=== PATIENT | female | born 2000 | race Caucasian/White ===

== ENCOUNTER 2022-12-02 15:50 | Outpatient (REF) | payer MEDICAID, SELFPAY ==
[2022-12-02 17:49] LABS: MANUAL DIFF FLAG NO
[2022-12-02 18:01] LABS: Basophils Absolute Auto 0.1 X10*3/uL (0.0-0.2); Basophils Percent Auto 0.8 % (0-2); Eosinophils Absolute Auto 0.2 X10*3/uL (0.0-0.4); Eosinophils Percent Auto 1.9 % (0-4); Hematocrit 39.8 % (37.0-47.0); Hemoglobin 12.4 g/dl (12.0-16.0); Imm Gran Abs Auto 0.04 X10*3/uL (0.00-0.03); Imm Gran Pct Auto 0.5 % (0.0-0.4); Lymphocytes Absolute Auto 2.6 X10*3/uL (1.2-4.9); Lymphocytes Percent Auto 31.5 % (20-40); Mean Corpuscular HGB Conc 31.2 g/dl (31.0-35.0); Mean Corpuscular Hemoglobin 27.8 pg (27.0-33.0); Mean Corpuscular Volume 89.2 fL (80.0-98.0); Mean Platelet Volume 10.9 fL (9.4-12.3); Monocytes Absolute Auto 0.5 X10*3/uL (0.1-1.2); Monocytes Percent Auto 6.4 % (2-11); Neutrophils Absolute Auto 4.9 x10*3/uL (2.0-8.3); Neutrophils Percent Auto 58.9 % (45-73); Platelet Count 351 X10*3/uL (160-400); Red Blood Count 4.46 X10*6/uL (4.20-5.50); Red Cell Distribution Width 12.5 % (11.0-16.0); White Blood Count 8.4 X10*3/uL (4.8-10.8)
[2022-12-03 01:48] LABS: Alanine Aminotransferase 22 U/L (0-31); Albumin Level 3.8 g/dL (3.5-5.0); Alkaline Phosphatase 54 U/L (39-117); Anion Gap 9 (12-20); Aspartate Amino Transferase 23 U/L (5-31); Bilirubin Direct 0.1 mg/dL (0.0-0.5); Bilirubin Total 0.3 mg/dL (0.0-1.0); Blood Urea Nitrogen 10 mg/dL (9-16); Calcium 9.2 mg/dL (8.4-10.2); Carbon Dioxide 26 mmol/L (22-29); Chloride 107 mmol/L (96-108); Cholesterol 147 mg/dL; Estimated Glomerular Filt Rate > 60; Glucose Random 88 mg/dL (60-115); HDL Cholesterol 37 mg/dL; LDL Cholesterol Calculated 80 mg/dl; Potassium 4.1 mmol/L (3.3-5.1); Sodium 138 mmol/L (135-145); Total Protein 7.2 g/dL (6.5-8.0); Triglycerides 151 mg/dL
== END 2022-12-02 15:51 | disposition home or self-care (01) ==
LOC: HO.HHCL 15:50
PROVIDERS: Visit Provider Internal Medicine
DX: E66.01 Morbid (severe) obesity due to excess calories (principal); Z68.43 Body mass index [BMI] 50.0-59.9, adult
CPT/HCPCS: 36415; 80048; 80061; 80076; 84443; 85025

== ENCOUNTER 2022-12-12 16:42 | Outpatient (REF) | payer MEDICAID, SELFPAY | END 2022-12-12 16:43 | disposition home or self-care (01) | LOC: HO.HHCLNP 16:42 | PROVIDERS: Visit Provider Advanced Practice Midwife | DX: Z12.4 Encounter for screening for malignant neoplasm of cervix (principal) | CPT/HCPCS: 88142 ==

== ENCOUNTER 2023-03-19 09:58 | Outpatient (REF) | payer MEDICAID, SELFPAY ==
[2023-03-19 11:53] LABS: Glucose Fasting 106 mg/dL (60-99)
[2023-03-19 11:55] LABS: Estimated Average Glucose 103 mg/dL; Hemoglobin A1c % 5.2 % (<6.0)
== END 2023-03-19 09:59 | disposition home or self-care (01) ==
LOC: HO.HHCL 09:58
PROVIDERS: Visit Provider Emergency Medicine
DX: E66.01 Morbid (severe) obesity due to excess calories (principal)
CPT/HCPCS: 36415; 82947; 83036

== ENCOUNTER → 2023-05-20 11:00 | Outpatient (BNV) | payer MEDICAID, SELFPAY | PROVIDERS: Visit Provider Radiology Diagnostic Radiology | DX: N63.15 Unspecified lump in the right breast, overlapping quadrants (principal) | CPT/HCPCS: 76642 ==

== ENCOUNTER 2023-05-20 11:06 | Outpatient (REF) | payer MEDICAID, SELFPAY ==
--- NOTE | ~2023-05-20 | US_ITS ---
EXAMINATION: US DIAGNOSTIC ULTRASOUND BREAST, RIGHT CLINICAL INFORMATION: 22-year-old female complaining of 2 new palpable small hard pea-sized foci at the 12:00 axis of the right breast. COMPARISON: No priors. TECHNIQUE: Ultrasound of the right breast is performed with real-time gillette scale imaging and color Doppler. Attention was given spanning the 11:00 to 1:00 axes to include the palpable foci of concern. FINDINGS: There is no focal suspicious finding. There is no solid mass, cystic abnormality, architectural abnormality, duct ectasia, or edema in the soft tissue planes. Only normal fatty breast tissue was visualized. No ultrasonographic correlate to the palpable foci was identified. US/US breast RT limited mamm only IMPRESSION: No suspicious abnormalities. No ultrasonographic correlate to the palpable foci was identified in the right breast. Decision to biopsy any palpable focus without imaging correlate must be determined on a clinical basis. ASSESSMENT: BI-RADS 1 - Negative RECOMMENDATION: 1. Patient should be managed based on the clinical impression. Decision to proceed with biopsy should be based on clinical grounds and degree of clinical concern.
== END 2023-05-20 11:07 | disposition home or self-care (01) ==
LOC: HO.MAMMO 11:06
PROVIDERS: Visit Provider Registered Nurse
DX: N63.11 Unspecified lump in the right breast, upper outer quadrant (principal)
CPT/HCPCS: 76642

== ENCOUNTER 2023-08-29 09:15 | Outpatient (REF) | payer MEDICAID, SELFPAY ==
[2023-08-29 11:34] LABS: MANUAL DIFF FLAG NO
[2023-08-29 11:42] LABS: Basophils Absolute Auto 0.1 X10*3/uL (0.0-0.2); Basophils Percent Auto 0.8 % (0-2); Eosinophils Absolute Auto 0.1 X10*3/uL (0.0-0.4); Eosinophils Percent Auto 2.2 % (0-4); Hematocrit 39.3 % (37.0-47.0); Hemoglobin 12.9 g/dl (12.0-16.0); Imm Gran Abs Auto 0.02 X10*3/uL (0.00-0.03); Imm Gran Pct Auto 0.3 % (0.0-0.4); Lymphocytes Absolute Auto 2.1 X10*3/uL (1.2-4.9); Lymphocytes Percent Auto 32.7 % (20-40); Mean Corpuscular HGB Conc 32.8 g/dl (31.0-35.0); Mean Corpuscular Hemoglobin 28.9 pg (27.0-33.0); Mean Corpuscular Volume 88.1 fL (80.0-98.0); Mean Platelet Volume 10.8 fL (9.4-12.3); Monocytes Absolute Auto 0.4 X10*3/uL (0.1-1.2); Neutrophils Absolute Auto 3.6 x10*3/uL (2.0-8.3); Platelet Count 347 X10*3/uL (160-400); Red Blood Count 4.46 X10*6/uL (4.20-5.50); Red Cell Distribution Width 12.1 % (11.0-16.0); White Blood Count 6.3 X10*3/uL (4.8-10.8)
[2023-08-29 11:51] LABS: Estimated Average Glucose 111 mg/dL; Hemoglobin A1c % 5.5 % (<6.0)
[2023-08-29 12:08] LABS: Anion Gap 15 (12-20); Blood Urea Nitrogen 18 mg/dL (9-16); Calcium 9.7 mg/dL (8.4-10.2); Carbon Dioxide 23 mmol/L (22-29); Chloride 107 mmol/L (96-108); Estimated Glomerular Filt Rate > 60; Glucose Random 102 mg/dL (60-115); Sodium 141 mmol/L (135-145); Uric Acid 7.2 mg/dL (2.4-5.7)
[2023-09-03 23:10] LABS: Lyme Abs Screen <0.90 index
== END 2023-08-29 09:16 | disposition home or self-care (01) ==
LOC: HO.HHCL 09:15
PROVIDERS: Visit Provider Emergency Medicine
DX: M79.671 Pain in right foot (principal); M79.672 Pain in left foot; N93.9 Abnormal uterine and vaginal bleeding, unspecified
CPT/HCPCS: 36415; 80048; 83036; 84550; 85025; 86617; 86618

== ENCOUNTER 2023-11-19 09:31 | Outpatient (REF) | payer MEDICAID, SELFPAY ==
[2023-11-19 11:22] LABS: MANUAL DIFF FLAG NO
[2023-11-19 11:35] LABS: Basophils Absolute Auto 0.1 X10*3/uL (0.0-0.2); Basophils Percent Auto 0.7 % (0-2); Eosinophils Absolute Auto 0.2 X10*3/uL (0.0-0.4); Eosinophils Percent Auto 1.8 % (0-4); Hematocrit 42.4 % (37.0-47.0); Hemoglobin 13.5 g/dl (12.0-16.0); Imm Gran Abs Auto 0.05 X10*3/uL (0.00-0.03); Imm Gran Pct Auto 0.6 % (0.0-0.4); Lymphocytes Percent Auto 24.3 % (20-40); Mean Corpuscular HGB Conc 31.8 g/dl (31.0-35.0); Mean Corpuscular Hemoglobin 28.5 pg (27.0-33.0); Mean Corpuscular Volume 89.6 fL (80.0-98.0); Mean Platelet Volume 10.6 fL (9.4-12.3); Monocytes Absolute Auto 0.6 X10*3/uL (0.1-1.2); Monocytes Percent Auto 6.7 % (2-11); Neutrophils Absolute Auto 5.5 x10*3/uL (2.0-8.3); Neutrophils Percent Auto 65.9 % (45-73); Platelet Count 374 X10*3/uL (160-400); Red Blood Count 4.73 X10*6/uL (4.20-5.50); Red Cell Distribution Width 12.6 % (11.0-16.0); White Blood Count 8.3 X10*3/uL (4.8-10.8)
[2023-11-19 12:14] LABS: Anion Gap 9 (12-20); Blood Urea Nitrogen 9 mg/dL (9-16); Calcium 10.2 mg/dL (8.4-10.2); Carbon Dioxide 28 mmol/L (22-29); Chloride 105 mmol/L (96-108); Estimated Glomerular Filt Rate > 60; Glucose Random 104 mg/dL (60-115); Sodium 138 mmol/L (135-145)
[2023-11-19 12:15] LABS: HCG Quantitative < 2 mIU/mL; TSH reflex Free T4 2.01 uIU/mL (0.32-4.0); Vitamin D 25-OH Total 38.3 ng/mL (>30)
[2023-11-19 12:20] LABS: Vitamin B12 404 pg/mL (200-900)
== END 2023-11-19 09:32 | disposition home or self-care (01) ==
LOC: HO.HHCL 09:31
PROVIDERS: Visit Provider Emergency Medicine
DX: R42 Dizziness and giddiness (principal); N93.9 Abnormal uterine and vaginal bleeding, unspecified
CPT/HCPCS: 36415; 80048; 82306; 82607; 84443; 84702; 85025

== ENCOUNTER 2023-11-27 14:34 | Outpatient (REF) | payer MEDICAID, SELFPAY ==
--- NOTE | ~2023-11-27 | CT_ITS ---
EXAMINATION: CT HEAD WITHOUT CONTRAST CLINICAL INFORMATION: 22-year-old female complaining of intermittent frontal headaches. COMPARISON: None available. TECHNIQUE: Contiguous axial imaging was performed from the skull base to vertex without intravenous administration of contrast. This CT examination was performed using dose optimization techniques as appropriate, variously including the following: *Automated exposure control *Adjustment of mA and/or kV according to patient size (this includes techniques or standardized protocols for targeted exams where dose is matched to indication/reason for exam; i.e. extremities or head) *Use of iterative reconstruction technique DLP: 913 mGy-cm FINDINGS: There is no evidence of intracranial hemorrhage or extra-axial fluid collection. There is no mass effect, or edema. No CT evidence of acute territorial infarct. Ventricles, sulci, and cisterns are normal in size and configuration for patient age. No hydrocephalus. No midline shift. No significant white matter abnormalities. The sella appears normal. Cerebellar tonsils are appropriately located. Globes and orbital contents image normally. Extracranial soft tissues demonstrate complete atrophy of the right parotid gland. No additional abnormalities. The paranasal sinuses, mastoid air cells, and tympanic cavities are normally aerated. No suspicious bony abnormalities. CT/CT head/brain wo IV con IMPRESSION: 1. No acute intracranial abnormality. 2. Normal intracranial structures. 3. 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 If symptoms continue, MRI would be advised.
== END 2023-11-27 14:35 | disposition home or self-care (01) ==
LOC: HO.CT 14:34
PROVIDERS: Visit Provider Emergency Medicine
DX: R51.9 Headache, unspecified (principal); R42 Dizziness and giddiness
CPT/HCPCS: 70450

== ENCOUNTER → 2023-11-27 14:36 | Outpatient (BNV) | payer MEDICAID, SELFPAY | PROVIDERS: Visit Provider Radiology Diagnostic Radiology | DX: R51.9 Headache, unspecified (principal) | CPT/HCPCS: 70450 ==

== ENCOUNTER 2023-12-18 12:53 | Outpatient (REF) | payer MEDICAID, SELFPAY ==
--- NOTE | ~2023-12-18 | US_ITS ---
EXAMINATION: US PELVIS CLINICAL INFORMATION: Left lower quadrant pelvic pain COMPARISON: None available. TECHNIQUE: Ultrasound of the pelvis is performed using both transabdominal and transvaginal transducers along with Doppler. Transvaginal imaging is performed due to inadequate visualization transabdominally. FINDINGS: Uterus: The uterus is anteverted and measures 8.6 x 4.0 x 4.5 cm. No focal fibroid. The endometrial thickness is 0.5 cm. Adnexa: Both ovaries are visualized. There is normal color flow to the adnexa. There is no ovarian torsion. There is no pelvic ascites or fluid collection. Right ovary measures 2.8 x 2.7 x 2.2 cm. Volume 8.7 mL. Left ovary measures 3.5 x 2.3 x 2.2 cm. Volume 13.5 mL. 2.0 x 1.3 x 2.2 cm follicle, normal finding, is seen. No imaging follow-up is recommended. US/US pelvic and transvaginal IMPRESSION: Normal uterus and ovaries. Electronically signed by: Erin Burciaga MD 12/18/2023 03:34 PM EDT
== END 2023-12-18 12:54 | disposition home or self-care (01) ==
LOC: HO.US 12:53
PROVIDERS: Visit Provider Advanced Practice Midwife
DX: R10.2 Pelvic and perineal pain (principal)
CPT/HCPCS: 76830; 76856

== ENCOUNTER 2024-07-26 06:59 | Emergency (ER) | payer MEDICAID, SELFPAY ==
--- NOTE | ~2024-07-26 | US_ITS ---
EXAMINATION: US ABDOMEN LIMITED HISTORY: RUQ pain, GB and CBD please TECHNIQUE: Real-time grayscale ultrasound imaging of the gallbladder was performed and images were reviewed. COMPARISON: There are no prior studies for comparison. FINDINGS: The gallbladder is unremarkable in appearance. No calculi are identified. There is no wall thickening or pericholecystic fluid. The common bile duct is normal in caliber measuring 3 mm in diameter. US/US abdomen limited IMPRESSION: Unremarkable ultrasound of the gallbladder. Electronically signed by: Elvis Summers MD 07/26/2024 09:05 AM EDT
--- NOTE | ~2024-07-26 | CT_ITS ---
EXAMINATION: CT ABDOMEN PELVIS WITHOUT IV CONTRAST HISTORY: severe R flank pain COMPARISON: There are no prior studies for comparison. TECHNIQUE: CT scan of the abdomen and pelvis was performed without contrast using standard departmental protocol. Coronal and sagittal reformatted images were generated and reviewed. Oral contrast material was not administered per department protocol. This CT exam was performed with one or more of the following dose reduction techniques: automated exposure control, adjustment of the mA and/or kV according to patient size, use of iterative reconstruction technique. DLP: 1612 mGy-cm FINDINGS: LOWER CHEST: There is patchy airspace opacity at the right lung base, consistent with pneumonia. The visualized left lung base is clear. There is no pleural effusion. CARDIOVASCULATURE: The heart is normal in size. There is no pericardial effusion. LIVER: The liver is normal in size and contour. The liver demonstrates heterogeneously decreased attenuation, consistent with steatosis. GALLBLADDER / BILE DUCTS: The gallbladder is unremarkable. There is no intra or extrahepatic biliary ductal dilatation. SPLEEN: The spleen is normal in size and has an unremarkable unenhanced appearance. PANCREAS: The pancreas has an unremarkable unenhanced appearance. ADRENAL GLANDS: Unremarkable. KIDNEYS/RETROPERITONEUM: No renal calculi are identified. There is mild right hydroureteronephrosis to the level of a 1-2 mm UVJ calculus. No left renal or ureteral calculi are identified.. LYMPH NODES: No retroperitoneal lymphadenopathy is identified in the abdomen or pelvis. VASCULATURE: The abdominal aorta is normal in caliber. MESENTERY/PERITONEUM: No free fluid. No masses. There is no free intraperitoneal gas. STOMACH: The stomach is collapsed, limiting evaluation. SMALL BOWEL: The small bowel is normal in caliber. COLON: The colon is unremarkable. APPENDIX: Normal. URINARY BLADDER/PELVIC ORGANS: The urinary bladder is collapsed, limiting evaluation. The uterus and ovaries have an unremarkable unenhanced appearance. BONES / SOFT TISSUES: No suspicious bony or soft tissue abnormalities. CT/CT abdomen pelvis wo IV con IMPRESSION: 1. Mild right hydroureteronephrosis to the level of a 1-2 mm UVJ calculus. 2. Right lower lobe pneumonia. 3. Hepatic steatosis. Electronically signed by: Elvis Summers MD 07/26/2024 09:43 AM EDT RP
[2024-07-26 07:19] VITALS: BP 139/77; PULSE 83; RESP 18; TEMP 36.2; O2SAT 96; BMI 52.7
--- NOTE | 2024-07-26 07:36 | ED_ITS ---
HPI - Abdominal Pain General Chief Complaint: Abdominal Pain Stated Complaint: right side and back pain, vomiting Time Seen by Provider: 07/26/24 07:29 Source: patient and family Mode of arrival: ambulatory Limitations: no limitations History of Present Illness ED Provider: RODERICK HPI narrative: 23 yo female with PMH of obesity but no prior surgery and no medications taken at home. At [facility] for dinner last night. She woke up abrupty with severe RUQ wrapping around to her back at 6am. She reports n/v no diarrhea and no fevers. She has never had anything like this before. Pain is severe MD elicited complaint: abdominal pain Pertinent past history: none Onset (ago): hour(s) (6am today) Pain Consistency: constant Location: RUQ Severity: severe Quality: stabbing Radiation: back Exacerbating factors: movement Relieving factors: nothing Associated symptoms: nausea and vomiting Related Data Previous Rx's ?Medication ?Instructions ?Recorded amoxicillin 875 mg-potassium 1 tab PO BID #14 tabs 07/26/24 clavulanate 125 mg tablet azithromycin 250 mg tablet See Rx Instructions PO .COMPLEX #6 07/26/24 tabs ibuprofen 600 mg tablet 600 mg PO Q6H PRN pain #30 tabs 07/26/24 ondansetron 4 mg disintegrating 4 mg PO Q8H PRN nausea and 07/26/24 tablet vomiting #20 tabs tamsulosin 0.4 mg capsule 0.4 mg PO DAILY 5 days #5 caps 07/26/24 Allergies Allergy/AdvReac Type Severity Reaction Status Date / Time No Known Allergies Allergy Verified 07/26/24 07:22 Review of Systems Review of Systems Constitutional : No Weight loss, No Fever, No Chills ENT/Mouth : No sore throat, No Rhinorrhea Eyes: No Swelling, No Redness Cardiovascular : No Chest Pain, No SOB, NoEdema Respiratory : No Cough, No Sputum, No Wheezing Gastrointestinal : Positive Nausea, Positive Vomiting, no Diarrhea, positive abdominal Pain, No Hematochezia, No Melena Genitourinary : No Dysuria, No Urinary Frequency, No Hematuria, No Urgency Musculoskeletal : No joint pain, No Myalgias, No Joint Swelling Skin : No Skin Lesions, No rash Neuro : No Weakness, No Numbness, No Dizziness, No Headache Psych : No Anxiety/Panic, No Depression All other systems reviewed and are negative. PMFSH Past Medical History Attestation statement: The following information was validated with the patient. Source: old records reviewed Medical History (Updated 07/26/24 @ 10:41 by Estefani Alaniz DO) Obesity Social History Social History (Updated 07/26/24 @ 07:46 by Estefani Alaniz DO) Patient Tobacco Use Status: Never used Tobacco Advance Directives: No Advance Directives Information Provided: No Do you have a plan to hurt others: No Plan Physical Exam ED Vital Signs: Vital Signs - 24 hr 07/26/24 07:19 Temperature 97.1 F Pulse Rate 83 Respiratory Rate 18 Blood Pressure 139/77 Pulse Oximetry 96 Oxygen Delivery Method Room Air BMI result Body Mass Index 52.7 Appearance: Alert. Oriented X3. in pain mild acute distress. Eyes: Pupils equal, round and reactive to light. ENT: Pharynx normal. Neck: Normal inspection. Neck supple. CVS: Normal heart rate and rhythm. Pulses normal. Respiratory: No respiratory distress. Breath sounds normal. Abdomen: Obese moderate RUQ pain + ag's sign. Skin: Skin warm and dry. Normal skin color. Normal skin turgor. Extremities: No lower extremity edema. No calf ttp Neuro: Oriented X 3. No motor deficit. No sensory deficit. CN2-12 intact Course Course Course Narrative: given degree of her pain and normal US I am going to repeat IV pain medications, CT scan ordered Medical Decision Making Medical Decision Making [facility] Narrative: 23 yo female with PMH of obesity here with RUQ pain n/v after eating [employer] last night she denies fevers or diarrhea. She has very localized pain to RUQ with + ag's sign at this time labs, US of GB ordered, fluids and IV toradol/morphine for pain. Possible gastritis, GERD, biliary colic, pancreatitis, renal colic Differential Diagnosis Differential Diagnoses: The differential diagnosis associated with the presentation includes gastritis, GERD, biliary colic, renal colic Admission/Observation Consideration of admission/observation: Escalation of care including admission/observation considered feels much better able to tolerate PO labs and Cr normal Lab Data [facility] Lab Attestation statement: I reviewed the patient's lab results. 07/26/24 07:49 07/26/24 07:49 Labs: Lab Results 07/26/24 07/26/24 Range/Units 07:49 10:41 WBC 6.1 (4.8-10.8) X10*3/uL RBC 4.36 (4.20-5.50) X10*6/uL Hgb 12.1 (12.0-16.0) g/dl Hct 37.4 (37.0-47.0) % MCV 85.8 (80.0-98.0) fL MCH 27.8 (27.0-33.0) pg MCHC 32.4 (31.0-35.0) g/dl RDW 12.4 (11.0-16.0) % Plt Count 317 (160-400) X10*3/uL MPV 9.9 (9.4-12.3) fL Immature Gran % (Auto) 0.7 H (0.0-0.4) % Neut % (Auto) 64.2 (45-73) % Lymph % (Auto) 23.6 (20-40) % [facility] [place] [facility] % (Auto) 8.8 (2-11) % Eos % (Auto) 2.0 (0-4) % Baso % (Auto) 0.7 (0-2) % Lymph # (Auto) 1.5 (1.2-4.9) X10*3/uL [facility] # (Auto) 0.5 (0.1-1.2) X10*3/uL Eos # (Auto) 0.1 (0.0-0.4) X10*3/uL Baso # (Auto) 0.0 (0.0-0.2) X10*3/uL Abs Immat Gran (auto) 0.04 H (0.00-0.03) X10*3/uL Absolute Neuts (auto) 4.0 (2.0-8.3) x10*3/uL Absolute Nucleated RBC 0.000 (0.0-0.012) X10*3/uL Nucleated RBC % (auto) 0.0 (0.0-0.2) /100WBC Sodium 140 (135-145) mmol/L Potassium 3.7 (3.3-5.1) mmol/L Chloride 111 H (96-108) mmol/L Carbon Dioxide 22 (22-29) mmol/L Anion Gap 11 L (12-20) BUN 11 (9-16) mg/dL Creatinine 0.88 (0.5-1.4) mg/dL Estim Creat Clear Calc 156.1 Estimated GFR > 60 Random Glucose 157 H (60-115) mg/dL Calcium 9.1 D (8.4-10.2) mg/dL Magnesium 1.8 (1.6-2.6) mg/dL Total Bilirubin 0.3 (0.0-1.0) mg/dL AST 51 H (5-31) U/L ALT 76 H (0-31) U/L Alkaline Phosphatase 68 (39-117) U/L Total Protein 7.5 (6.5-8.0) g/dL Albumin 3.9 (3.5-5.0) g/dL Lipase 24 (8-78) U/L Beta HCG, Quant < 2 mIU/mL Urine Color Dark Yellow Urine Appearance Turbid Urine pH 5.0 (5.0-9.0) Ur Specific Hill >= 1.030 H (1.005-1.025) Urine Protein 300 (3+) H (Neg-Trace) mg/dL Urine Glucose (UA) Negative (Negative) mg/dL Urine Ketones Trace (Negative) mg/dL Urine Blood Large (3+) H (Negative) Urine Nitrite Negative (Negative) Ur Leukocyte Esterase Negative (Negative) Urine RBC >20 H (0-2) /HPF Urine WBC 0-5 (0-5) /HPF Ur Squamous Epith Cells 11-20 (0-2) /HPF Other Crystals Present Urine Bacteria 1+ (None Seen) Hyaline Casts 0-2 (0-2) /LPF Independent Interpretation I performed an independent interpretation of an: Ultrasound (no GB pathology) and CT Scan (R LL pneumonia has had cough, R distal UVJ stone) Radiology Impression Discussion of test interpretation with radiology: I have reviewed the radiologist's reading. Independent Historian Clinical information obtained from an independent historian. History obtained from or confirmed by: Parent Prescription Management I considered prescription management with: Pain Medication, Antibiotic and Other Medications Administered Discontinued Medications Generic Name Dose Route Start Last Admin Trade Name Freq PRN Reason Stop Dose Admin Hydromorphone HCl 1 mg 07/26/24 09:11 07/26/24 09:31 Hydromorphone Hcl 1 Mg/Ml Syringe IVPUSH 07/26/24 09:12 1 mg ONCE ONE Administration Protocol Lactated Ringer's 1,000 mls @ 999 mls/hr 07/26/24 07:44 07/26/24 09:32 Lr IV 07/26/24 08:44 Infused .Q1H1M ONE Infusion Ketorolac Tromethamine 15 mg 07/26/24 07:43 07/26/24 07:57 Ketorolac Tromethamine 15 Mg/Ml Vial IVPUSH 07/26/24 07:44 15 mg ONCE ONE Administration Morphine Sulfate 4 mg 07/26/24 07:43 07/26/24 07:56 Morphine Sulfate 4 Mg/Ml Cartridge IVPUSH 07/26/24 07:44 4 mg ONCE ONE Administration Protocol Ondansetron HCl 4 mg 07/26/24 07:43 07/26/24 07:54 Ondansetron Hcl 4 Mg/2 Ml Vial IVPUSH 07/26/24 07:44 4 mg ONCE ONE Administration Critical Care Time Critical Care Time Critical Care Time: Yes Total Critical Care Time: 35 Attestation: repeat assessments with pain improved after IV morphine, IV dilaudid I attest to this time spent taking care of the patient Discharge Plan Discharge Clinical Impression: Renal colic Pneumonia Qualifiers: Pneumonia type: due to unspecified organism Laterality: right Lung location: l ower lobe of lung Qualified Code(s): J18.9 - Pneumonia, unspecified organism Patient Disposition: Home, Self-Care Instructions: Renal Colic (ED), Community Acquired Pneumonia (ED) Additional Instructions: stay hydrated and rest drink 40 ounces of water a day return for severe pain, fevers, vomiting, unable to urinate or any other concerns. you will pass this stone at home follow up with primary care doctor Prescriptions: New azithromycin 250 mg tablet See Rx Instructions .ROUTE .COMPLEX Qty: 6 0RF Rx Instructions: For 250 mg dose pack: take 500 mg today (day 1), then 250 mg for 4 days (days 2-5) ibuprofen 600 mg tablet 600 mg PO Q6H PRN (Reason: pain) Qty: 30 0RF ondansetron 4 mg tablet,disintegrating 4 mg PO Q8H PRN (Reason: nausea and vomiting) Qty: 20 0RF amoxicillin-pot clavulanate 875-125 mg tablet 1 tab PO BID Qty: 14 0RF tamsulosin 0.4 mg capsule 0.4 mg PO DAILY 5 Days Qty: 5 0RF Stand Alone Forms: Work/School Release Print Language: Lao
--- OUTSIDE RECORDS SUMMARY | 2024-07-26 07:47 | XMS_ITS | Encounter Summary ---
Author Organization [employer] Address [address] [facility] [address] [place] [address] Care Team Providers Care Commercial Specialist Name Role Phone Claudette Garcia MD Primary Care Provide r Reason for Visit * Reason Onset Date Comments Med Refill 05/06/2023 Encounter Details Date Type Department Care Team (Late st Contact Info) Description 05/06/2023 Refill [facility] MEDICINE [address] [place], [place] [phone] Claudette Garcia MD [address] [place] [address] Pruritus of both hands Social History Tobacco Use Types Packs/Day Years Used Date Smoking Tobacco: Never Passive Smoke Exposure: Never Smokeless Tobacco: Never Depression Answer Date Recorded Patient Health Questionnaire-9 Score 11 12/02/2022 Housing Stability Answer Date Recorded What is your housing situation today? I have indra shelton 02/02/[address] you li ve. Do you have problems with any of the following? None of the above 02/02/2023 Food Insecurity Answer Date Recorded Within the past 12 months, y ou worried that your food would run out before you got money to buy more: Never True 02/02/2023 Within the past 12 months,th e food you bought just didn't last and you didn't have enough money to get more: Never True Transportation Answer Date Recorded In the past 12 months, has l ack of transportation kept you from medical appts, meetings, work or from getting things needed for daily living? No 02/02/2023 Utilities Answer Date Recorded In the past 12 months, has t he electric, gas, oil or water company threatened to shut off services in your home? No 02/02/2023 Depression Answer Date Recorded Patient Health Questionnaire-2 Score 2 12/02/2022 Comments No Sex and Gender Information Value Date Recorded Sex Assigned at Female 02/18/2022 10:40 AM EDT Legal Sex Female 10:40 AM EDT Gender Identity Female 02/18/2022 10:40 AM EDT Sexual Orientation Straight 08/01/2022 6: 41 PM EDT documented as of this encounter Plan of Treatment Not on file documented as of this encounter Visit Diagnoses Diagnosis Pruritus of both hands documented in this encounter Additional Health Concerns Assessment Noted Time PHQ-9 Depression Total Score: 11 023 2:41 PM EDT documented as of this encounter Care Teams Commercial Specialist Relationship Specialty Start Date End Date Claudette Garcia MD [address] [place] [id number] PCP - General Family Medicine 01/25/22 documented as of this encounter
--- OUTSIDE RECORDS SUMMARY | 2024-07-26 07:47 | XMS_ITS | Encounter Summary ---
Author Organization [employer] Address [address] [address] [place] [address] Care Team Providers Care Train Electronic Technician Name Role Phone Claudette Garcia MD Primary Care Provide r Encounter Details Date Type Department Care Team (Late st Contact Info) Description 09/01/2023 Orders Only [facility] [address] [place], [place] [phone] Jesus Snow MD [address] [place], [place] [phone] Social History Tobacco Use Types Packs/Day Years [...] documented as of this encounter Visit Diagnoses Not on filedocumented in this encounter Additional Health Concerns Assessment Noted Time PHQ-9 Depression Total Score: 11 023 2:41 PM EDT documented as of this encounter Care Teams Train Electronic Technician Relationship Specialty Start Date End Date Claudette Garcia MD [address] [place] [address] PCP - General Family Medicine 01/25/22 documented as of this encounter
--- OUTSIDE RECORDS SUMMARY | 2024-07-26 07:47 | XMS_ITS | Encounter Summary ---
Author Organization [employer] Address [address] [facility] [address] [place] [address] Care Team Providers Care Financial Consultant Name Role Phone Claudette Garcia MD Primary Care Provide r Reason for Visit * Reason Onset Date Comments Med Refill 05/06/2023 Encounter Details Date Type Department Care Team (Late st Contact Info) Description 05/06/2023 Refill [facility] [address] [place], [place] [phone] Wilman Boudreaux MD [address] [place] [address] COVID-19 Social History Tobacco Use Types Packs/Day Years [...] as of this encounter Visit Diagnoses Diagnosis COVID-19 documented in this encounter Additional Health Concerns Assessment Noted Time PHQ-9 Depression Total Score: 11 023 2:41 PM EDT documented as of this encounter Care Teams Financial Consultant Relationship Specialty Start Date End Date Claudette Garcia MD [address] [place] [address] PCP - General Family Medicine 01/25/22 documented as of this encounter
--- OUTSIDE RECORDS SUMMARY | 2024-07-26 07:47 | XMS_ITS | Encounter Summary ---
Author Organization [employer] Address [address] [facility] [address] [place] [address] Care Team Providers Care Clinical Laboratory Scientist Name Role Phone Claudette Garcia MD Primary Care Provide r Reason for Visit * Reason Onset Date Comments Results 12/16/2022 PAP results Encounter Details Date Type Department Care Team ([facility] st Contact Info) Description 12/16/2022 Telephone [facility] MEDICINE [address] [place], [place] [phone] Claudette Garcia MD [address] [place] [phone] Results (PAP results/) Social History Tobacco Use Types Packs/Day Years Used Date Smoking Tobacco: Never Passive Smoke Exposure: Never Smokeless Tobacco: Never Depression Answer Date Recorded Patient Health Questionnaire-9 Score 11 12/02/2022 Depression Answer Date Recorded Patient Health Questionnaire-2 Score 2 12/02/2022 Comments No Sex and Gender Information Value Date Recorded Sex Assigned at Female 02/18/2022 10:40 AM EDT Legal Sex Female 10:40 AM EDT Gender Identity Female 02/18/2022 10:40 AM EDT Sexual Orientation Straight 08/01/2022 6: 41 PM EDT documented as of this encounter Miscellaneous Notes * Telephone Encounter - Diana Fuentes CNM - 12/17/2022 9:47 AM EDT Thanks! * Telephone Encounter - Diana Fuentes CNM - 12/17/2022 8:13 AM EDT Pap results not back yet but we'll be in touch when available. Please let Gisselle know. Thanks! * Telephone Encounter - Tala Rutledge - 12/16/2022 3:21 PM EDT Tc from patient requesting PAP results from 12/12/22. documented in this encounter Plan of Treatment Not on file documented as of this encounter Visit Diagnoses Not on filedocumented in this encounter Additional Health Concerns Assessment Noted Time PHQ-9 Depression Total Score: 11 023 2:41 PM EDT documented as of this encounter Care Teams Clinical Laboratory Scientist Relationship Specialty Start Date End Date Claudette Garcia MD [address] [place] [id number] PCP - General Family Medicine 01/25/22 documented as of this encounter
--- OUTSIDE RECORDS SUMMARY | 2024-07-26 07:47 | XMS_ITS | Clinical Summary ---
Author Organization [employer] Address [address] [facility] [address] [place] [address] Care Team Providers Care Fish Culturist Name Role Phone Claudette Garcia MD Primary Care Provide r Allergies No known active allergies Medications famotidine (Pepcid) 20 MG tablet Take 1 tablet by mouth. 2 Active fluticasone (Flonase Allergy Relief) 50 MCG/ACT nasal spray Administer 1 spray into each nostril in the morning. Shake gently. Before first use, prime pump. After use, clean tip and replace cap. 16 g 3 3 Active cetirizine (ZyrTEC) 10 MG tabletIndication s:Pruritus of both hands Take 1 tablet (10 mg) by mouth in the morning. 30 tablet 2 3 Active hydrocortisone 2.5 % creamIndications :Pruritus of both hands Apply topically 2 times daily. 28 g 3 Active cetirizine (ZyrTEC) 10 MG tablet TAKE 1 TABLET BY MOUTH EVERY DAY 90 tablet 4 Active cholecalciferol (Vitamin D-3) 25 MCG (1000 UT) capsuleIndicatio ns:Vitamin D deficiency TAKE 1 CAPSULE BY MOUTH EVERY DAY 90 capsule 4 Active diphenhydrAMINE (BENADryl) 25 MG capsule TAKE 1 TO 2 CAPSULES EVERY 6 HOURS IF NEEDED FOR ITCHING OR RASH 30 capsule 4 Active hydrocortisone 2.5 % cream APPLY TOPICALLY TWICE A DAY 15 g 1 4 Active naproxen (Naprosyn) 500 MG tablet Take 1 tablet (500 mg) by mouth with breakfast and with evening meal. 10 tablet 11 4 Active acetaminophen (Tylenol) 500 MG tablet Take 2 tablets (1,000 mg) by mouth every 6 (six) hours if needed for moderate pain or fever. 40 tablet 4 Active ibuprofen 400 MG tabletIndication s:COVID-19 TAKE 1 TABLET BY MOUTH EVERY 6 HOURS IF NEEDED FOR FEVER OR MODERATE PAIN 30 tablet 4 Active fluticasone (Flonase) 50 MCG/ACT nasal sprayIndications :Allergic rhinitis, unspecified seasonality, unspecified trigger Administer 1 spray into each nostril Once per day. Shake gently. Before first use, prime pump. After use, clean tip and replace cap. 16 g 2 4 03/22/20 25 Active cetirizine (ZyrTEC) 10 MG tabletIndication s:Allergic rhinitis, unspecified seasonality, unspecified trigger TAKE 1 TABLET BY MOUTH EVERYDAY AT BEDTIME 90 tablet 4 Active omeprazole OTC (PriLOSEC OTC) 20 MG EC tablet Take 1 tablet (20 mg) by mouth before breakfast. Do not crush, chew, or split. 30 tablet 5 06/24/19 26 Active Active Problems Problem Noted Date Diagnosed Date Allergic rhinitis 03/22/2024 Assessment & Plan (03/22/2024 2:39 PM EST): Try to limited use of heaters Humidifier may help I will prescribed Flonase and cetrizine RTC I further concerns Elevated blood uric acid level 09/01/2023 Pruritus of both hands 12/02/2022 Low vision 12/02/2022 Gastroesophageal reflux disease 03/26/2022 Class 3 severe obesity due t o excess calories without serious comorbidity with body mass index (BMI) of 50.0 to 59.9 in adult 03/26/2022 Severe obesity (BMI >= 40) 03/26/2022 Encounters Date Type Department Care Team Description 07/02/2024 Population Health Risk Score [facility] ([facility]) Department [address] [place] [address] Provider, Population Health Generic 06/23/2024 9:40 AM EST Office Visit [facility] [address] [place] [address] Jesus Snow MD Chest pain, unspecified type (Primary Dx); Epigastric pain from Last 3 Months Immunizations Name Administration Dates Next Due DTaP 12/15/2003, 0,06/07/1999,1999,03/12/1999 HPV, Quadrivalent 04/02/2013,01/10/2012,08/28/19 12 Hep B, Adolescent or Pediatric 4,06/07/1999,04/24/1999,1998 Hib (HbOC) 01/25/2000, 0,04/24/1999,1998 IPV 12/15/2003, 0,04/24/1999,1998 Influenza injectable quadriv alent preservative free 01/31/2023,01/22/2022 Influenza, IIV3, injectable 04/02/2013 MMR 12/15/2003,01/25/2000 Pfizer Covid-19 Vaccine 12+ vasquez-sucrose (Sams Cap) 07/30/2021 Pneumococcal Conjugate PCV 7 01/25/2000 Tdap 08/28/2011 Varicella 08/28/2011,01/25/2000 Social History Tobacco Use Types Packs/Day Years Used Date Smoking Tobacco: Never Passive Smoke Exposure: Never Smokeless Tobacco: Never Tobacco Cessation:Counseling Given: Not Answered Depression Answer Date Recorded Patient Health Questionnaire-9 [...] Orientation Straight 08/01/2022 6: 41 PM EDT Last Filed Vital Signs Vital Sign Reading Time Taken Comments Blood Pressure 128/83 06/23/2024 9:11 AM EST Pulse 78 06/23/2024 9:11 AM EST Temperature 36.3 ??C (97.3 ??F) 06/23/2024 9:11 AM ES T Respiratory Rate 18 06/23/2024 9:11 AM EST Oxygen Saturation 96% 06/23/2024 9:11 AM EST RA Inhaled Oxygen Concentration - - Weight 152 kg (335 lb) 03/22/2024 10:58 AM EST Height 175.3 cm (5' 9 ) 12/11/2023 9:58 AM EDT Body Mass Index 49.47 12/11/2023 9:58 AM EDT Plan of Treatment Health Maintenance Due Date Last Done Comments Alcohol/Substance Use Screening 2010 DTaP/Tdap/Td Vaccines (7 - Td or Tdap) 08/27/2021 08/28/2011, 12/15/2003, 01/25/2000, Additional history exists Depression Monitoring (PHQ-9) 06/04/2023 12/02/2022, 12/02/2022 Depression Screening 12/03/2023 12/02/2022, 12/03/19 SDOH Screening 12/03/2023 12/02/2022 COVID-19 Vaccine ( season) 2023 01/22/2022, 07/30/2021 Influenza Vaccine (#1) 2023 , 01/22/2022, 04/02/2013 Family Planning (PISQ) 12/10/2024 12/11/2023 Tobacco Screening 06/23/2025 06/23/2024 Pap Smear 12/11/2025 12/11/2022 Lipid Panel 12/03/2027 12/02/2022, 01/25/2022 Zoster Vaccines (1 of 2) 2048 RSV Patients and Patients Aged 60 years or older (1 - 1-dose 75+ series) 2073 HIB Vaccines Completed 01/25/2000, 05/22, 04/24/1999, Additional history exists Pneumococcal Vaccine: Pediatrics (0 to 5 Years) and At-Risk Patients (6 to 49) Years) Aged Out 01/25/2000 No longer eligible based on patient's age to complete this topic IPV Vaccines Completed 12/15/2003, 05/22, 04/24/1999, Additional history exists Hepatitis B Vaccines Completed 12/30/2003, 06/07/1999, 04/24/1999, Additional history exists HPV Vaccines Completed 04/02/2013, 12/21, 08/28/2011 HIV Screening Completed 01/25/2022 Hepatitis C Screening Completed 01/25/2022 Hepatitis A Vaccines Aged Out No long er eligible based on patient's age to complete this topic Meningococcal Vaccine Aged Out No perez leti eligible based on patient's age to complete this topic RSV under 20 months Aged Out No longe r eligible based on patient's age to complete this topic Rotavirus Vaccines Aged Out No longer eligible based on patient's age to complete this topic Procedures Procedure Name Priority Date/Time Associated Diagnosis Comments ECG 12-LEAD Routine 06/23/2024 1:24 PM EST Chest pain, unspecified type PAP SMEAR Routine 12/11/2022 LIPID PANEL, STANDARD Routine 12/02/2022 3:59 PM EDT Class 3 severe obesity due to excess calories without serious comorbidity with body mass index (BMI) of 50.0 to 59.9 in adult (CMS/HCC) ZZZ HISTORICAL HEPATITIS C AB W/REFL TO HCV RNA, QN, PCR Routine 01/25/2022 10:13 AM EDT HIV 1/2 ANTIGEN/ANTIBODY, FOURTH GENERATION W/RFL Routine 01/25/2022 10:13 AM EDT from Last 3 Months or Most Recently Relevant to Health Maintenance Results * Pap Smear (12/11/2022) 12/11/2022 12/13/2022 8:5 0 AM EDT Narrative [facility] - 12/28/2022 2:13 PM EDT ----- ------- Name: GISSELLE PEREZ ?Age/Sex: 22/F ? : 2000 Unit#: [id number] ?? Attend Dr: JUAN SAWANT CNM ?Re12/12/22 ?Status: DEP REF ? Location: HO.HHCLNP ? Disch: ? ----- ------- SPEC : [id number] ?RECD: 12/13/22-849 ? STATUS: ??SOUT ? REQ NUM: [id number] ? BERYL: 12/11/22- ? SUBM : JAUN SAWANT CNM ? ENTERED: ??12/13/22-1001 ?SP TYPE: Pap Smr ?OTHR : ? ORDERED: ??Pap Smear ? Interpretation ?? Satisfactory for evaluation. ?? Negative for intraepithelial lesion or malignancy. ?Clinical Information LMP: Unknown date Previous PAP test: Unknown date/findings ? Material Received ?? ThinPrep-Vaginal/Cervical ----- ------- Signed (signature on file) Laura Lin Garrett 12/28/22 1413 ? ----- ------- ? END OF REPORT ? us Juan LESTER LAB CYTOLOGY ORDERABLES F inal Result Performing Organization Address [facility] Co de Phone Number [facility] [address] [place] [address] [phone] * Lipid Panel, Standard (12/02/2022 3:59 PM EDT) Triglycerides 151 mg/dL [facility] Comment:Desirable Triglyceri de: less than 150 mg/dLBorderline High Triglyceride 150-199 mg/dLHigh Triglyceride: 200-499 mg/dLVery High Triglyceride: greater than or equal to 5OO mg/dL Cholesterol 147 mg/dL [facility] Comment:Desirable Cholestero l: less than 200 mg/dLBorderline High Cholesterol: 200-239 mg/dLHigh Cholesterol: greater than 239 mg/dL LDL Cholesterol Calculated 80 mg/dl [facility] Comment:Desirable LDL: less than 100 mg/dLNear Optimal/Above Optimal LDL: 110- 129 mg/dLBorderline High LDL: 130-159 mg/dLHigh LDL: 160-189 mg/dLVery High LDL: greater than or equal to 190 mg/dL HDL Cholesterol 37 mg/dL [facility] Comment:Desirable HDL: great er than 40 mg/dL Note: This HDL assay may give artificially low results in patients with liver disease. Blood Venous blood specimen / Unknown 12/02/2022 3:59 PM EDT 12/02/2022 5:47 PM EDT us Claudette Rainey MD LAB BLOOD ORDERABLES Final Result Performing Organization Address [facility]/ZIP Co de Phone Number [facility] [address] [place] [address] [phone] * HEPATITIS C AB W/REFL TO HCV RNA, QN, PCR (01/25/2022 10:13 AM EDT) HEPATITIS C ANTIBODY NON-REACTI VE NON-REACT RYAN [facility] INDEX 0.12 <1.00 [facility] Comment: ?? HCV antibody was non-reactive. There is no laboratory ?? evidence of HCV infection. ?? In most cases, no further action is required. However, if recent HCV exposure is suspected, a test for HCV RNA (test code 15454) is suggested. ?? For additional information please refer to http://[facility]/faq/KXZ83y2 (This link is being provided for informational/ educational purposes only.) ?? 01/25/2022 10:1 3 AM EDT us Claudette Rainey MD HISTORICAL/NON ORDERA BLE LABS Final Result Performing Organization Address [facility]/State/ZIP Co de Phone Number [facility] * HIV 1/2 ANTIGEN/ANTIBODY,FOURTH GENERATION W/RFL (01/25/2022 10:13 AM EDT) HIV-1/2 ANTIGEN AND ANTIBODIES, 4TH GENERATION W/ REFLEX NON-REACT RYAN NON-REACT RYAN [facility] Comment: HIV-1 antigen and HIV-1/HIV-2 antibodies were not detected. There is no laboratory evidence of HIV infection. ?? PLEASE NOTE: This information has been disclosed to you from records whose confidentiality may be protected by state law. ??If your state requires such protection, then the state law prohibits you from making any further disclosure of the information without the specific written consent of the person to whom it pertains, or as otherwise permitted by law. A general authorization for the release of medical or other information is NOT sufficient for this purpose. ? For additional information please refer to http://[facility]/faq/YYX867 (This link is being provided for informational/ educational purposes only.) ? The performance of this assay has not been clinically validated in patients less than 2 years old. ?? 01/25/2022 10:1 3 AM EDT us Claudette Rainey MD LAB BLOOD ORDERABLES Final Result [facility] from Last 3 Months or Most Recently Relevant to Health Maintenance [place] [address] [address] [place] [address] C3 Care Teams Fish Culturist Relationship Specialty Start Date End Date Claudette Garcia MD [address] [place] [phone] PCP - General Family Medicine 01/25/22
--- OUTSIDE RECORDS SUMMARY | 2024-07-26 07:47 | XMS_ITS | Encounter Summary ---
Author Organization [employer] Address [address] [facility] [address] [place] [address] Care Team Providers Care Manager Card Name Role Phone Claudette Garcia MD Primary Care Provide r Reason for Visit * Reason Onset Date Comments Med Refill 05/06/2023 Encounter Details Date Type Department Care Team (Late st Contact Info) Description 05/06/2023 Refill [facility] [address] [place], [place] [phone] Jesus Snow MD [address] [place], [place] [phone] Vitamin D deficiency Social History Tobacco Use Types Packs/Day Years [...] as of this encounter Visit Diagnoses Diagnosis Vitamin D deficiency documented in this encounter Additional Health Concerns Assessment Noted Time PHQ-9 Depression Total Score: 11 023 2:41 PM EDT documented as of this encounter Care Teams Manager Card Relationship Specialty Start Date End Date Claudette Garcia MD [address] [place] [phone] PCP - General Family Medicine 01/25/22 documented as of this encounter
--- OUTSIDE RECORDS SUMMARY | 2024-07-26 07:47 | XMS_ITS | Clinical Summary ---
Author Organization [facility] it Address [address] [place] [address] Care Team Providers Care Head Machine Feeder Name Role Phone Christi Mcdaniel MD Primary Care Provider [phone] Family History Medical History Relation Name Comments Asthma Brother 1 Asthma Other 1 MATERNAL SIDE Other cancer Other 2 MATERNAL SIDE Hypertension Other 3 MATERNAL SIDE Diabetes Other 4 MATERNAL SIDE Hyperlipidemia Paternal Grandmother Relation Name Status Comments Brother 1 Brother 2 Alive yari 09/03/95 Father Alive Other 1 Other 2 Other 3 Other 4 Other 5 Paternal Grandmother Social History Tobacco Use Types Packs/Day Years Used Date Smoking Tobacco: Never Alcohol Use Standard Drinks/Week Comments No 0 (1 standard drink = 0.6 oz pur e alcohol) Comments Unknown Sex and Gender Information Value Date Recorded Sex Assigned at Not on file Legal Sex Female 11:36 PM EST Gender Identity Not on file Sexual Orientation Not on file Obstetrics History Plan of Treatment Health Maintenance Due Date Last Done Comments Cervical Cancer Screening: Pap Smear 12/06/2019 DTaP,Tdap,and Td Vaccines (7 - Td or Tdap) 08/27/2021 08/28/2011, 12/15/2003, 01/25/2000, Additional history exists Depression Screening 03/24/2022 HIV Screening 03/24/2022 Hepatitis C Screening 03/24/2022 Social Influencers of Health Screening 03/24/2022 COVID-19 Vaccine ( season) 2023 Influenza Vaccine (#1) 2023 04/02/2013 HIB Vaccines Completed 01/25/2000, 05/22, 04/24/1999, Additional history exists Pneumococcal Vaccine: Pediatrics (0 to 5 Years) and At-Risk Patients (6 to 64 Years) Aged Out 01/25/2000 No longer eligible based on patient's age to complete this topic IPV Vaccines Completed 12/15/2003, 09/1999, 06/07/1999, Additional history exists MMR Vaccines Completed 12/15/2003, 01/25/2000 Hepatitis B Vaccines Completed 12/30/2003, 06/07/1999, 04/24/1999, Additional history exists Varicella Vaccines Completed 08/28/2011, 01/25/2000 HPV Vaccines Completed 04/02/2013, 12/21, 08/28/2011 Hepatitis A Vaccines Aged Out No long er eligible based on patient's age to complete this topic Meningococcal ACWY Vaccine Aged Out N o longer eligible based on patient's age to complete this topic Meningococcal B Vacine Aged Out No lo nger eligible based on patient's age to complete this topic RSV Immunization Patients Under 20 months Aged Out No longer eligible based on patient's age to complete this topic Care Teams Head Machine Feeder Relationship Specialty Start Date End Date Christi Mcdaniel MD PCP - General 08/10/10
[2024-07-26] MEDS: Lactated Ringers 1,000 ML 999 ML IV (07:50)
[2024-07-26] MEDS: ondansetron HCL 4 MG/2 ML VIAL IVPUSH (07:54)
[2024-07-26 07:55] LABS: MANUAL DIFF FLAG NO
[2024-07-26] MEDS: Morphine Sulfate 4 MG/ML CARTRIDGE IVPUSH (07:56)
[2024-07-26 07:57] LABS: Basophils Percent Auto 0.7 % (0-2); Eosinophils Absolute Auto 0.1 X10*3/uL (0.0-0.4); Hematocrit 37.4 % (37.0-47.0); Hemoglobin 12.1 g/dl (12.0-16.0); Imm Gran Abs Auto 0.04 X10*3/uL (0.00-0.03); Imm Gran Pct Auto 0.7 % (0.0-0.4); Lymphocytes Absolute Auto 1.5 X10*3/uL (1.2-4.9); Lymphocytes Percent Auto 23.6 % (20-40); Mean Corpuscular HGB Conc 32.4 g/dl (31.0-35.0); Mean Corpuscular Hemoglobin 27.8 pg (27.0-33.0); Mean Corpuscular Volume 85.8 fL (80.0-98.0); Mean Platelet Volume 9.9 fL (9.4-12.3); Monocytes Absolute Auto 0.5 X10*3/uL (0.1-1.2); Monocytes Percent Auto 8.8 % (2-11); Neutrophils Percent Auto 64.2 % (45-73); Platelet Count 317 X10*3/uL (160-400); Red Blood Count 4.36 X10*6/uL (4.20-5.50); Red Cell Distribution Width 12.4 % (11.0-16.0); White Blood Count 6.1 X10*3/uL (4.8-10.8)
[2024-07-26] MEDS: Ketorolac Tromethamine 15 MG/ML VIAL IVPUSH (07:57)
[2024-07-26 08:21] LABS: Alanine Aminotransferase 76 U/L (0-31); Albumin Level 3.9 g/dL (3.5-5.0); Alkaline Phosphatase 68 U/L (39-117); Anion Gap 11 (12-20); Aspartate Amino Transferase 51 U/L (5-31); Bilirubin Total 0.3 mg/dL (0.0-1.0); Blood Urea Nitrogen 11 mg/dL (9-16); Calcium 9.1 mg/dL (8.4-10.2); Carbon Dioxide 22 mmol/L (22-29); Chloride 111 mmol/L (96-108); Creatinine Clr Calc Pharmacy 156.1; Estimated Glomerular Filt Rate > 60; Glucose Random 157 mg/dL (60-115); Lipase 24 U/L (8-78); Magnesium 1.8 mg/dL (1.6-2.6); Potassium 3.7 mmol/L (3.3-5.1); Sodium 140 mmol/L (135-145); Total Protein 7.5 g/dL (6.5-8.0)
[2024-07-26 08:25] LABS: HCG Quantitative < 2 mIU/mL
[2024-07-26] MEDS: HYDROmorphone HCl 1 MG/ML SYRINGE IVPUSH (09:31)
[2024-07-26 11:00] LABS: Appearance Urine Turbid; Color Urine Dark Yellow; Glucose Urine UA Negative (Negative); Leukocyte Esterase Urine Negative (Negative); Nitrite Urine Negative (Negative); Specific Gravity - Urine >= 1.030 (1.005-1.025); UMIC TRIGGER UACC YES; Urine Blood Large (3+) (Negative); Urine Ketones Trace mg/dL (Negative); Urine Protein 300 (3+) mg/dL (Neg-Trace)
[2024-07-26 11:05] LABS: Bacteria Urine 1+ (None Seen); Hyaline Casts Urine 0-2 /LPF (0-2); RBC Urine >20 /HPF (0-2); WBC Urine 0-5 /HPF (0-5)
[2024-07-26 11:08] LABS: Other Crystals Urine Present
[2024-07-26 11:25] VITALS: BP 134/83; PULSE 86; RESP 18; TEMP 36.6; O2SAT 95
[2024-07-26 11:29] VITALS: BP 134/83; PULSE 86; RESP 18; TEMP 36.6; O2SAT 95
== END 2024-07-26 11:31 | disposition home or self-care (01) ==
PROVIDERS: Emergency Provider Emergency Medicine; PCP Internal Medicine
DX: J18.9 Pneumonia, unspecified organism (principal); N23 Unspecified renal colic; M54.50 Low back pain, unspecified; R11.2 Nausea with vomiting, unspecified; Z79.899 Other long term (current) drug therapy
CPT/HCPCS: 36415; 74176; 76705; 80053; 81001; 83690; 83735; 84702; 85025; 96361; 96374; 96375; 99284; J1171; J1885; J2270; J2405; J7120

== ENCOUNTER → 2024-07-26 07:43 | Outpatient (BNV) | payer MEDICAID, SELFPAY | PROVIDERS: Emergency Provider Emergency Medicine; PCP Internal Medicine; Visit Provider Radiology Diagnostic Radiology | DX: J18.9 Pneumonia, unspecified organism (principal); K76.0 Fatty (change of) liver, not elsewhere classified; N13.2 Hydronephrosis with renal and ureteral calculous obstruction; R10.11 Right upper quadrant pain | CPT/HCPCS: 74176; 76705 ==

== ENCOUNTER 2025-01-27 18:10 | Outpatient (REF) | payer MEDICAID, SELFPAY ==
[2025-01-28 03:57] LABS: CT PCR NOT DETECTED (Not Detect.); NG PCR NOT DETECTED (Not Detect.)
== END 2025-01-27 18:11 | disposition home or self-care (01) ==
LOC: HO.HHCLNP 18:10
PROVIDERS: Visit Provider Advanced Practice Midwife
DX: Z20.2 Contact with and (suspected) exposure to infections with a predominantly sexual mode of transmission (principal)
CPT/HCPCS: 87491; 87591; 87661

== ENCOUNTER 2025-02-15 19:10 | Emergency (ER) | payer MEDICAID, SELFPAY ==
--- NOTE | 2025-02-15 | ECG_ITS ---
Test Reason : CP Blood Pressure : */* mmHG Vent. Rate : 84 BPM Atrial Rate : 84 BPM P-R Int : 138 ms QRS Dur : 84 ms QT Int : 380 ms P-R-T Axes : 39 35 16 degrees QTcB Int : 449 ms Normal sinus rhythm Normal ECG No previous ECGs available Referred By: Generic ED Physician Electronically Signed By: MYRA ROSS
--- NOTE | ~2025-02-15 | XR_ITS ---
CLINICAL HISTORY: coughig. Pneumonia? 1 view chest x-ray Comparison: None provided Findings: Subtle patchy density in the right lung base. No pleural effusion. No pneumothorax. Normal heart size and central pulmonary vascularity. No acute soft tissue or osseous abnormality. Impression: 1. Patchy density in the right lung base, nonspecific however may represent developing infiltrate when considering provided clinical history. This document has been electronically signed by: Vahe Amos MD on 02/15/2025 21:02:15
[2025-02-15 19:22] VITALS: BP 138/63; PULSE 88; RESP 18; TEMP 36.8; O2SAT 96; BMI 52.1
--- NOTE | 2025-02-15 19:27 | ED.GENADULT ---
HPI - General Adult General Chief complaint: Upper Respiratory Symptoms Stated complaint: Chest pain/Flu like symptoms Time Seen by Provider: 02/15/25 21:59 Source: patient, RN notes reviewed and old records reviewed Mode of arrival: ambulatory Limitations: no limitations History of Present Illness ED Provider: Iraida HEBERT narrative: 24-year-old female presents for evaluation of cough, congestion, chest tightness and pain with inspiration. She reports that her symptoms started 3 days ago. She reports that she is coughing up yellow sputum Denies any recent travel. She is a nonsmoker. Her pain is worse with coughing. Denies any fevers, chills. She does endorse some vomiting and diarrhea that started yesterday No other complaints or concerns at this time Related Data Previous Rx's ?Medication ?Instructions ?Recorded amoxicillin 875 mg-potassium 1 tab PO BID #14 tabs 07/26/24 clavulanate 125 mg tablet azithromycin 250 mg tablet See Rx Instructions PO .COMPLEX #6 07/26/24 tabs ibuprofen 600 mg tablet 600 mg PO Q6H PRN pain #30 tabs 07/26/24 ondansetron 4 mg disintegrating 4 mg PO Q8H PRN nausea and 07/26/24 tablet vomiting #20 tabs tamsulosin 0.4 mg capsule 0.4 mg PO DAILY 5 days #5 caps 07/26/24 amoxicillin 875 mg-potassium 1 tab PO Q12H #14 tabs 02/15/25 clavulanate 125 mg tablet azithromycin 250 mg tablet See Rx Instructions PO .COMPLEX #6 02/15/25 tabs Allergies Allergy/AdvReac Type Severity Reaction Status Date / Time No Known Allergies Allergy Verified 02/15/25 19:27 Review of Systems Constitutional: Constitutional: Denies body ache(s), Denies chills, Denies fever(s), Denies headache(s), Reports lethargy and Reports malaise Eyes: Eyes: Denies irritation ENT: Denies headache(s) and Reports sore throat Cardiovascular: Cardiovascular: Reports dyspnea and Reports dyspnea on exertion Respiratory: Respiratory: Reports change in phlegm color, Reports chest congestion, Reports pain on inspiration, Reports pain with cough, Reports dyspnea and Reports dyspnea on exertion Gastrointestinal: Gastrointestinal: Denies abdominal pain, Reports diarrhea, Reports nausea and Reports vomiting Genitourinary: Genitourinary: Denies dysuria Musculoskeletal: Musculoskeletal: Denies back pain Integumentary/Breasts: Skin/Breast: Denies rash Neurologic: Denies headache(s) Psychiatric: Psychiatric: Denies anxiety [facility] Past Medical History Medical History (Updated 02/16/25 @ 00:00 by Brittney Miranda) Obesity Social History Social History (Updated 07/26/24 @ 07:46 by Estefani Alaniz DO) Patient Tobacco Use Status: Never used Tobacco Advance Directives: No Advance Directives Information Provided: No Physical Exam ED Vital Signs: Vital Signs - 24 hr 02/15/25 19:22 02/15/25 22:35 Temperature 98.3 F 98.3 F Pulse Rate 88 88 Respiratory Rate 18 18 Blood Pressure 138/63 138/63 Pulse Oximetry 96 96 Oxygen Delivery Method Room Air Room Air BMI result Body Mass Index 52.1 Const General: healthy appearing, comfortable, no acute distress, alert and awake Nutritional Appearance: well nourished Orientation/consciousness: patient oriented x3 HENMT Head: Yes normocephalic and Yes atraumatic Throat: Yes posterior oropharynx normal Eyes Eyelids: Yes eyelids normal Conjunctivae: conjunctivae normal Sclerae: sclerae normal Corneas: corneas normal Pupils: Equal, round and reactive pupils present EOM: EOMs intact bilaterally Neck Neck: Yes full ROM Resp Effort & Inspection: normal respiratory effort, able to speak in complete sentences, no audible wheezes and not labored Auscultation: clear to auscultation bilaterally Cardio Rate: regular rate Rhythm: regular rhythm GI Inspection: No distended Palpation (GI): Soft to palpation, not firm, nontender, no guarding and not rigid Skin General skin exam: elasticity normal Neuro General: patient oriented x3 Cranial nerves: Yes Equal, round and reactive pupils present and Yes Bilaterally intact EOM present Cognition (Neuro): normal cognition Extrem Other: Moving all extremities well without any obvious deformities Course Course Course Narrative: RME: 24-year-old female presents to ED for sore throat, itchy throat, coughing with phlegm, chest pain, body aches, diarrhea, and chills for the past couple of days. Swabs strep chest x-ray ordered. EKG nondiagnostic Medical Decision Making Medical Decision Making MDM Narrative: 24-year-old female presents for evaluation of cough, congestion, flu-like symptoms. Her viral swabs are negative. Her chest x-ray shows possible developing infiltrate of the right lower lobes. The patient's physical exam is unremarkable, vital signs within normal limits, she is not hypoxic, she is afebrile. EKG is nonischemic. On review of her medical history, she was treated in July for a right lower lobe pneumonia that was seen an abdominal pelvic CT scan. Therefore the x-ray report today may be a chronic finding as this is the same location. Given the did she does have acute respiratory symptoms I will treat for community-acquired pneumonia again but I recommend a repeat x-ray in 6 weeks when she is feeling better. Differential Diagnosis Differential Diagnoses: The differential diagnosis associated with the presentation includes Community-acquired pneumonia Bronchitis Upper respiratory infection Viral syndrome Influenza COVID-19 Lab Data Labs: Lab Results 02/15/25 Range/Units 19:45 COVID-19 ([facility]ANDA) Negative (Negative) COVID-19 Clin Com See Note Influenza Type A ([facility]) Negative (Negative) Influenza Type B ([facility]) Negative (Negative) Influenza A & B Note See Note S. pyogenes GrpA [facility]OY Negative (Negative) Independent Interpretation I performed an independent interpretation of an: EKG (Normal sinus rhythm with a rate of [address] segment elevation or depressions.) and Plain X-Ray Interpretation: Agree with Radiology interpretation Radiology Impression Discussion of test interpretation with radiology: I have reviewed the radiologist's reading. Radiologist Impression: Findings: Subtle patchy density in the right lung base. No pleural effusion. No pneumothorax. Normal heart size and central pulmonary vascularity. No acute soft tissue or osseous abnormality. Impression: 1. Patchy density in the right lung base, nonspecific however may represent developing infiltrate when considering provided clinical history. This document has been electronically signed by: Vahe Amos MD on 02/15/2025 21:02:15 Discharge Plan Discharge Clinical Impression: Community acquired pneumonia Patient Disposition: Home, Self-Care Instructions: Community Acquired Pneumonia (ED) Additional Instructions: Your x-ray showed a possible pneumonia of the right lower lung. Given that you are having cough, congestion and chest tightness we will treat this is community-acquired pneumonia. You did have a similar finding on an abdominal CT scan in July of this year I do recommend a repeat x-ray in 6 weeks to determine if this is a chronic finding or a true acute pneumonia Prescriptions: New azithromycin 250 mg tablet See Rx Instructions .ROUTE .COMPLEX Qty: 6 0RF Rx Instructions: For 250 mg dose pack: take 500 mg today (day 1), then 250 mg for 4 days (days 2-5) amoxicillin-pot clavulanate 875-125 mg tablet 1 tab PO Q12H Qty: 14 0RF No Action azithromycin 250 mg tablet See Rx Instructions .ROUTE .COMPLEX Qty: 6 0RF Rx Instructions: For 250 mg dose pack: take 500 mg today (day 1), then 250 mg for 4 days (days 2-5) ibuprofen 600 mg tablet 600 mg PO Q6H PRN (Reason: pain) Qty: 30 0RF ondansetron 4 mg tablet,disintegrating 4 mg PO Q8H PRN (Reason: nausea and vomiting) Qty: 20 0RF amoxicillin-pot clavulanate 875-125 mg tablet 1 tab PO BID Qty: 14 0RF tamsulosin 0.4 mg capsule 0.4 mg PO DAILY 5 Days Qty: 5 0RF Stand Alone Forms: Work/School Release Interventions: ED Discharge Assessment Last Done: 02/15/25 22:35 Discharge Date/Time: 02/15/25 22:35 Print Language: Turkmen
[2025-02-15 20:05] LABS: IDNOW Serial# 08D9AD1C; Strep A Nucleic Acid Negative (Negative)
[2025-02-15 20:06] LABS: IDNOW Serial# 58CA691E; Influenza B2 Negative (Negative)
[2025-02-15 20:07] LABS: COVID-19 Test Negative (Negative); IDNOW Serial# 55D5AD1C
--- OUTSIDE RECORDS SUMMARY | 2025-02-15 20:29 | XMS_ITS | Encounter Summary ---
Author Organization [employer] Address [address] [place] [address] Care Team Providers Care Aircraft Dispatcher Name Role Phone Claudette Garcia MD Primary Care Provide r Reason for Visit * Reason Onset Date Comments Med Refill 05/06/2023 Encounter Details Date Type Department Care Team (Late st Contact Info) Description 05/06/[address] [facility] WALK-IN [facility]ENTER [address] [place], [place] [phone] Jesus Snow MD [address] [place], [place] [phone] Vitamin D deficiency Social History Tobacco Use [...] as of this encounter Plan of Treatment Upcoming Encounters Date Type Department Care Team (Late st Contact Info) Description 03/28/2025 10:15 AM EST Office Visit [facility] MEDICINE [address] [place] [address] Claudette Garcia MD [address] [place] [address] 04/05/2025 1:00 PM EST Office Visit [facility] OPTOMETRY [address] [place] [address] Tarka, Kira, OD [address] [place] [address] documented as of this encounter Visit Diagnoses Diagnosis Vitamin D deficiency documented in this encounter Additional Health Concerns Assessment Noted Time PHQ-9 Depression Total Score: 11 023 2:41 PM EDT documented as of this encounter Care Teams Aircraft Dispatcher Relationship Specialty Start Date End Date Claudette Garcia MD [address] [place] [id number] PCP - General Family Medicine 01/25/22 documented as of this encounter
--- OUTSIDE RECORDS SUMMARY | 2025-02-15 20:29 | XMS_ITS ---
Author Name [facility] Organization Unknown Care Team Organization Name Specialty Phone Email Start Date End Da te [facility] MACO MALONE Primary Care 02/26/2022 12/08/19 24
--- OUTSIDE RECORDS SUMMARY | 2025-02-15 20:29 | XMS_ITS | Encounter Summary ---
Author Organization [employer] Address [address] [place] [address] Care Team Providers Care Dewatering Filtering Supervisor Name Role Phone Claudette Garcia MD Primary Care Provide r Reason for Visit * Reason Onset Date Comments Med Refill 05/06/2023 Encounter Details Date Type Department Care Team (Late st Contact Info) Description 05/06/2023 Refill [facility] W[facility] [address] [place], [place] [phone] Wilman Boudreaux MD [address] [place], [place] [phone] COVID-19 Social History Tobacco Use Types Packs/Day [...] Description 03/28/2025 10:15 AM EST Office Visit [facility] MEDICINE [address] [place] [address] Claudette Garcia MD [address] [place] [address] 04/05/2025 1:00 PM EST Office Visit [facility] OPTOMETRY [address] [place] [address] TarKira michaud, OD [address] [place] [address] documented as of this encounter Visit Diagnoses Diagnosis COVID-19 documented in this encounter Additional Health Concerns Assessment Noted Time PHQ-9 Depression Total Score: 11 023 2:41 PM EDT documented as of this encounter Care Teams Dewatering Filtering Supervisor Relationship Specialty Start Date End Date Claudette Garcia MD [address] [place] [id number] PCP - General Family Medicine 01/25/22 documented as of this encounter
--- OUTSIDE RECORDS SUMMARY | 2025-02-15 20:29 | XMS_ITS | Encounter Summary ---
Author Organization [employer] Address [address] 7t [place] [address] Care Team Providers Care Certified Nurse Aide Name Role Phone Claudette Garcia MD Primary Care Provide r Reason for Visit * Reason Onset Date Comments Results 12/16/2022 PAP results Encounter Details Date Type Department Care Team (Late st Contact Info) Description 12/16/[address] [facility] MEDICINE [address] [place], [place] [phone] Claudette Garcia MD [address] [place], [place] [phone] Results (PAP results/) Social History Tobacco Use [...] documented in this encounter Plan of Treatment Upcoming Encounters Date Type Department Care Team (Late st Contact Info) Description 03/28/2025 10:15 AM EST Office Visit [facility] MEDICINE [address] [place] [address] Claudette Garcia MD [address] [place] [address] 04/05/2025 1:00 PM EST Office Visit [facility] OPTOMETRY [address] [place] [address] Kira Stevenson, OD [address] [place] [address] documented as of this encounter Visit Diagnoses Not on filedocumented in this encounter Additional Health Concerns Assessment Noted Time PHQ-9 Depression Total Score: 11 023 2:41 PM EDT documented as of this encounter Care Teams Certified Nurse Aide Relationship Specialty Start Date End Date Claudette Garcia MD [address] [place] [address] PCP - General Family Medicine 01/25/22 documented as of this encounter
--- OUTSIDE RECORDS SUMMARY | 2025-02-15 20:29 | XMS_ITS | Clinical Summary ---
Author Organization [facility] it[facility] Address [address] [place] [address] Care Team Providers Care Cad Application Support Specialist Name Role Phone Christi Mcdaniel MD Primary Care Provider Family History Medical History Relation Name Comments [...] 08/27/2021 08/28/2011, 12/15/2003, 01/25/2000, Additional history exists HIV Screening 03/24/2022 Hepatitis C Screening 03/24/2022 Social Influencers of Health Screening 03/24/2022 Depression Screening 04/21/2024 COVID-19 Vaccine ( season) 2024 Influenza Vaccine (#1) 2024 04/02/2013 RSV Immunization Adult Patients (1 - 1-dose 75+ series) 2073 HIB Vaccines Completed 01/25/2000, 05/22, 04/24/1999, Additional history exists Pneumococcal Vaccine: Pediatrics (0 to 5 Years) and At-Risk Patients (6 to 49 Years) Aged Out 01/25/2000 No longer eligible [...] age to complete this topic Meningococcal B Vaccine Aged Out No l onger eligible based on patient's age to complete this topic RSV Immunization Patients Under 20 months Aged Out No longer eligible based on patient's age to complete this topic Care Teams Cad Application Support Specialist Relationship Specialty Start Date End Date Christi Mcdaniel MD PCP - General 08/10/10
--- OUTSIDE RECORDS SUMMARY | 2025-02-15 20:29 | XMS_ITS | Encounter Summary ---
Author Organization [employer] Address [address] [place] [address] Care Team Providers Care Director Of Contracts Name Role Phone Claudette Garcia MD Primary Care Provide r Encounter Details Date Type Department Care Team ([facility] st Contact Info) Description 09/01/[address] [facility] WALK-IN CENTER [address] [place], [place] [phone] Jesus Snow MD [address] [place], [place] [phone] Social History Tobacco Use Types Packs/Day Years [...] Description 03/28/2025 10:15 AM EST Office Visit [facility] MEDICINE [address] [place] [address] Claudette Garcia MD [address] [place] [address] 04/05/2025 1:00 PM EST Office Visit [facility] OPTOMETRY [address] [place] [address] Tarka, Kira, OD [address] [place] [address] documented as of this encounter Visit Diagnoses Not on filedocumented in this encounter Additional Health Concerns Assessment Noted Time PHQ-9 Depression Total Score: 11 023 2:41 PM EDT documented as of this encounter Care Teams Director Of Contracts Relationship Specialty Start Date End Date Claudette Garcia MD [address] [place] [address] PCP - General Family Medicine 01/25/22 documented as of this encounter
--- OUTSIDE RECORDS SUMMARY | 2025-02-15 20:29 | XMS_ITS | Encounter Summary ---
Author Organization [employer] Address [address] [place] [address] Care Team Providers Care Transfer Station Operator Name Role Phone Claudette Garcia MD Primary Care Provide r Reason for Visit * Reason Onset Date Comments Med Refill 05/06/2023 Encounter Details Date Type Department Care Team (Late st Contact Info) Description 05/06/2023 Refill [facility] MEDICINE [address] [place], [place] [phone] Claudette Garcia MD [address] [place], [place] [phone] Pruritus of both hands Social History Tobacco [...] Description 03/28/2025 10:15 AM EST Office Visit [facility] MEDICINE [address] [place] [address] Claudette Garcia MD [address] [place] [address] 04/05/2025 1:00 PM EST Office Visit [facility] OPTOMETRY [address] [place] [address] TarKira michaud, OD [address] [place] [address] documented as of this encounter Visit Diagnoses Diagnosis Pruritus of both hands documented in this encounter Additional Health Concerns Assessment Noted Time PHQ-9 Depression Total Score: 11 023 2:41 PM EDT documented as of this encounter Care Teams Transfer Station Operator Relationship Specialty Start Date End Date Claudette Garcia MD [address] [place] [id number] PCP - General Family Medicine 01/25/22 documented as of this encounter
--- OUTSIDE RECORDS SUMMARY | 2025-02-15 20:29 | XMS_ITS | Encounter Summary ---
Author Organization [employer] Address [address] [place] [address] Care Team Providers Care Clerical And Administrative Workers Name Role Phone Claudette Garcia MD Primary Care Provide r Encounter Details Date Type Department Care Team ([facility] st Contact Info) Description 01/31/2025 Results Follow-Up [facility] MEDICINE [address] [place] [address] Diana Fuentes CNM [address] [place] [address] Chlamydia/N. Gonorrhoeae RNA, TMA, Vagina Social History Tobacco Use Types Packs/Day Years Used Date Smoking Tobacco: Never Passive Smoke Exposure: Never Smokeless Tobacco: Never Depression Answer Date Recorded Patient Health Questionnaire-9 Score 1 01/27/2025 Patient Health Questionnaire-9 Score 1 01/27/2025 Last PHQ-9: Questionnaire Data Not on file 1 Housing Stability Answer Date Recorded What is your housing situation today? I have indra shelton 01/27/[address] you li ve. Do you have problems with any of the following? None of the above 01/27/2025 Food Insecurity Answer Date Recorded Within the past 12 months, y ou worried that your food would run out before you got money to buy more: Sometimes True 2024 Within the past 12 months,th e food you bought just didn't last and you didn't have enough money to get more: Sometimes True 01/27/2025 Transportation Answer Date Recorded In the past 12 months, has l ack of transportation kept you from medical appts, meetings, work or from getting things needed for daily living? No 01/27/2025 Utilities Answer Date Recorded In the past 12 months, has t he electric, gas, oil or water company threatened to shut off services in your home? No 01/27/2025 Depression Answer Date Recorded Patient Health Questionnaire-2 Score 0 01/27/2025 Internet Access Answer Date Recorded Internet Access Q1 Yes 01/27/2025 Internet Access Q2 Not on file 01/27/2025 Comments No Sex and Gender Information Value [...] Description 03/28/2025 10:15 AM EST Office Visit [facility] MEDICINE [address] [place] [address] Claudette Garcia MD [address] [place] [address] 04/05/2025 1:00 PM EST Office Visit [facility] OPTOMETRY [address] [place] [address] Tarka Kira, OD [address] [place] [address] documented as of this encounter Visit Diagnoses Not on filedocumented in this encounter Additional Health Concerns Assessment Noted Time PHQ-9 Depression Total Score: 1 01/28/20 25 9:26 AM EDT documented as of this encounter Care Teams Clerical And Administrative Workers Relationship Specialty Start Date End Date Claudette Garcia MD [address] [place] [id number] PCP - General Family Medicine 01/25/22 documented as of this encounter
--- OUTSIDE RECORDS SUMMARY | 2025-02-15 20:29 | XMS_ITS | Clinical Summary ---
Author Organization [email or web address] Address [address] [facility] [address] [place] [address] Care Team Providers Care Boiler Tube Blower Name Role Phone Claudette Garcia MD Primary Care Provide r Allergies No known active allergies Medications famotidine (Pepcid) 20 MG tablet Take 1 tablet by mouth. 2 Active hydrocortisone 2.5 % creamIndications :Pruritus of [...] split. 30 tablet 5 06/24/19 26 Active albuterol 108 (90 Base) MCG/ACT inhaler Inhale 2 puffs every 6 (six) hours if needed for wheezing. 18 g 11 5 07/28/19 26 Active [facility] [place] 0.05 % nasal spray ADMINISTER 2 SPRAYS INTO EACH NOSTRIL EVERY 12 (TWELVE) HOURS IF NEEDED FOR CONGESTION FOR UP TO 2 DAYS. DO NOT USE FOR MORE THAN 3 DAYS. 30 mL 5 Active ibuprofen 600 MG tabletIndication s:Costochondriti s Take 1 tablet (600 mg) by mouth every 8 (eight) hours if needed for moderate pain or fever. 30 tablet 5 01/28/20 25 fluconazole (Diflucan) 150 MG tablet Take 1 tablet (150 mg) by mouth 1 (one) time for 1 dose. 1 tablet 5 01/28/20 25 Active Problems Problem Noted Date Diagnosed Date Pneumonia of right lower lobe due to infectious organism 07/30/2024 Assessment & Plan (07/30/2024 1:44 PM EDT): Add Albuterol and Afrin to her regimen. Afrin to help with nasal congestion, max use 3 days. Albuterol prn up to every 4-6 hours for wheezing Follow-up precautions for worsening shortness or breath or wheezing or fever Allergic rhinitis 03/22/2024 Assessment & Plan (03/22/2024 [...] adult 03/26/2022 Severe obesity (BMI >= 40) ([facility]) 03/26/2022 Mejm-kf-ctda spots 08/28/2011 Attention deficit disorder of childhood 08/28/19 12 Encounters Date Type Department Care Team Description 01/31/2025 Results Follow-Up [facility] [address] [place] [phone] Juan Sawant CNM Chlamydia/N. Gonorrhoeae RNA, TMA, Vagina 01/27/2025 9:30 AM EDT Office Visit [facility] [address] [place] [phone] Juan Sawant CNM Screening examination for venereal disease (Primary Dx); Vaginal odor; Checking subdermal contraceptive 01/27/2025 Travel 01/26/2025 Telephone [facility] [address] [place] [phone] Claudette Garcia MD chartprep 12/28/2024 1:40 PM EDT Office Visit [facility] [address] [place] [phone] Johanny Lopez MD Costochondritis (Primary Dx); Chest discomfort; Witnessed episode of apnea; Daytime somnolence; BMI 50.0-59.9, adult ([facility]) 12/28/2024 Travel 12/09/2024 Telephone [facility] [address] [place] [phone] Juan Sawant CNM No Show 12/08/[address] [phone] Juan Sawant CNM chart prep from Last 3 Months Immunizations Immunization Administration Dates Next Due DTaP 12/15/2003, 0,06/07/1999,1999,03/12/1999 DTaP / HiB / IPV 01/25/2000, 0,04/24/1999,1998 HPV, Quadrivalent 04/02/2013,01/10/2012,08/28/19 12 Hep B, Adolescent or Pediatric 4,06/07/1999,04/24/1999,1998 Hib (HbOC) 01/25/2000, 0,04/24/1999,1998 IPV 12/15/2003, 0,04/24/1999,1998 Influenza injectable quadriv alent preservative free 01/31/2023,01/22/2022 Influenza, IIV3, injectable 04/02/2013 Influenza, seasonal, injecta ble, preservative free 04/02/2013 MMR 12/15/2003,01/25/2000 Pfizer Covid-19 Vaccine 12+ Bivalent 01/22/2022 Pfizer Covid-19 Vaccine 12+ vasquez-sucrose (Sams Cap) 07/30/2021 Pneumococcal Conjugate PCV 7 01/25/2000 Tdap 08/28/2011 Varicella 08/28/2011,01/25/2000 Family History Medical History Relation Name Comments Breast cancer Neg Hx Colon cancer Neg Hx Ovarian cancer Neg Hx Social History Tobacco Use Types Packs/Day Years [...] Q2 Not on file 01/27/2025 Comments No Intention Date Recorded No desire to become (finding) 1 Sex and Gender Information Value Date Recorded Sex Assigned at Female 02/18/2022 10:40 AM EDT Legal Sex Female 10:40 AM EDT Gender Identity Female 02/18/2022 10:40 AM EDT Sexual Orientation Straight 08/01/2022 6: 41 PM EDT Last Filed Vital Signs Vital Sign Reading Time Taken Comments Blood Pressure 158/88 01/27/2025 9:24 AM EDT Pulse 95 01/27/2025 9:24 AM EDT Temperature 36.8 C (98.3 F) 01/27/2025 9:24 AM EDT Respiratory Rate 16 01/27/2025 9:24 AM EDT Oxygen Saturation 98% 01/27/2025 9:24 AM EDT Inhaled Oxygen Concentration - - Weight 161 kg (355 lb) 01/27/2025 9:24 AM EDT Height 175.3 cm (5' 9 ) 07/27/2024 11:31 AM EDT Body Mass Index 52.42 07/27/2024 11:31 AM EDT Plan of Treatment Upcoming Encounters Date Type Department Care Team (Late st Contact Info) Description 03/28/2025 10:15 AM EST Office Visit [facility] [address] [place] [phone] Claudette Garcia MD [address] [place] [address] 04/05/2025 1:00 PM EST Office Visit [facility] [address] [place], [place] [phone] Kira Stevenson, OD [address] [place] [address] Health Maintenance Due Date Last Done Comments DTaP/Tdap/Td Vaccines (7 - Td or Tdap) 08/27/2021 08/28/2011, 12/15/2003, 01/25/2000, Additional history exists COVID-19 Vaccine ( season) 2024 01/22/2022, 07/30/2021 Influenza Vaccine (#1) 2024 , 01/22/2022, 04/02/2013, Additional history exists Pap Smear 12/11/2025 12/11/2022 Alcohol/Substance Use Screening 01/27/2026 01/27/2025 Depression Screening 01/27/2026 01/27/2025, 01/28/20 25 Disability Screening 01/27/2026 01/27/2025 Family Planning (PISQ) 01/27/2026 01/27/2025 SDOH Screening 01/27/2026 01/27/2025 Tobacco Screening 01/27/2026 01/27/2025 Lipid Panel 12/03/2027 12/02/2022, 01/25/2022 Zoster Vaccines (1 of 2) 2048 RSV Patients and Patients Aged 60 years or older (1 - 1-dose 75+ series) 2073 HIB Vaccines Completed 01/25/2000, 09/1999, 06/07/1999, Additional history exists Pneumococcal Vaccine: Pediatrics (0 to 5 Years) and At-Risk Patients (6 to 49) Years Aged Out 01/25/2000 No longer eligible based on patient's age to complete this topic IPV Vaccines Completed 12/15/2003, 09/1999, 06/07/1999, Additional history exists Hepatitis B Vaccines Completed [...] Procedure Name Priority Date/Time Associated Diagnosis Comments COVID-19 ID NOW ([employer]) Routine 02/15/2025 7:45 PM EDT INFLUENZA A B2 ID NOW ([employer]) Routine 02/15/2025 7:45 PM EDT STREP A NUCLEIC ACID Routine 02/15/2025 7:45 PM EDT POCT WET MOUNT/EKATERINA Routine 01/27/2025 10 :19 AM EDT Vaginal odor TRICHOMONAS VAGINALIS RNA, QUALITATIVE, TMA Routine 01/27/2025 10:00 AM EDT Screening examination for venereal disease CHLAMYDIA/N. GONORRHOEAE RNA, TMA, UROGENITAL Routine 01/27/2025 10:00 AM EDT Screening examination for venereal disease AMB REFERRAL TO SLEEP MEDICINE Routine 01/03/2025 Witnessed episode of apnea Daytime somnolence BMI 50.0-59.9, adult ([facility]) ECG 12-LEAD Routine 12/28/2024 1:31 PM EDT Chest discomfort PAP SMEAR Routine 12/11/2022 LIPID PANEL, STANDARD Routine 12/02/2022 3:59 PM EDT Class 3 severe obesity due to excess calories without serious comorbidity with body mass index (BMI) of 50.0 to 59.9 in adult ([facility]) ZZZ HISTORICAL HEPATITIS C AB W/REFL TO HCV RNA, QN, PCR Routine 01/25/2022 10:13 AM EDT HIV 1/2 ANTIGEN/ANTIBODY, FOURTH GENERATION W/RFL Routine 01/25/2022 10:13 AM EDT from Last 3 Months or Most Recently Relevant to Health Maintenance Results * Influenza A B2 ID NOW ([facility]) (02/15/2025 7:45 PM EDT) IDNOW SERIAL# [id number] [facility] Influenza A Negative Negative [facility] Influenza B2 Negative Negative [facility] Influenza A B2 Note See Note [facility] Comment:The White ID NOW In fluenza A B2 test is used for thequalitative detection of influenza A and B from patientswith signs and symptoms of respiratory infection.Negative results do not preclude influenza virus infectionand should not be used as the sole basis for diagnosis,treatment or other patient management decisions.There is a risk of false negative results due to thepresence of variants in the viral targets of the assay, lowlevels of virus in the specimen and co- infection withRespiratory Syncytial Virus. 02/15/2025 7:45 PM EDT 02/15/2025 7:51 PM EDT us Generic External Data Provider LAB MICROBIOLOGY - GENERAL ORDERABLES Final Result [facility] [address] [place] [phone] * Strep A Nucleic Acid (02/15/2025 7:45 PM EDT) IDNOW SERIAL# [id number] [facility] Strep A Nucleic Acid Negative Negative [facility] Comment:All test results mus t be correlated with clinical findings.This test has not been evaluated for monitoring treatment ofinfection.Additional follow-up testing using the culture method isrequired if the result is negative and clinical symptomspersist, or in the event of an acute rheumatic feveroutbreak. 02/15/2025 7:45 PM EDT 02/15/2025 7:51 PM EDT us Generic External Data Provider LAB MICROBIOLOGY - GENERAL ORDERABLES Final Result Performing Organization Address City/[facility]/ZIP Co de Phone Number [facility] [address] [place] [address] [phone] * COVID-19 ID NOW (WHITE) (02/15/2025 7:45 PM EDT) IDNOW SERIAL# [id number] [facility] COVID-19 TEST Negative Negative [facility] COVID-19 NOTE See Note [facility] Comment: Results are for the identification of SARS-CoV2 RNA. TheSARS-CoV2 RNA is generally detectable in respiratory samplesduring the acute phase of infection. Positive results areindicative of the presence of SARS-CoV-2 RNA; clinicalcorrelation with patient history and other diagnosticinformation is necessary to determine patient infectionstatus. Positive results do not rule out bacterial infectionor co- infection with other viruses.Testing facilities within the [facility] and [facility] are required to report all positive results tothe appropriate public health authorities.Negative results should be treated as presumptive and, ifinconsistent with clinical signs and symptoms or necessaryfor patient management, should be tested with differentauthorized or cleared molecular tests. Negative results donot preclude SARS-CoV2 RNA infection and should not be usedas the sole basis for patient management decisions. Negativeresults should be considered in the context of a patient'srecent exposures, history and the presence of clinical signsand symptoms consistent with COVID-19.This test has been authorized by the FDA under an EmergencyUse Authorization (EUA) for use by authorized laboratories.Testing performed on the White ID NOW utilizing NAAT. 02/15/2025 7:45 PM EDT 02/15/2025 7:51 PM EDT us Generic External Data Provider LAB MOLECULAR MORALES GNOSTICS ORDERABLES Final Result [facility] [address] [place] [phone] * POCT fern test, vaginal fluid manually resulted (01/27/2025 10:19 AM EDT) Pathologist [facility] EKATERINA Prep Positive Comment:pH 4.5, neg whiff, n eg clue, neg trich, neg wbc, pos hyphae Vaginal Fluid Vaginal structure / Unknown 01/27/2025 10:19 AM EDT Impressions Juan Sawant CNM - 01/27/2025 10:19 AM EDT yeast Juan Sawant CNM POINT OF CARE TEST ENTER/ EDIT ORDERABLES Final Result * Trichomonas RNA (Urine/Vaginal) (01/27/2025 10:00 AM EDT) Pathologist [facility] Trichomas vaginalis RNA, QL, TMA NOT DETECTED NOT DETECTED [facility] Comment:For additional infor adeola, please refer tohttp://education.Auto I.[employer]./faq/Trichomonastma(This link is being provided for informational/educational purposes only.)THIS TEST WAS PERFORMED AT:[facility] [place] [phone]-PIERRE GIL MD Swab 01/27/2025 10:0 0 AM EDT 01/27/2025 6:11 PM EDT Juan LESTER LAB BODY FLUIDS AND STOOL S ORDERABLES Final Result [facility] [address] [place] [phone] * Chlamydia/N. Gonorrhoeae RNA, TMA, Vagina (01/27/2025 10:00 AM EDT) Pathologist [facility] CT PCR NOT DETECTED Not Detect. [facility] Comment:A not detected test result does not exclude the possibilityof infection because test results can be affected byimproper specimen collection, concurrent antibiotic therapy,or the number of organisms in the specimen which may bebelow the sensitivity of the test. As with many diagnostictests, results from the Xpert CT/NG assay should beinterpreted in conjunction with other laboratory andclinical data available to the clinician.Xpert CT/NG performance has not been evaluated in patientsless than 14 years of age. The assay should not be used forthe evaluationof suspected sexual abuse or for other medico-legalindications. Additional testing is recommended in anycircumstance when false positive or false negative resultscould lead to adverse medical, social or psychologicalconsequences. NG PCR NOT DETECTED Not Detect. [facility] Comment:A not detected test result does not exclude the possibilityof infection because test results can be affected byimproper specimen collection, concurrent antibiotic therapy,or the number of organisms in the specimen which may bebelow the sensitivity of the test. As with many diagnostictests, results from the Xpert CT/NG assay should beinterpreted in conjunction with other laboratory andclinical data available to the clinician.Xpert CT/NG performance has not been evaluated in patientsless than 14 years of age. The assay should not be used forthe evaluationof suspected sexual abuse or for other medico-legalindications. Additional testing is recommended in anycircumstance when false positive or false negative resultscould lead to adverse medical, social or psychologicalconsequences. Swab Vaginal structure / Unknown 01/27/2025 10:00 AM EDT 01/27/2025 6:11 PM EDT Juan LESTER LAB MICROBIOLOGY - GENERA L ORDERABLES Final Result [facility] [address] [place] [address] [phone] * Referral to Sleep Medicine (01/03/2025) us Johanny Lopez MD OUTPATIENT REFERRAL ORDERA BLES Final Result * ECG 12 lead (12/28/2024 1:31 PM EDT) Narrative Johanny Lopez MD - 12/28/2024 1:31 PM EDT NSR 82 bpm No evidence of ischemia or past infarction us Johanny Lopez MD ECG ORDERABLES Final Resu lt * Pap Smear (12/11/2022) 12/11/2022 12/13/2022 8:5 0 AM EDT [facility] - 12/28/2022 2:13 PM EDT ----- ------- Name: BRENDA PEREZ Age/Sex: 22/F : 2000 Unit#: [id number] Attend Dr: JUAN SAWANT CNM Re12/12/22 Status: [facility] ----- ------- SPEC : [id number] RECD: 12/13/2250 STATUS: KELLY JAIME NUM: [id number] BERYL: 12/11/22- SUBM DR: JUAN SAWANT CNM ENTERED: 12/13/22-1000 SP TYPE: Pap Smr OT : ORDERED: Pap Smear Interpretation Satisfactory for evaluation. Negative for intraepithelial lesion or malignancy. Clinical Information LMP: Unknown date Previous PAP test: Unknown date/findings Material Received ThinPrep-Vaginal/Cervical ----- ------- Signed (signature on file) Laura Tucker 12/28/22 1413 ----- ------- END OF REPORT Juan Sawant [facility] CYTOLOGY ORDERABLES F inal Result [facility] [address] [place] [phone] * Lipid Panel, Standard (12/02/2022 3:59 PM EDT) Triglycerides 151 mg/dL [facility] Comment:Desirable Triglyceri de: less than 150 mg/dLBorderline High Triglyceride 150-199 mg/dLHigh Triglyceride: 200-499 mg/dLVery High Triglyceride: greater than or equal to 5OO mg/dL Cholesterol 147 mg/dL [facility] Comment:Desirable Cholestero l: less than 200 mg/dLBorderline High Cholesterol: 200-239 mg/dLHigh Cholesterol: greater than 239 mg/dL LDL Cholesterol Calculated 80 mg/dl [facility] Comment:Desirable LDL: less than 100 mg/dLNear Optimal/Above Optimal LDL: 110- 129 mg/dLBorderline High LDL: 130-159 mg/dLHigh LDL: 160-189 mg/dLVery High LDL: greater than or equal to 190 mg/dL HDL Cholesterol 37 mg/dL [facility] Comment:Desirable HDL: great er than 40 mg/dL Note: This HDL assay may give artificially low results in patients with liver disease. Blood Venous blood specimen / Unknown 12/02/2022 3:59 PM EDT 12/02/2022 5:47 PM EDT Claudette Rainey MD LAB BLOOD ORDERABLES Final Result Performing Organization Address City/[facility]/ZIP Co de Phone Number [facility] [address] [place] [phone] * HEPATITIS C AB W/REFL TO HCV RNA, QN, PCR (01/25/2022 10:13 AM EDT) HEPATITIS C ANTIBODY NON-REACTI VE NON-REACT RYAN [facility] INDEX 0.12 <1.00 [facility] Comment: HCV antibody was non-reactive. There is no laboratory evidence of HCV infection. In most cases, no further action is required. However, if recent HCV exposure is suspected, a test for HCV RNA (test code 64073) is suggested. For additional information please refer to http://education.Auto I.D./faq/CYP67y3 (This link is being provided for informational/ educational purposes only.) 01/25/2022 10:1 3 AM EDT Claudette Rainey MD HISTORICAL/NON ORDERA BLE LABS Final Result Performing Organization Address City/[facility] Co de Phone Number [facility] * HIV 1/2 ANTIGEN/ANTIBODY,FOURTH GENERATION W/RFL (01/25/2022 10:13 AM EDT) HIV-1/2 ANTIGEN AND ANTIBODIES, 4TH GENERATION W/ REFLEX NON-REACT RYAN NON-REACT RYAN [facility] Comment: HIV-1 antigen and HIV-1/HIV-2 antibodies were not detected. There is no laboratory evidence of HIV infection. PLEASE NOTE: This information has been disclosed to you from records whose confidentiality may be protected by state law. If your state requires such protection, then the state law prohibits you from making any further disclosure of the information without the specific written consent of the person to whom it pertains, or as otherwise permitted by law. A general authorization for the release of medical or other information is NOT sufficient for this purpose. For additional information please refer to http://education.Auto I.D./faq/JMU568 (This link is being provided for informational/ educational purposes only.) The performance of this assay has not been clinically validated in patients less than 2 years old. 01/25/2022 10:1 3 AM EDT us Claudette Rainey MD LAB BLOOD ORDERABLES Final Result [facility] from Last 3 Months or Most Recently Relevant to Health Maintenance Insurance [facility] C3 Care Teams Boiler Tube Blower Relationship Specialty Start Date End Date Claudette Garcia MD [address] [place] [phone] PCP - General Family Medicine 01/25/22
[2025-02-15 22:35] VITALS: BP 138/63; PULSE 88; RESP 18; TEMP 36.8; O2SAT 96
== END 2025-02-15 22:35 | disposition home or self-care (01) ==
PROVIDERS: Physician Assistant; Emergency Provider Emergency Medicine; PCP Internal Medicine
DX: J18.9 Pneumonia, unspecified organism (principal); R05.9 Cough, unspecified; R07.9 Chest pain, unspecified; Z03.818 Encounter for observation for suspected exposure to other biological agents ruled out
CPT/HCPCS: 71045; 87502; 87635; 87651; 93005; 99283

== ENCOUNTER → 2025-02-15 19:16 | Outpatient (BNV) | payer MEDICAID, SELFPAY | PROVIDERS: Emergency Provider Emergency Medicine; PCP Internal Medicine; Visit Provider Internal Medicine | DX: R07.9 Chest pain, unspecified (principal) | CPT/HCPCS: 93010 ==

== ENCOUNTER → 2025-02-15 19:26 | Outpatient (BNV) | payer MEDICAID, SELFPAY | PROVIDERS: PCP Internal Medicine; Visit Provider Radiology Diagnostic Radiology | DX: R91.8 Other nonspecific abnormal finding of lung field (principal) | CPT/HCPCS: 71045 ==

== ENCOUNTER 2025-03-02 09:53 | Outpatient (REF) | payer MEDICAID, SELFPAY ==
--- OUTSIDE RECORDS SUMMARY | 2025-03-02 09:40 | XMS_ITS | Encounter Summary ---
Author Organization [employer] Address [address] [facility] [address] [place] [address] Care Team Providers Care Legal Transcriber Name Role Phone Claudette Garcia MD Primary Care Provide r Reason for Referral * Neurology (Routine) - Authorized Specialty Diagnoses / Procedures Referred By Contac t Referred To Contact Diagnoses Paresthesia of foot, bilateral Paresthesia of upper limb Procedures Nerve conduction test NameJose MD [address] [place] [address] Phone: tel: fax: [address] Phone: tel: fax: Referral ID Status Reason Start Date Expiration Date V isits Requested Visits Authorized [id number] Authorized 03/02/2025 03/02/2026 1 1 Reason for Visit * Reason Comments Numbness Encounter Details Date Type Department Care Team (Late st Contact Info) Description 03/02/2025 9:40 AM EST Office Visit [facility]IN [facility] [address] [place] [address] [phone] Jose Whalen MD [address] [place] [phone] Paresthesia of foot, bilateral (Primary Dx); Paresthesia [...] 03/28/2025 10:15 AM Claudette Rainey MD MEDICINE [facility] 04/05/2025 1:00 PM Kira Stevenson OD VISION [facility] documented in this encounter Plan of Treatment Upcoming Encounters Date Type Department Care Team (Late st Contact Info) Description 03/28/2025 10:15 AM EST Office Visit [facility] MEDICINE [address] [place] [address] Claudette Garcia MD [address] [place] [address] 04/05/2025 1:00 PM EST Office Visit [facility] OPTOMETRY [address] [place] [address] Kira Stevenson OD [address] [place] [address] Scheduled Orders Name Type Priority Associated Diagnoses Orde r Schedule Basic Metabolic Panel Lab Routine Paresthesia of foot, bilateral Paresthesia of upper limb Expected: 03/02/2025 (Approximate), Expires: 03/02/2026 Hemoglobin A1c Lab Routine Paresthesia of foot, bilateral Paresthesia of upper limb Expected: 03/02/2025 (Approximate), Expires: 03/02/2026 Vitamin B12/Folate, Serum Panel Lab Routine Paresthesia of foot, bilateral Paresthesia of upper limb Expected: 03/02/2025, Expires: 03/02/2026 TSH W/Reflex to FT4 Lab Routine Paresthesia of foot, bilateral Paresthesia of upper limb Expected: 03/02/2025 (Approximate), Expires: 03/02/2026 Nerve conduction test Neurology Routine Paresthesia of foot, bilateral Paresthesia of upper limb Expected: 03/02/2025 (Approximate), Expires: 03/02/2026 documented as of this encounter Visit Diagnoses Diagnosis Paresthesia of foot, bilateral- Primary Paresthesia of upper limb documented in this encounter Additional Health Concerns Assessment Noted Time PHQ-9 Depression Total Score: 1 01/28/20 25 9:26 AM EDT documented as of this encounter Care Teams Legal Transcriber Relationship Specialty Start Date End Date Claudette Garcia MD [address] [place] [address] PCP - General Family Medicine 01/25/22 documented as of this encounter
--- OUTSIDE RECORDS SUMMARY | 2025-03-02 11:30 | XMS_ITS | Clinical Summary ---
Author Organization [facility] ity Address [address] [place] [address] Care Team Providers Care Paper Bag Press Operator Name Role Phone Christi Mcdaniel MD Primary [...] age to complete this topic Care Teams Paper Bag Press Operator Relationship Specialty Start Date End Date Christi Mcdaniel MD PCP - General 08/10/10
--- OUTSIDE RECORDS SUMMARY | 2025-03-02 11:30 | XMS_ITS | Encounter Summary ---
Author Organization [employer] Address [address] [facility] 7t [place] [address] Care Team Providers Care Attendant [facility] Name Role Phone Claudette Garcia MD Primary Care Provide r Encounter Details Date Type Department Care Team (Latest Contact Info) Description 03/02/2025 Travel Social History Tobacco Use Types Packs/Day Years [...] 03/28/2025 10:15 AM EST Office Visit [facility] MEDICINE [address] [place] [address] Claudette Garcia MD [address] [place] [address] 04/05/2025 1:00 PM EST Office Visit [facility] OPTOMETRY [address] [place] [address] Tarka, Kira, OD [address] [place] [address] documented as of this encounter Visit Diagnoses Not on filedocumented in this encounter Additional Health Concerns Assessment Noted Time PHQ-9 Depression Total Score: 1 01/28/20 25 9:26 AM EDT documented as of this encounter Care Teams Attendant [facility] Relationship Specialty Start Date End Date Claudette Garcia MD [address] [place] [phone] PCP - General Family Medicine 01/25/22 documented as of this encounter
--- OUTSIDE RECORDS SUMMARY | 2025-03-02 11:30 | XMS_ITS | Clinical Summary ---
Author Organization [employer] Address [address] [facility] 7t [place] [address] Care Team Providers Care Heating Fixture Tender Name Role Phone Claudette Garcia MD Primary Care Provide r Allergies No known active allergies Medications famotidine (Pepcid) 20 MG tablet Take 1 tablet by mouth. 01/24/20 22 Active hydrocortisone 2.5 % creamIndicatio ns:Pruritus of both hands Apply topically 2 times daily. 28 g 12/03/19 23 Active cetirizine (ZyrTEC) 10 MG tablet TAKE 1 TABLET BY MOUTH EVERY DAY 90 tablet 05/06/19 24 Active acetaminophen (Tylenol) 500 MG tablet Take 2 tablets (1,000 mg) by mouth every 6 (six) hours if needed for moderate pain or fever. 40 tablet 11/19/19 24 Active ibuprofen 400 MG tabletIndicati ons:COVID-19 TAKE 1 TABLET BY MOUTH EVERY 6 HOURS IF NEEDED FOR FEVER OR MODERATE PAIN 30 tablet 11/19/19 24 Active albuterol 108 (90 Base) MCG/ACT inhaler Inhale 2 puffs every 6 (six) hours if needed for wheezing. 18 g 11 07/28/19 25 026 Active cholecalcifero l (Vitamin D-3) 25 MCG (1000 UT) capsuleIndicat ions:Vitamin D deficiency TAKE 1 CAPSULE BY MOUTH EVERY DAY 90 capsule 02/19/20 25 Active diphenhydrAMIN E (BENADryl) 25 MG capsule TAKE 1 TO 2 CAPSULES EVERY 6 HOURS IF NEEDED FOR ITCHING OR RASH 30 capsule 02/19/20 25 Active hydrocortisone 2.5 % cream APPLY TOPICALLY TWICE A DAY 15 g 1 02/19/20 25 Active cetirizine (ZyrTEC) 10 MG tabletIndicati ons:Allergic rhinitis, unspecified seasonality, unspecified trigger Take 1 tablet (10 mg) by mouth at bedtime. 90 tablet 02/19/20 25 Active fluticasone (Flonase) 50 MCG/ACT nasal sprayIndicatio ns:Allergic rhinitis, unspecified seasonality, unspecified trigger Administer 1 spray into each nostril Once per day. Shake gently. Before first use, prime pump. After use, clean tip and replace cap. 16 g 2 02/19/20 25 026 Active oxymetazoline ([facility] Nasal Roggen) 0.05 % nasal spray Administer 2 sprays into each nostril 2 times daily. Do not use for more than 3 days.ADMINIST ER 2 SPRAYS INTO EACH NOSTRIL EVERY 12 (TWELVE) HOURS IF NEEDED FOR CONGESTION FOR UP TO 2 DAYS. DO NOT USE FOR MORE THAN 3 DAYS. 30 mL 02/19/20 25 Active omeprazole OTC (PriLOSEC OTC) 20 MG EC tablet Take 1 tablet (20 mg) by mouth before breakfast. Do not crush, chew, or split. 90 tablet 02/19/20 25 026 Active naproxen (Naprosyn) 500 MG tablet TAKE 1 TABLET BY MOUTH WITH BREAKFAST AND EVENING MEAL 10 tablet 11 02/22/20 25 Active cholecalcifero l (Vitamin D-3) 25 MCG (1000 UT) capsuleIndicat ions:Vitamin D deficiency TAKE 1 CAPSULE BY MOUTH EVERY DAY 90 capsule 05/06/19 24 025 Discontinued(Re order (will not trigger notification to Pharmacy)) diphenhydrAMIN E (BENADryl) 25 MG capsule TAKE 1 TO 2 CAPSULES EVERY 6 HOURS IF NEEDED FOR ITCHING OR RASH 30 capsule 05/06/19 24 025 Discontinued(Re order (will not trigger notification to Pharmacy)) hydrocortisone 2.5 % cream APPLY TOPICALLY TWICE A DAY 15 g 1 05/06/19 24 025 Discontinued(Re order (will not trigger notification to Pharmacy)) naproxen (Naprosyn) 500 MG tablet Take 1 tablet (500 mg) by mouth with breakfast and with evening meal. 10 tablet 11 08/29/19 24 025 Discontinued(Re order (will not trigger notification to Pharmacy)) fluticasone (Flonase) 50 MCG/ACT nasal sprayIndicatio ns:Allergic rhinitis, unspecified seasonality, unspecified trigger Administer 1 spray into each nostril Once per day. Shake gently. Before first use, prime pump. After use, clean tip and replace cap. 16 g 2 03/22/20 24 025 Discontinued(Re order (will not trigger notification to Pharmacy)) cetirizine (ZyrTEC) 10 MG tabletIndicati ons:Allergic rhinitis, unspecified seasonality, unspecified trigger TAKE 1 TABLET BY MOUTH EVERYDAY AT BEDTIME 90 tablet 03/23/20 025 Discontinued(Re order (will not trigger notification to Pharmacy)) omeprazole OTC (PriLOSEC OTC) 20 MG EC tablet Take 1 tablet (20 mg) by mouth before breakfast. Do not crush, chew, or split. 30 tablet 06/24/19 25 025 Discontinued(Re order (will not trigger notification to Pharmacy)) [facility]S Nasal Roggen 0.05 % nasal spray ADMINISTER 2 SPRAYS INTO EACH NOSTRIL EVERY 12 (TWELVE) HOURS IF NEEDED FOR CONGESTION FOR UP TO 2 DAYS. DO NOT USE FOR MORE THAN 3 DAYS. 30 mL 07/29/19 025 Discontinued(Re order (will not trigger notification to Pharmacy)) Active Problems Problem Noted Date Diagnosed Date [...] adult 03/26/2022 Severe obesity (BMI >= 40) (CMS/[facility]) 03/26/2022 [id number] spots 08/28/2011 Attention deficit disorder of childhood 08/28/19 12 Encounters Date Type Department Care Team Description 03/02/2025 9:40 AM EST Office Visit [facility] [address] [place] [phone] Name, MD Jose Paresthesia of foot, bilateral (Primary Dx); Paresthesia of upper limb 03/02/2025 Travel 02/20/2025 Refill [facility] [address] [place] [phone] Jesus Snow MD COVID-19 02/18/2025 Refill [facility] [address] [place] [address] Molly Bryant MD 02/18/2025 Refill [facility] [address] [place] [address] Jesus Snow MD COVID-19 02/18/2025 Refill [facility] [address] [place] [phone] Claudette Garcia MD Allergic rhinitis, unspecified seasonality, unspecified trigger 02/18/2025 Refill [facility] [address] [place] [address] Claudette Garcia MD Vitamin D deficiency; Allergic rhinitis, unspecified seasonality, unspecified trigger 02/15/2025 Orders Only [facility] External Provider, [facility] 01/31/2025 [place] [address] Juan Sawant CNM Chlamydia/N. Gonorrhoeae RNA, TMA, Vagina 01/27/2025 9:30 AM EDT Office Visit [address] [address] Juan Sawant CNM Screening examination for venereal disease (Primary Dx); Vaginal odor; Checking subdermal contraceptive 01/27/2025 Travel 01/26/2025 Telephone [facility] [address] [place] [phone] Claudette Garcia MD chartprep 12/28/2024 1:40 PM EDT Office Visit [facility] [address] [place] [address] Johanny Lopze MD Costochondritis (Primary Dx); Chest discomfort; Witnessed episode of apnea; Daytime somnolence; BMI 50.0-59.9, adult ([facility]) 12/28/2024 Travel 12/09/[address] [address] Juan Sawant CNM No Show 12/08/[address] [address] Juan Sawant CNM chart prep from Last [...] Mass Index 51.77 03/02/2025 9:31 AM EST Plan of Treatment Upcoming Encounters Date Type Department Care Team (Late st Contact Info) Description 03/28/2025 10:15 AM EST Office Visit [facility] [address] [place] [address] Claudette Garcia MD [address] [place] [address] 04/05/2025 1:00 PM EST Office Visit [facility] [address] [place] [address] Kira Stevenson, OD [address] [place] [address] Health Maintenance Due Date Last Done Comments Meningococcal Vaccine (1 - Risk 2-dose series) 2000 Meningococcal B Vaccine (1 of 4 - Increased Risk) 2008 DTaP/Tdap/Td Vaccines (7 - Td or Tdap) 08/27/2021 08/28/2011, 12/15/2003, 01/25/2000, Additional history exists COVID-19 Vaccine (3 - season) 2024 01/22/2022, 07/30/2021 Influenza Vaccine (#1) 2024 , 01/22/2022, 04/02/2013, Additional history exists Pap Smear 12/11/2025 12/11/2022 Alcohol/Substance Use Screening 01/27/2026 01/27/2025 Depression Screening 01/27/2026 01/27/2025, 01/28/20 Disability Screening 01/27/2026 01/27/2025 Family Planning (PISQ) 01/27/2026 01/27/2025 SDOH Screening 01/27/2026 01/27/2025 Tobacco Screening 03/02/2026 03/02/2025 Lipid Panel 12/03/2027 12/02/2022, 01/25/2022 Zoster Vaccines [...] Procedure Name Priority Date/Time Associated Diagnosis Comments XR CHEST 1 VIEW Routine 02/15/2025 9:02 PM EDT COVID-19 ID NOW (WHITE) Routine 02/15/2025 7:45 PM EDT INFLUENZA A B2 ID NOW (WHITE) Routine 02/15/2025 7:45 PM EDT STREP A [...] of apnea Daytime somnolence BMI 50.0-59.9, adult ([facility]) ECG 12-LEAD Routine 12/28/2024 1:31 PM EDT Chest discomfort PAP SMEAR Routine 12/11/2022 LIPID PANEL, STANDARD Routine 12/02/2022 3:59 PM EDT Class 3 severe obesity due to excess calories without serious comorbidity with body mass index (BMI) of 50.0 to 59.9 in adult ([facility]) ZZZ HISTORICAL HEPATITIS C AB W/REFL TO HCV RNA, QN, PCR Routine 01/25/2022 10:13 AM EDT HIV 1/2 ANTIGEN/ANTIBODY, FOURTH GENERATION W/RFL Routine 01/25/2022 10:13 AM EDT from Last 3 Months or Most Recently Relevant to Health Maintenance Results * XR Chest 1 View (02/15/2025 9:02 PM EDT) Anatomical Region Laterality Modality Chest Radiographic Makenna ging 02/15/2025 9:02 PM EDT Narrative 02/15/2025 9:03 PM EDT [address] [address] XRay Report Signed Patient: Brenda Beasley MR#: [id number] : 2000 Acct:[id number] Age/Sex: 24 / F ADM Date: 02/15/25 Loc: HO.ED Attending Dr: Ordering Physician: Chris Medina Date of Service: 02/15/25 Procedure(s): XR chest 1V Accession Number(s): [id number] cc: Chris Medina; Claudette Garcia MD Reason for Exam: coughig. Pneumonia? CLINICAL HISTORY: coughig. Pneumonia? 1 view chest x-ray Comparison: None provided Findings: Subtle patchy density in the right lung base. No pleural effusion. No pneumothorax. Normal heart size and central pulmonary vascularity. No acute soft tissue or osseous abnormality. Impression: 1. Patchy density in the right lung base, nonspecific however may represent developing infiltrate when considering provided clinical history. This document has been electronically signed by: Vahe Amos MD on 02/15/2025 21:02:15 Dictated By: Vahe Amos MD Signed By: <Electronically signed by Vahe Amos MD in OV> 02/15/252102 DD/ 01 TD/TT: 02/15/252101 Web Marketing Manager: Procedure Note Donotuseinterpreter, Image - 02/15/2025 [place] [address] XRay Report Signed Patient: Brenda Beasley#: M [id number] : 2000Acct:[id number] Age/Sex: 24 / FADM Date: 02/15/25 Loc: .ED Attending Dr: Ordering Physician: Chris Medina Date of Service: 02/15/25 Procedure(s): XR chest 1V Accession Number(s): [id number] cc: Chris Medina; Claudette Garcia MD Reason for Exam: coughig. Pneumonia? CLINICAL HISTORY: coughig. Pneumonia? 1 view chest x-ray Comparison: None provided Findings: Subtle patchy density in the right lung base. No pleural effusion. No pneumothorax. Normal heart size and central pulmonary vascularity. No acute soft tissue or osseous abnormality. Impression: 1. Patchy density in the right lung base, nonspecific however may represent developing infiltrate when considering provided clinicalhistory. This document has been electronically signed by: Vahe Amos MD on 02/15/2025 21:02:15 Dictated By: Vahe Amos MD Signed By: <Electronically signed by Vahe Amos MD in OV> 02/15/252102 DD/ 01 TD/TT: 02/15/252101 Web Marketing Manager: [facility] External Provider IMG XR PROCEDURES Final Result * Influenza A B2 ID NOW (White) (02/15/2025 7:45 PM EDT) IDNOW SERIAL# [id number] [facility] Influenza A Negative Negative [facility] Influenza B2 Negative Negative [facility] Influenza A B2 Note See Note [facility] Comment:The White ID NOW In [...] 7:45 PM EDT 02/15/2025 7:51 PM EDT Generic External Data Provider LAB MICROBIOLOGY - GENERAL ORDERABLES Final Result Performing Organization Address City/State/[facility] Co de Phone Number [facility] [address] [place] [phone] * Strep A Nucleic Acid (02/15/2025 7:45 PM EDT) IDNOW SERIAL# [id number] [facility] Strep A Nucleic Acid Negative Negative [facility] Comment:All test results mus t [...] GENERAL ORDERABLES Final Result Performing Organization Address City/[facility]/ZIP Co de Phone Number [facility] [address] [place] [address] [phone] * COVID-19 ID NOW (WHITE) (02/15/2025 7:45 PM EDT) IDNOW SERIAL# [id number] [facility] COVID-19 TEST Negative Negative [facility] COVID-19 NOTE See Note [facility] Comment: Results are for the identification of SARS-CoV2 RNA. TheSARS-CoV2 RNA is generally detectable in respiratory samplesduring the acute phase of infection. Positive results areindicative of the presence of SARS-CoV-2 RNA; clinicalcorrelation with patient history and other diagnosticinformation is necessary to determine patient infectionstatus. Positive results do not rule out bacterial infectionor co- infection with other viruses.Testing facilities within the [facility] and [facility] are required to report all [...] LAB MOLECULAR MORALES GNOSTICS ORDERABLES Final Result Performing Organization Address City/[facility]/ZIP Co de Phone Number [facility] [address] [place] [address] [phone] * POCT fern test, vaginal fluid manually resulted (01/27/2025 10:19 AM EDT) [facility] Prep Positive Comment:pH 4.5, neg whiff, n eg clue, neg trich, neg wbc, pos hyphae Vaginal Fluid Vaginal structure / Unknown 01/27/2025 10:19 AM EDT Impressions Juan Sawant CNM - 01/27/2025 10:19 AM EDT yeast Juan Sawant CNM POINT OF CARE TEST ENTER/ EDIT ORDERABLES Final Result * Trichomonas RNA (Urine/Vaginal) (01/27/2025 10:00 AM EDT) Pathologist [facility] Trichomas vaginalis RNA, QL, TMA NOT DETECTED NOT DETECTED [facility] Comment:For additional infor mation, please refer tohttp://education.[employer]/faq/Trichomonastma(This link is being provided for informational/educational purposes only.)THIS TEST WAS PERFORMED AT:[facility] [place] [id number]-PIERRE GIL MD Swab 01/27/2025 10:0 0 AM EDT 01/27/2025 6:11 PM EDT Juan LESTER LAB BODY FLUIDS AND STOOL S ORDERABLES Final Result [facility] [address] [place] [address] [phone] * Chlamydia/N. Gonorrhoeae RNA, TMA, Vagina (01/27/2025 10:00 AM EDT) Pathologist [facility] CT PCR NOT DETECTED Not Detect. [facility] Comment:A not detected test result [...] psychologicalconsequences. NG PCR NOT DETECTED Not Detect. [facility] Comment:A not detected test result [...] 10:00 AM EDT 01/27/2025 6:11 PM EDT us Juan LESTER LAB MICROBIOLOGY - GENERA L ORDERABLES Final Result [facility] [address] [place] [address] [phone] * Referral to Sleep [...] (12/11/2022) 12/11/2022 12/13/2022 8:5 0 AM EDT [facility] - 12/28/2022 2:13 PM EDT ----- ------- Name: BRENDA BEASLEY Age/Sex: 22/F : 2000 Unit#: [id number] Attend Dr: JUAN SAWANT CNM Re12/12/22 Status: [facility] Disch: ----- ------- SPEC : [id number] RECD: 12/13/22-50 STATUS: KELLY REJoshua NUM: [id number] BERYL: 12/11/22- SUBM DR: JUAN SAWANT CNM ENTERED: 12/13/22-1001 SP TYPE: Pap Smr OT DR: ORDERED: Pap Smear Interpretation Satisfactory for evaluation. Negative for intraepithelial lesion or malignancy. Clinical Information LMP: Unknown date Previous PAP test: Unknown date/findings Material Received ThinPrep-Vaginal/Cervical ----- ------- Signed (signature on file) Laura Tucker 12/28/22 1413 ----- ------- END OF REPORT Juan Sawant [facility] LAB CYTOLOGY ORDERABLES F inal Result [facility] [address] [place] [phone] * Lipid Panel, Standard (12/02/2022 3:59 PM EDT) Triglycerides 151 mg/dL [facility] Comment:Desirable Triglyceri de: less than 150 mg/dLBorderline High Triglyceride 150-199 mg/dLHigh Triglyceride: 200-499 mg/dLVery High Triglyceride: greater than or equal to 5OO mg/dL Cholesterol 147 mg/dL [facility] Comment:Desirable Cholestero l: less than 200 mg/dLBorderline High Cholesterol: 200-239 mg/dLHigh Cholesterol: greater than 239 mg/dL LDL Cholesterol Calculated 80 mg/dl [facility] Comment:Desirable LDL: less than 100 mg/dLNear Optimal/Above Optimal LDL: 110- 129 mg/dLBorderline High LDL: 130-159 mg/dLHigh LDL: 160-189 mg/dLVery High LDL: greater than or equal to 190 mg/dL HDL Cholesterol 37 mg/dL [facility] Comment:Desirable HDL: great er than 40 mg/dL Note: This HDL assay may give artificially low results in patients with liver disease. Blood Venous blood specimen / Unknown 12/02/2022 3:59 PM EDT 12/02/2022 5:47 PM EDT Caludette Rainey MD LAB BLOOD ORDERABLES Final Result Performing Organization Address City/[facility]/ZIP Co de Phone Number [facility] [address] [place] [phone] * HEPATITIS C AB W/REFL TO [...] a test for HCV RNA (test code 59832) is suggested. For additional information please refer to http://education.[employer]/faq/QPP87b4 (This link is being provided for informational/ educational purposes only.) 01/25/2022 10:1 3 AM EDT Claudette Rainey MD HISTORICAL/NON ORDERA BLE LABS Final Result Performing Organization Address City/[facility] Co de Phone Number [facility] [...] purpose. For additional information please refer to http://education.[employer]/faq/WXW473 (This link is being provided for informational/ educational purposes only.) The performance of this assay has not been clinically validated in patients less than 2 years old. 01/25/2022 10:1 3 AM EDT Claudette Rainey MD LAB BLOOD ORDERABLES Final Result [facility] from Last 3 Months or Most Recently Relevant to Health Maintenance Insurance C3 Care Teams Heating Fixture Tender Relationship Specialty Start Date End Date Claudette Garcia MD [address] [place] [phone] PCP - General Family Medicine 01/25/22
--- OUTSIDE RECORDS SUMMARY | 2025-03-02 11:30 | XMS_ITS | Encounter Summary ---
Author Organization [employer] Address [address] [facility] 7t [place] [address] Care Team Providers Care Aeronautics Teacher Name Role Phone Claudette Garcia MD Primary Care Provide r Reason for Visit * Reason Onset Date Comments Med Refill 02/18/2025 Encounter Details Date Type Department Care Team (Late st Contact Info) Description 02/18/2025 Refill [facility] [address] [place] [phone] Claudette Garcia MD [address] [place], [place] [phone] Allergic rhinitis, unspecified seasonality, unspecified trigger Social History Tobacco Use Types Packs/Day Years [...] Description 03/28/2025 10:15 AM EST Office Visit [facility] [address] [place] [address] Claudette Garcia MD [address] [place] [address] 04/05/2025 1:00 PM EST Office Visit [facility] [address] [place] [address] TarkaTessKira, OD [address] [place] [address] documented as of this encounter Visit Diagnoses Diagnosis Allergic rhinitis, unspecified seasonality, unspecified trigger documented in this encounter Additional Health Concerns Assessment Noted Time PHQ-9 Depression Total Score: 1 01/28/20 25 9:26 AM EDT documented as of this encounter Care Teams Aeronautics Teacher Relationship Specialty Start Date End Date Claudette Garcia MD [address] [place] [address] PCP - General Family Medicine 01/25/22 documented as of this encounter
--- OUTSIDE RECORDS SUMMARY | 2025-03-02 11:30 | XMS_ITS | Encounter Summary ---
Author Organization [employer] Address [address] [facility] [address] [address] [place] [address] Care Team Providers Care Dehydrogenation Converter Helper Name Role Phone Claudette Garcia MD Primary Care Provide r Encounter Details Date Type Department Care Team ([facility] st Contact Info) Description 09/01/2023 Orders Only [facility] [address] [place], [place] [phone] Jesus Snow MD [address] [place], [place] [phone] Social History Tobacco Use Types Packs/Day Years [...] Office Visit [facility] [address] [place] [address] Claudette Garcia MD [address] [place] [address] 04/05/2025 1:00 PM EST Office Visit [facility] [address] [place] [address] Tarka, Kira, OD [address] [place] [address] documented as of this encounter Visit Diagnoses Not on filedocumented in this encounter Additional Health Concerns Assessment Noted Time PHQ-9 Depression Total Score: 11 023 2:41 PM EDT documented as of this encounter Care Teams Dehydrogenation Converter Helper Relationship Specialty Start Date End Date Claudette Garcia MD [address] [place] [address] PCP - General Family Medicine 01/25/22 documented as of this encounter
--- OUTSIDE RECORDS SUMMARY | 2025-03-02 11:30 | XMS_ITS | Encounter Summary ---
Author Organization [employer] Address [address] [facility] 7t [place] [address] Care Team Providers Care Olive Brine Tester Name Role Phone Claudette Garcia MD Primary Care Provide r Reason for Visit * Reason Onset Date Comments Med Refill 02/18/2025 Encounter Details Date Type Department Care Team (Late st Contact Info) Description 02/18/2025 Refill [facility] [address] [place], [place] [phone] Jesus Snow MD [address] [place] [address] COVID-19 Social History Tobacco Use Types Packs/Day [...] Description 03/28/2025 10:15 AM EST Office Visit [facility] [address] [place] [address] Claudette Garcia MD [address] [place] [address] 04/05/2025 1:00 PM EST Office Visit [facility] [address] [place] [address] TarkaKira, OD [address] [place] [address] documented as of this encounter Visit Diagnoses Diagnosis COVID-19 documented in this encounter Additional Health Concerns Assessment Noted Time PHQ-9 Depression Total Score: 1 01/28/20 25 9:26 AM EDT documented as of this encounter Care Teams Olive Brine Tester Relationship Specialty Start Date End Date Claudette Garcia MD [address] [place] [phone] PCP - General Family Medicine 01/25/22 documented as of this encounter
--- OUTSIDE RECORDS SUMMARY | 2025-03-02 11:30 | XMS_ITS | Encounter Summary ---
Author Organization [employer] Address [address] [facility] [address]t [place] [address] Care Team Providers Care Straddle Truck Driver Name Role Phone Claudette Garcia MD Primary Care Provide r Reason for Visit * Reason Onset Date Comments Med Refill 05/06/2023 Encounter Details Date Type Department Care Team (Late st Contact Info) Description 05/06/2023 Refill [facility] [address] [place], [place] [phone] Claudette Garcia MD [address] [place], [place] [phone] Pruritus of both hands Social History Tobacco [...] 03/28/2025 10:15 AM EST Office Visit [facility] [address] [place] [address] Claudette Garcia MD [address] [place] [address] 04/05/2025 1:00 PM EST Office Visit [facility] [address] [place] [address] TarKira michaud, OD [address] [place] [address] documented as of this encounter Visit Diagnoses Diagnosis Pruritus of both hands documented in this encounter Additional Health Concerns Assessment Noted Time PHQ-9 Depression Total Score: 11 023 2:41 PM EDT documented as of this encounter Care Teams Straddle Truck Driver Relationship Specialty Start Date End Date Claudette Garcia MD [address] [place] [phone] PCP - General Family Medicine 01/25/22 documented as of this encounter
--- OUTSIDE RECORDS SUMMARY | 2025-03-02 11:30 | XMS_ITS | Encounter Summary ---
Author Organization [employer] Address [address] [facility] [address] 7t [place] [address] Care Team Providers Care Electrolytic De Scaler Name Role Phone Claudette Garcia MD Primary Care Provide r Reason for Visit * Reason Onset Date Comments Med Refill 05/06/2023 Encounter Details Date Type Department Care Team (Late st Contact Info) Description 05/06/2023 Refill [facility] 230 [place], [place] [phone] Jesus Snow MD 230 [place], [place] [phone] Vitamin D deficiency Social History Tobacco Use [...] Description 03/28/2025 10:15 AM EST Office Visit [facility] 230 [place] [address] Claudette Garcia MD 230 [place] [address] 04/05/2025 1:00 PM EST Office Visit [facility] [address] [place] [address] Tarka, Kira, OD 267 [place] [address] documented as of this encounter Visit Diagnoses Diagnosis Vitamin D deficiency documented in this encounter Additional Health Concerns Assessment Noted Time PHQ-9 Depression Total Score: 11 023 2:41 PM EDT documented as of this encounter Care Teams Electrolytic De Scaler Relationship Specialty Start Date End Date Claudette Garcia MD [address] [place] [phone] PCP - General Family Medicine 01/25/22 documented as of this encounter
--- OUTSIDE RECORDS SUMMARY | 2025-03-02 11:30 | XMS_ITS | Encounter Summary ---
Author Organization [employer] Address 75 [facility] 7t [place] [address] Care Team Providers Care Hairspring Vibrator Name Role Phone Claudette Garcia MD Primary Care Provide r Reason for Visit * Reason Onset Date Comments Med Refill 02/18/2025 Encounter Details Date Type Department Care Team (Late st Contact Info) Description 02/18/2025 Refill [facility] 230 [place], [place] [phone] Molly Bryant MD 230 [place], [place] [phone] Social History Tobacco Use Types Packs/Day Years [...] 10:15 AM EST Office Visit [facility] 230 [place] [address] Claudette Garcia MD 230 [place] [address] 04/05/2025 1:00 PM EST Office Visit [facility] 267 [place] [address] Tarka, Kira, OD 267 [place] [address] documented as of this encounter Visit Diagnoses Not on filedocumented in this encounter Additional Health Concerns Assessment Noted Time PHQ-9 Depression Total Score: 1 01/28/20 25 9:26 AM EDT documented as of this encounter Care Teams Hairspring Vibrator Relationship Specialty Start Date End Date Claudette Garcia MD [address] [place] [address] PCP - General Family Medicine 01/25/22 documented as of this encounter
--- OUTSIDE RECORDS SUMMARY | 2025-03-02 11:30 | XMS_ITS | Encounter Summary ---
Author Organization [employer] Address [address] 7[address] [place] [address] Care Team Providers Care Roving Teller Name Role Phone Claudette Garcia MD Primary Care Provide r Reason for Visit * Reason Onset Date Comments Med Refill 05/06/2023 Encounter Details Date Type Department Care Team (Late st Contact Info) Description 05/06/2023 Refill [facility] 230 [place], [place] [phone] Wilman Boudreaux MD 230 [place], [place] [phone] COVID-19 Social History Tobacco Use Types Packs/Day [...] Description 03/28/2025 10:15 AM EST Office Visit [facility] 230 [place] [address] Claudette Garcia MD 230 [place] [address] 04/05/2025 1:00 PM EST Office Visit [facility] 267 [place] [address] TarKira michaud, OD 267 [place] [address] documented as of this encounter Visit Diagnoses Diagnosis COVID-19 documented in this encounter Additional Health Concerns Assessment Noted Time PHQ-9 Depression Total Score: 11 023 2:41 PM EDT documented as of this encounter Care Teams Roving Teller Relationship Specialty Start Date End Date Claudette Garcia MD [address] [place] [phone] PCP - General Family Medicine 01/25/22 documented as of this encounter
--- OUTSIDE RECORDS SUMMARY | 2025-03-02 11:30 | XMS_ITS | Encounter Summary ---
Author Organization [employer] Address 75 [facility] 7t [place] [address] Care Team Providers Care Linoleum Layer Apprentice Name Role Phone Claudette Garcia MD Primary Care Provide r Reason for Visit * Reason Onset Date Comments Results 12/16/2022 PAP results Encounter Details Date Type Department Care Team (Late st Contact Info) Description 12/16/2022 Telephone [facility] 230 [place], [place] [phone] Claudette Garcia MD 230 [place], [place] [phone] Results (PAP results/) Social History Tobacco Use [...] Description 03/28/2025 10:15 AM EST Office Visit [facility] 230 [place] [address] Claudette Garcia MD 230 [place] [address] 04/05/2025 1:00 PM EST Office Visit [facility] 267 [place] [address] Kira Stevenson, OD 267 [place] [address] documented as of this encounter Visit Diagnoses Not on filedocumented in this encounter Additional Health Concerns Assessment Noted Time PHQ-9 Depression Total Score: 11 023 2:41 PM EDT documented as of this encounter Care Teams Linoleum Layer Apprentice Relationship Specialty Start Date End Date Claudette Garcia MD 230 [place] [address] PCP - General Family Medicine 01/25/22 documented as of this encounter
--- OUTSIDE RECORDS SUMMARY | 2025-03-02 11:30 | XMS_ITS | Encounter Summary ---
Author Organization [email or web address] Address 75 [facility] 7t [place] [address] Care Team Providers Care Flexo Press Operator Name Role Phone Claudette Garcia MD Primary Care Provide r Encounter Details Date Type Department Care Team ([facility] st Contact Info) Description 01/31/2025 Results Follow-Up [facility] 230 [place] [address] Diana Fuentes CNM 230 [place] [address] Chlamydia/N. Gonorrhoeae RNA, TMA, Vagina Social History [...] Office Visit [facility] 230 [place] [address] Claudette Garcia MD 230 [place] [address] 04/05/2025 1:00 PM EST Office Visit [facility] 267 [place] [address] Tarka Kira, OD 267 [place] [address] documented as of this encounter Visit Diagnoses Not on filedocumented in this encounter Additional Health Concerns Assessment Noted Time PHQ-9 Depression Total Score: 1 01/28/20 25 9:26 AM EDT documented as of this encounter Care Teams Flexo Press Operator Relationship Specialty Start Date End Date Claudette Garcia MD [address] [place] [address] PCP - General Family Medicine 01/25/22 documented as of this encounter
[2025-03-02 12:53] LABS: Anion Gap 10 (12-20); Blood Urea Nitrogen 13 mg/dL (9-16); Calcium 9.5 mg/dL (8.4-10.2); Carbon Dioxide 28 mmol/L (22-29); Chloride 107 mmol/L (96-108); Estimated Glomerular Filt Rate > 60; Potassium 4.3 mmol/L (3.3-5.1); Sodium 141 mmol/L (135-145)
[2025-03-02 13:19] LABS: Folate 9.3 ng/mL (> or = 4.0); Vitamin B12 388 pg/mL (200-900)
== END 2025-03-02 09:54 | disposition home or self-care (01) ==
LOC: HO.HHCL 09:53
PROVIDERS: PCP Internal Medicine Geriatric Medicine; Visit Provider Internal Medicine Geriatric Medicine
DX: R20.2 Paresthesia of skin (principal)
CPT/HCPCS: 36415; 80048; 82607; 82746; 83036; 84443

== ENCOUNTER 2025-03-06 14:40 | Emergency (ER) | payer MEDICAID, SELFPAY ==
--- OUTSIDE RECORDS SUMMARY | 2025-03-02 09:40 | XMS_ITS | Encounter Summary ---
Author Organization [employer] Address [address] [facility] 7t [place] [address] Care Team Providers Care Supervisor Train Operations Name Role Phone Claudette Garcia MD Primary Care Provide r Reason for Referral * Neurology (Routine) - Authorized Specialty Diagnoses / Procedures Referred By Contac t Referred To Contact Diagnoses Paresthesia of foot, bilateral Paresthesia of upper limb Procedures Nerve conduction test Jose Whalen MD [address] [place] [address] Phone: tel: fax: [address] Phone: tel: fax: Referral ID Status Reason Start Date Expiration Date V isits Requested Visits Authorized [id number] Authorized 03/02/2025 03/02/2026 1 1 Reason for Visit * Reason Comments Numbness Encounter Details Date Type Department Care Team (Late st Contact Info) Description 03/02/2025 9:40 AM EST Office Visit [facility] [address] [place] [address] [phone] Jose Whalen MD [address] [place] [phone] Paresthesia of foot, bilateral (Primary Dx); Paresthesia of upper limb Social History Tobacco Use Types Packs/Day Years [...] PM EDT documented as of this encounter Last Filed Vital Signs Vital Sign Reading Time Taken Comments Blood Pressure 139/84 03/02/2025 9:31 AM EST Pulse 74 03/02/2025 9:31 AM EST Temperature 36.4 C (97.6 F) 03/02/2025 9:31 AM EST Respiratory Rate 14 03/02/2025 9:31 AM EST Oxygen Saturation 97% 03/02/2025 9:31 AM EST Inhaled Oxygen Concentration - - Weight 159 kg (350 lb 9.6 oz) 03/02/2025 9:31 AM EST Height 175.3 cm (5' 9 ) 03/02/2025 9:31 AM EST Body Mass Index 51.77 03/02/2025 9:31 AM EST documented in this encounter Progress Notes * Jose Whalen MD - 03/02/2025 9:40 AM EST Subjective Patient ID: Gisselle Beasley is a 24 y.o. female who presents for Numbness. Patient comes complaining of several days of paresthesias on her feet, lower legs, bilateral hands and arms. She describes tingling and slight discomfort on palpation. She does not recall having similar symptoms in the past. She does not have any neck pain, no low back pain, no joint pain, no jointswelling or redness, no rash. She does not have any history of diabetes or thyroid problems. Review of Systems Constitutional: Negative for chills and fever. HENT: Negative for sore throat. Respiratory: Negative for cough, shortness of breath and wheezing. Cardiovascular: Negative for chest pain, palpitations and leg swelling. Gastrointestinal: Negative for abdominal pain. Endocrine: Negative for cold intolerance, polydipsia and polyuria. Musculoskeletal: Negative for arthralgias, back pain, joint swelling and neck pain. Neurological: Negative for dizziness, weakness and headaches. Objective Vitals: 03/02/25 0931 BP: 139/84 BP Location: Left arm Patient Position: Sitting BP Cuff Size: Large adult Pulse: 74 Resp: 14 Temp: 97.6 ??F (36.4 ??C) TempSrc: Temporal SpO2: 97% Weight: 350 lb 9.6 oz (159 kg) Height: 5' 9 (1.753 m) Physical Exam Constitutional: Appearance: Normal appearance. Cardiovascular: Rate and Rhythm: Normal rate and regular rhythm. Heart sounds: No murmur heard. No gallop. Pulmonary: Effort: Pulmonary effort is normal. No respiratory distress. Breath sounds: Normal breath sounds. No wheezing. Musculoskeletal: Right lower leg: No edema. Left lower leg: No edema. Neurological: General: No focal deficit present. Mental Status: She is alert and oriented to person, place, and time. Cranial Nerves: No cranial nerve deficit. Sensory: No sensory deficit. Motor: No weakness. Coordination: Coordination normal. Gait: Gait normal. Assessment/Plan Diagnoses and all orders for this visit: Paresthesia of foot, bilateral Comments: Patient with symptoms of generalized paresthesias worse in the feet since last week. Physical exam is unremarkable. I recommend evaluation with blood work listed below, referral to nerve conduction studies for evaluation. She has upcoming appointment with PCP. Further recommendation based on results. Orders: - Basic Metabolic Panel; Future - Hemoglobin A1c; Future - Vitamin B12/Folate, Serum Panel; Future - TSH W/Reflex to FT4; Future - Nerve conduction test; Future Paresthesia of upper limb - Basic Metabolic Panel; Future - Hemoglobin A1c; Future - Vitamin B12/Folate, Serum Panel; Future - TSH W/Reflex to FT4; Future - Nerve conduction test; Future Future Appointments Date Time Provider Department Center 03/28/2025 10:15 AM Claudette Rainey MD MEDICINE [facility] 04/05/2025 1:00 PM Kira Stevenson OD VISION [facility] documented in this encounter Plan of Treatment Upcoming Encounters Date Type Department Care Team (Late st Contact Info) Description 03/28/2025 10:15 AM EST Office Visit [facility] MEDICINE [address] [place] [address] Claudette Garcia MD [address] [place] [address] 04/05/2025 1:00 PM EST Office Visit [facility] OPTOMETRY [address] [place] [address] Kira Stevenson OD [address] [place] [address] Scheduled Orders Name Type Priority Associated Diagnoses Orde r Schedule Nerve conduction test Neurology Routine Paresthesia of foot, bilateral Paresthesia of upper limb Expected: 03/02/2025 (Approximate), Expires: 03/02/2026 documented as of this encounter Procedures Procedure Name Priority Date/Time Associated Diagnosis Comments VITAMIN B12/FOLATE, SERUM PANEL Routine 03/02/2025 10:07 AM EST Paresthesia of foot, bilateral Paresthesia of upper limb TSH W/REFLEX TO FT4 Routine 03/02/2025 1 0:07 AM EST Paresthesia of foot, bilateral Paresthesia of upper limb HEMOGLOBIN A1C Routine 03/02/2025 10:07 AM EST Paresthesia of foot, bilateral Paresthesia of upper limb BASIC METABOLIC PANEL Routine 03/02/2025 10:07 AM EST Paresthesia of foot, bilateral Paresthesia of upper limb documented in this encounter Results * TSH W/Reflex to FT4 (03/02/2025 10:07 AM EST) TSH reflex Free T4 2.55 0.32 - 4.0 uIU/mL [facility] Blood Venous blood specimen / Unknown 03/02/2025 10:07 AM EST 03/02/2025 11:49 AM EST us Jose Whalen MD LAB BLOOD ORDERABLES Final Resul t [facility] [address] [place] [phone] * Vitamin B12/Folate, Serum Panel (03/02/2025 10:07 AM EST) Vitamin B12 388 200 - 900 pg/mL [facility] Comment:NORMAL 200-900 PG/ML INDETERMINATE 160-199 PG/ML DEFICIENT < 160 PG/ML Folate 9.3 > or = 4.0 ng/mL [facility] Comment:Reference Values:> o r = 4.0 ng/mL< 4.0 ng/mL suggests folate deficiency Methotrexate, aminopterin and folinic acid(leucovorin) are chemotherapeutic agents whose molecularstructures are similar to folate; therefore, the Architectfolate assay cannot be used for patients using these drugs. Blood Venous blood specimen / Unknown 03/02/2025 10:07 AM EST 03/02/2025 11:49 AM EST us Jose Whalen MD LAB BLOOD ORDERABLES Final Resul t Performing Organization Address [facility] Co de Phone Number [facility] [address] [place] [phone] * Hemoglobin A1c (03/02/2025 10:07 AM EST) Hemoglobin A1c 5.4 <6.0 % [facility] Comment:Hemoglobin A1C Refer ence Range Adults: 4.8 - 6.0 % Non diabetic: < 6.0 % Goal: < 7.0 %Additional Action Suggested: > 8.0 %Note: Hemoglobin A1c results are invalid for patients with abnormal amounts of HbF. Blood transfusions may impact the HbA1c concentration in the patient sample. Estimated Average Glucose 108 mg/dL [facility] Comment:eAG = Estimated ave rage glucose which is %A1C expressed asaverage glucose, using the formula of the A2V-ChxwlwxYkfkhca Glucose study (ADAG), Diabetes Care, Vol.31,#8,Nov. 2007 Blood Venous blood specimen / Unknown 03/02/2025 10:07 AM EST 03/02/2025 11:58 AM EST us Jose Whalen MD LAB BLOOD ORDERABLES Final Resul t Performing Organization Address [facility] Co de Phone Number [facility] [address] [place] [phone] * (ABNORMAL) Basic Metabolic Panel (03/02/2025 10:07 AM EST) Sodium 141 135 - 145 mmol/L [facility] Potassium 4.3 3.3 - 5.1 mmol/L [facility] Chloride 107 96 - 108 mmol/L [facility] Carbon Dioxide 28 22 - 29 mmol/L [facility] Anion Gap 10(L) 12 - 20 [facility] Urea Nitrogen (BUN) 13 9 - 16 mg/dL [facility] Creatinine, Serum 0.71 0.5 - 1.4 mg/dL [facility] Estimated Glomerular Filt Rate >60 [facility] Comment:Chronic Kidney Disea se: Estimated GFR < 60 mL/min/1.50v0Vyofie Kidney Disease: Estimated GFR < 15 mL/min/1.73m2 Glucose 103 60 - 115 mg/dL [facility] Calcium 9.5 8.4 - 10.2 mg/dL [facility] Blood Venous blood specimen / Unknown 03/02/2025 10:07 AM EST 03/02/2025 11:49 AM EST us Jose Name LAB BLOOD ORDERABLES Final Resul t [facility] [address] [place] [phone] documented in this encounter Visit Diagnoses Diagnosis Paresthesia of foot, bilateral- Primary Paresthesia of upper limb documented in this encounter Additional Health Concerns Assessment Noted Time PHQ-9 Depression Total Score: 1 01/28/20 25 9:26 AM EDT documented as of this encounter Care Teams Supervisor Train Operations Relationship Specialty Start Date End Date Claudette Garcia MD [address] [place] [phone] PCP - General Family Medicine 01/25/22 documented as of this encounter
--- NOTE | ~2025-03-06 | CT_ITS ---
CLINICAL HISTORY: dizziness HAs CT Head Without Contrast: Comparison: 11/27/2023 Findings: Cortical sulci are symmetric Basal ganglia are unremarkable No shift in midline structures No intraparenchymal bleeding or abnormal extra axial blood fluid collections Normal pituitary size. Cerebellar pontine angles and internal auditory canals are unremarkable. Clear paranasal sinuses Unremarkable orbital structures No depressed fractures. The right parotid gland is not visualized and is normal location posterior to the sternocleidomastoid on limited field of view. An island of 2.5 cm diameter parotid tissue is located anterior to the right masseter , indenting the buccal space. Correlate with surgical history. Impression: Mastoid air cells and middle ear cavities are clear. Unremarkable CT of the head, no signs of acute trauma This document has been electronically signed by: Andi Farfan MD on 03/06/2025 16:20:51
[2025-03-06 14:43] VITALS: BP 163/86; PULSE 82; RESP 16; TEMP 36.6; O2SAT 96; BMI 52.1
--- NOTE | 2025-03-06 14:44 | ED.GENADULT ---
HPI - General Adult General Chief complaint: General Medical Stated complaint: Fever Body Aches Time Seen by Provider: 03/06/25 17:42 Source: patient Mode of arrival: ambulatory Limitations: no limitations History of Present Illness ED Provider: Dr. Camara [facility] narrative: 24-year-old female presented hospital today for evaluation of numbness down her right great toe, 2nd toe and 3rd toe. Patient stated that this has been going on for a a couple of weeks now. Patient has been complaining of weakness as well. And body aches. She is also complaining of near syncopal episodes. Therefore she presents to the ER for further evaluation. Related Data Previous Rx's ?Medication ?Instructions ?Recorded amoxicillin 875 mg-potassium 1 tab PO BID #14 tabs 07/26/24 clavulanate 125 mg tablet azithromycin 250 mg tablet See Rx Instructions PO .COMPLEX #6 07/26/24 tabs ibuprofen 600 mg tablet 600 mg PO Q6H PRN pain #30 tabs 07/26/24 ondansetron 4 mg disintegrating 4 mg PO Q8H PRN nausea and 07/26/24 tablet vomiting #20 tabs tamsulosin 0.4 mg capsule 0.4 mg PO DAILY 5 days #5 caps 07/26/24 amoxicillin 875 mg-potassium 1 tab PO Q12H #14 tabs 02/15/25 clavulanate 125 mg tablet azithromycin 250 mg tablet See Rx Instructions PO .COMPLEX #6 02/15/25 tabs Allergies Allergy/AdvReac Type Severity Reaction Status Date / Time No Known Allergies Allergy Verified 03/06/25 14:46 Review of Systems Review of Systems: Pertinent review of systems as mentioned in HPI. All other system otherwise negative. [facility] Past Medical History [facility] Narrative: None Medical History (Updated 03/07/25 @ 00:01 by Brittney Miranda) Obesity Social History Social History (Updated 07/26/24 @ 07:46 by Estefani Alaniz DO) Patient Tobacco Use Status: Never used Tobacco Smoked in Last 30 Days: No Advance Directives: No Advance Directives Information Provided: No Do you have a plan to hurt others: No Plan Patient : No Physical Exam ED Exam Exam: General: Pleasant, no distress, interacting appropriately Head: Normacephalic, atraumatic ENT: oral mucosa moist, neck supple, no tracheal deviation Cardiovascular: regular rate, regular rhythm, no murmurs, rubbing, gallops Respiratory: CTAB, no wheeze, rales, rhonchi Gastrointestinal: Soft, non distended, non tender, non guarding Extremities: CMS intact in bilateral lower extremity. Neurological: Awake and alert, no facial droop noted, no focal neurological deficit , see NIH score for stroke evaluation Skin: Warm and dry Psychiatric: Appropriate mood and thoughts Vital Signs: Vital Signs - 24 hr 03/06/25 14:43 03/06/25 18:14 Temperature 97.9 F 97.9 F Pulse Rate 82 82 Respiratory Rate 16 16 Blood Pressure 163/86 H 163/86 H Pulse Oximetry 96 96 Oxygen Delivery Method Room Air Room Air BMI result Body Mass Index 52.1 NIH Stroke Scale Internal: Initial- Upon Arrival Level of Consciousness: Alert Level of Consciousness Questions: Answers both questions correctly Level of Consciousness Commands: Performs both tasks correctly Best Gaze: Normal Visual: No visual loss Facial Palsy: Normal Motor Arm (Right): No drift Motor Arm (Left): No drift Motor Leg (Right): No drift Motor Leg (Left): No drift Limb Ataxia: Absent Sensory: Normal Best Language: No aphasia Dysarthia: Normal Extinction and Inattention: No abnormality Score: 0 Course Course Course Narrative: This is a Rapid Medical Examination (RME) performed by Yarely Walls PA-C in triage. Full HPI, ROS, assessment and treatment plan per primary provider in the Main ED. Hx: 24 yo F here for eval of generalized weakness, myalgias, numbness to toes, headaches, dizziness, feeling faint x1 week. evaluated at walk in - discharge w/ normal blood work. symptoms continued. Plan: labs, ct head Medical Decision Making Medical Decision Making MDM Narrative: 24-year-old female presented hospital today for evaluation of isolated numbness in the right 1st 2nd and 3rd toe. She does not have any numbness in her foot or leg area. It is specifically isolated to her toes. Patient is also complaining of some weakness and body aches . Denies any shortness of breath or chest pain. Review patient's lab work. CBC is unremarkable. Patient's chemistries unremarkable. The patient does have slight increase in ALT likely secondary to fatty liver. Previous provider had ordered a CT head prior to my evaluation. This result was negative. Patient is neurologically intact. I I have low concern for a stroke. NIH of 0. The patient will be discharged at this time. She does have nerve study schedule. For evaluation of neuropathy. Encouraged to follow up with the primary care team for further investigation. Differential Diagnosis Differential Diagnoses: The differential diagnosis associated with the presentation includes CVA, neuropathy, lumbar radiculopathy, sciatica Lab Data [facility] Lab Attestation statement: I reviewed the patient's lab results. 03/06/25 15:04 03/06/25 15:04 Labs: Lab Results 03/06/25 03/06/25 Range/Units 15:04 16:05 WBC 8.8 (4.8-10.8) X10*3/uL RBC 4.55 (4.20-5.50) X10*6/uL Hgb 13.0 (12.0-16.0) g/dl Hct 40.2 (37.0-47.0) % MCV 88.4 (80.0-98.0) fL MCH 28.6 (27.0-33.0) pg MCHC 32.3 (31.0-35.0) g/dl RDW 12.4 (11.0-16.0) % Plt Count 369 (160-400) X10*3/uL MPV 9.8 (9.4-12.3) fL Immature Gran % (Auto) 0.3 (0.0-0.4) % Neut % (Auto) 64.0 (45-73) % Lymph % (Auto) 25.8 (20-40) % [place] % (Auto) 6.8 (2-11) % Eos % (Auto) 2.3 (0-4) % Baso % (Auto) 0.8 (0-2) % Lymph # (Auto) 2.3 (1.2-4.9) X10*3/uL [place] # (Auto) 0.6 (0.1-1.2) X10*3/uL Eos # (Auto) 0.2 (0.0-0.4) X10*3/uL Baso # (Auto) 0.1 (0.0-0.2) X10*3/uL Abs Immat Gran (auto) 0.03 (0.00-0.03) X10*3/uL Absolute Neuts (auto) 5.7 (2.0-8.3) x10*3/uL Absolute Nucleated RBC 0.000 (0.0-0.012) X10*3/uL Nucleated RBC % (auto) 0.0 (0.0-0.2) /100WBC Sodium 139 (135-145) mmol/L Potassium 4.1 (3.3-5.1) mmol/L Chloride 107 (96-108) mmol/L Carbon Dioxide 25 (22-29) mmol/L Anion Gap 11 L (12-20) BUN 13 (9-16) mg/dL Creatinine 0.64 (0.5-1.4) mg/dL Estim Creat Clear Calc 218.0 Estimated GFR > 60 Random Glucose 95 (60-115) mg/dL Calcium 9.5 (8.4-10.2) mg/dL Magnesium 1.6 (1.6-2.6) mg/dL Total Bilirubin 0.3 (0.0-1.0) mg/dL AST 30 (5-31) U/L ALT 42 H (0-31) U/L Alkaline Phosphatase 56 (39-117) U/L Total Protein 7.3 (6.5-8.0) g/dL Albumin 4.2 (3.5-5.0) g/dL Beta HCG, Quant < 2 mIU/mL Influenza Type A (PCR) NEGATIVE (Negative) Influenza Type B (PCR) NEGATIVE (Negative) RSV RNA Qual (PCR) NEGATIVE (Negative) SARS-CoV-2 RNA (RT-PCR) NEGATIVE (Negative) Independent Interpretation I performed an independent interpretation of an: CT Scan Radiology Impression Discussion of test interpretation with radiology: I have reviewed the radiologist's reading. Discharge Plan Discharge Clinical Impression: Numbness of toes Patient Disposition: Home, Self-Care Additional Instructions: Follow up with your primary care doctor. Your CT imaging is negative for any intracranial abnormality. I don't think this is a stroke. Follow up with the nerve testing. Prescriptions: No Action azithromycin 250 mg tablet See Rx Instructions .ROUTE .COMPLEX Qty: 6 0RF Rx Instructions: For 250 mg dose pack: take 500 mg today (day 1), then 250 mg for 4 days (days 2-5) ibuprofen 600 mg tablet 600 mg PO Q6H PRN (Reason: pain) Qty: 30 0RF ondansetron 4 mg tablet,disintegrating 4 mg PO Q8H PRN (Reason: nausea and vomiting) Qty: 20 0RF amoxicillin-pot clavulanate 875-125 mg tablet 1 tab PO BID Qty: 14 0RF tamsulosin 0.4 mg capsule 0.4 mg PO DAILY 5 Days Qty: 5 0RF azithromycin 250 mg tablet See Rx Instructions .ROUTE .COMPLEX Qty: 6 0RF Rx Instructions: For 250 mg dose pack: take 500 mg today (day 1), then 250 mg for 4 days (days 2-5) amoxicillin-pot clavulanate 875-125 mg tablet 1 tab PO Q12H Qty: 14 0RF Stand Alone Forms: Work/School Release Interventions: ED Discharge Assessment Last Done: 03/06/25 18:14 Discharge Date/Time: 03/06/25 18:14 Print Language: Luxembourgish
[2025-03-06 15:09] LABS: Hematocrit 40.2 % (37.0-47.0); Hemoglobin 13.0 g/dl (12.0-16.0); Imm Gran Abs Auto 0.03 X10*3/uL (0.00-0.03); Imm Gran Pct Auto 0.3 % (0.0-0.4); Lymphocytes Absolute Auto 2.3 X10*3/uL (1.2-4.9); MANUAL DIFF FLAG NO; Mean Corpuscular HGB Conc 32.3 g/dl (31.0-35.0); Mean Corpuscular Hemoglobin 28.6 pg (27.0-33.0); Mean Corpuscular Volume 88.4 fL (80.0-98.0); NRBC Abs Auto 0.000 X10*3/uL (0.0-0.012); NRBC Pct Auto 0.0 /100WBC (0.0-0.2); Platelet Count 369 X10*3/uL (160-400); Red Blood Count 4.55 X10*6/uL (4.20-5.50); White Blood Count 8.8 X10*3/uL (4.8-10.8)
[2025-03-06 15:29] LABS: Alanine Aminotransferase 42 U/L (0-31); Albumin Level 4.2 g/dL (3.5-5.0); Alkaline Phosphatase 56 U/L (39-117); Anion Gap 11 (12-20); Aspartate Amino Transferase 30 U/L (5-31); Blood Urea Nitrogen 13 mg/dL (9-16); Calcium 9.5 mg/dL (8.4-10.2); Carbon Dioxide 25 mmol/L (22-29); Chloride 107 mmol/L (96-108); Creatinine Clr Calc Pharmacy 218.0; Estimated Glomerular Filt Rate > 60; Magnesium 1.6 mg/dL (1.6-2.6); Potassium 4.1 mmol/L (3.3-5.1); Sodium 139 mmol/L (135-145); Total Protein 7.3 g/dL (6.5-8.0)
--- OUTSIDE RECORDS SUMMARY | 2025-03-06 15:57 | XMS_ITS | Encounter Summary ---
Author Organization [employer] Address 75 [facility] 7t [place] [address] Care Team Providers Care Garage Door Installer Name Role Phone Claudette Garcia MD Primary Care Provide r Reason for Visit * Reason Onset Date Comments Med Refill 02/18/2025 Encounter Details Date Type Department Care Team (Late st Contact Info) Description 02/18/2025 Refill [facility] 230 [place], [place] [phone] Molly Bryant MD 230 [place], [place] [phone] Social History Tobacco Use Types Packs/Day Years [...] Description 03/28/2025 10:15 AM EST Office Visit [facility] 230 [place] [address] Claudette Garcia MD 230 [place] [address] 04/05/2025 1:00 PM EST Office Visit [facility] [address] [place] [address] Tarka, Kira, OD 267 [place] [address] documented as of this encounter Visit Diagnoses Not on filedocumented in this encounter Additional Health Concerns Assessment Noted Time PHQ-9 Depression Total Score: 1 01/28/20 25 9:26 AM EDT documented as of this encounter Care Teams Garage Door Installer Relationship Specialty Start Date End Date Claudette Garcia MD [address] [place] [id number] PCP - General Family Medicine 01/25/22 documented as of this encounter
--- OUTSIDE RECORDS SUMMARY | 2025-03-06 15:57 | XMS_ITS | Encounter Summary ---
Author Organization [employer] Address 75 [facility] 7t [place] [address] Care Team Providers Care County Surveyor Name Role Phone Claudette Garcia MD Primary Care Provide r Reason for Visit * Reason Onset Date Comments Med Refill 02/18/2025 Encounter Details Date Type Department Care Team (Late st Contact Info) Description 02/18/2025 Refill [facility] [address] [place] [phone] Claudette Garcia MD 230 [place], [place] [phone] Allergic rhinitis, unspecified seasonality, unspecified trigger Social [...] Description 03/28/2025 10:15 AM EST Office Visit [facility] 230 [place] [address] Claudette Garcia MD 230 [place] [address] 04/05/2025 1:00 PM EST Office Visit [facility] [address] [place] [address] TarkaTessKira, OD 267 [place] [address] documented as of this encounter Visit Diagnoses Diagnosis Allergic rhinitis, unspecified seasonality, unspecified trigger documented in this encounter Additional Health Concerns Assessment Noted Time PHQ-9 Depression Total Score: 1 01/28/20 25 9:26 AM EDT documented as of this encounter Care Teams County Surveyor Relationship Specialty Start Date End Date Claudette Garcia MD 230 [place] [address] PCP - General Family Medicine 01/25/22 documented as of this encounter
--- OUTSIDE RECORDS SUMMARY | 2025-03-06 15:57 | XMS_ITS | Encounter Summary ---
Author Organization [employer] Address 75 [facility] 7t [place] [address] Care Team Providers Care Physician Representative Name Role Phone Claudette Garcia MD Primary Care Provide r Encounter Details Date Type Department Care Team ([facility] st Contact Info) Description 03/03/2025 Results Follow-Up [facility] 230 [place] [address] Name, MD Jose 230 [place] [address] Basic Metabolic Panel, Hemoglobin A1c, Vitamin B12/Folate, Serum Panel, TSH W/Reflex to FT4 Social History Tobacco Use Types Packs/Day Years [...] encounter Miscellaneous Notes * Telephone Encounter - Khushi Garcia RN - 03/04/2025 9:44 AM EST T/C to pt. Advised of message from Dr. Whalen re: normal lab results. Pt verbalized understanding andexpressed gratitude for call. * Telephone Encounter - Khushi Garcia RN - 03/04/2025 9:41 AM EST ----- Message from Jose Whalen MD sent at 03/03/2025 1:46 PM EST ----- Please let the patient know that her blood work is normal. ----- Message ----- From: Interface, Lab Results In Sent: 03/02/2025 12:20 PM EST To: Jose Whalen MD documented in this encounter Plan of Treatment Upcoming Encounters Date Type Department Care Team (Late st Contact Info) Description 03/28/2025 10:15 AM EST Office Visit [facility] [address] [place] [address] Claudette Garcia MD 230 [place] [address] 04/05/2025 1:00 PM EST Office Visit [facility] [address] [place], [place] [phone] Kira Stevenson, OD 267 [place], [place] [phone] documented as of this encounter Visit Diagnoses Not on filedocumented in this encounter Additional Health Concerns Assessment Noted Time PHQ-9 Depression Total Score: 1 01/28/20 25 9:26 AM EDT documented as of this encounter Care Teams Physician Representative Relationship Specialty Start Date End Date Claudette Garcia MD 230 [place] [address] PCP - General Family Medicine 01/25/22 documented as of this encounter
--- OUTSIDE RECORDS SUMMARY | 2025-03-06 15:57 | XMS_ITS | Encounter Summary ---
Author Organization [employer] Address 75 [facility] 7t [place] [address] Care Team Providers Care Dental Mechanic Name Role Phone Claudette Garcia MD Primary [...] 10:15 AM EST Office Visit [facility] 230 [place] [address] Claudette Garcia MD 230 [place] [address] 04/05/2025 1:00 PM EST Office Visit [facility] OPTOMETRY 267 [place] [address] Tarka, Kira, OD 267 [place] [address] documented as of this encounter Visit Diagnoses Not on filedocumented in this encounter Additional Health Concerns Assessment Noted Time PHQ-9 Depression Total Score: 1 01/28/20 25 9:26 AM EDT documented as of this encounter Care Teams Dental Mechanic Relationship Specialty Start Date End Date Claudette Garcia MD [address] [place] [address] PCP - General Family Medicine 01/25/22 documented as of this encounter
--- OUTSIDE RECORDS SUMMARY | 2025-03-06 15:57 | XMS_ITS | Encounter Summary ---
Author Organization [employer] Address [address] [facility] [address]t [place] [address] Care Team Providers Care Supervisor Patching Name Role Phone Claudette Garcia MD Primary Care Provide r Encounter Details Date Type Department Care Team (Late st Contact Info) Description 03/06/2025 Orders Only GENERIC EXTERNAL DATA DEPARTMENT Provider, Generic External Data Social History Tobacco Use Types Packs/Day Years [...] Description 03/28/2025 10:15 AM EST Office Visit [facility] [address] [place] [address] Claudette Garcia MD [address] [place] [address] 04/05/2025 1:00 PM EST Office Visit [facility] OPTOMETRY [address] [place] [address] Tarka, Kira, OD [address] [place] [address] documented as of this encounter Procedures Procedure Name Priority Date/Time Associated Diagnosis Comments CBC WITH AUTO DIFFERENTIAL Routine 03/06/2025 3:04 PM EST HCG, TOTAL, QN Routine 03/06/2025 3:04 PM EST MAGNESIUM Routine 03/06/2025 3:04 PM EST COMPREHENSIVE METABOLIC PANEL Routine 03/06/2025 3:04 PM EST documented in this encounter Results * hCG, Total, Quantitative (03/06/2025 3:04 PM EST) HCG Quantitative <2 mIU/mL [facility] Comment:Weeks post LMP Appro ximate hCG(Last Menstrual Period) Range (mIU/ml)3 - 4 weeks 9 - 1304 - 5 weeks 75 - 2,6005 - 6 weeks 850 - 20,8006 - 7 weeks 4000 - 100,2007 - 12 weeks 11,500 - 289,53635 - 16 weeks 18,300 - 137,34498 - 29 weeks (2nd trimester) 1,400 - 53,41577 - 41 weeks (3rd trimester) 940 - 60,000The [place] B- hCG assay is used for the early detection ofpregnancy; it cannot be used to diagnose any conditionunrelated to . If a B-hCG level is not supportedby the clinical evidence, results should be confirmed by analternative method (qualitative urine hCG, for example). 03/06/2025 3:04 PM EST 03/06/2025 3:07 PM EST Generic External Data Provider LAB BLOOD ORDERAB LES Final Result Performing Organization Address [facility] Co de Phone Number [facility] [address] [place] [phone] * Magnesium (03/06/2025 3:04 PM EST) Magnesium 1.6 1.6 - 2.6 mg/dL [facility] 03/06/2025 3:04 PM EST 03/06/2025 3:07 PM EST Generic External Data Provider LAB BLOOD ORDERAB LES Final Result Performing Organization Address [facility] de Phone Number [facility] [address] [place] [phone] * (ABNORMAL) Comprehensive Metabolic Panel (03/06/2025 3:04 PM EST) Sodium 139 135 - 145 mmol/L [facility] Potassium 4.1 3.3 - 5.1 mmol/L [facility] Chloride 107 96 - 108 mmol/L [facility] Carbon Dioxide 25 22 - 29 mmol/L [facility] Anion Gap 11(L) 12 - 20 [facility] Urea Nitrogen (BUN) 13 9 - 16 mg/dL [facility] Creatinine, Serum 0.64 0.5 - 1.4 mg/dL [facility] Creatinine Clr Calc Pharmacy 218.0 [facility] Comment:Provided height and weight: 175.26 cm,160 kg.eGFR (calculated from the MDRD study equation) and eCrCl(calculated from the Cockcroft-Gault equation) are based ondifferent parameters and may not yield comparable results.If eCrCl result is absurd, please check patient'sheight/weight. Estimated Glomerular Filt Rate >60 [facility] Comment:Chronic Kidney Disea se: Estimated GFR < 60 mL/min/[id number] Kidney Disease: Estimated GFR < 15 mL/min/1.73m2 Glucose 95 60 - 115 mg/dL [facility] Calcium 9.5 8.4 - 10.2 mg/dL [facility] Bilirubin, Total 0.3 0.0 - 1.0 mg/dL [facility] Aspartate Amino Transferase 30 5 - 31 U/L [facility] Alanine Aminotransferase 42(H) 0 - 31 U/L [facility] Total Protein 7.3 6.5 - 8.0 g/dL [facility] Albumin Level 4.2 3.5 - 5.0 g/dL [facility] Alkaline Phosphatase 56 39 - 117 U/L [facility] 03/06/2025 3:04 PM EST 03/06/2025 3:07 PM EST us Generic External Data Provider LAB BLOOD ORDERAB LES Final Result [facility] [address] [place] [phone] [phone] * CBC auto differential (03/06/2025 3:04 PM EST) White Blood Count 8.8 4.8 - 10.8 X10*3/uL [facility] Red Blood Count 4.55 4.20 - 5.50 X10*6/uL [facility] Hemoglobin 13.0 12.0 - 16.0 g/dl [facility] Hematocrit 40.2 37.0 - 47.0 % [facility] Mean Corpuscular Volume 88.4 80.0 - 98.0 fL [facility] Mean Corpuscular Hemoglobin 28.6 27.0 - 33.0 pg [facility] Mean Corpuscular HGB Conc 32.3 31.0 - 35.0 g/dl [facility] Red Cell Distribution Width 12.4 11.0 - 16.0 % [facility] Platelet Count 369 160 - 400 X10*3/uL [facility] Mean Platelet Volume 9.8 9.4 - 12.3 fL [facility] Neutrophils Percent Auto 64.0 45 - 73 % [facility] Imm Gran Pct Auto 0.3 0.0 - 0.4 % [facility] Lymphocytes Percent Auto 25.8 20 - 40 % [facility] Monocytes Percent Auto 6.8 2 - 11 % [facility] Eosinophils Percent Auto 2.3 0 - 4 % [facility] Basophils Percent Auto 0.8 0 - 2 % [facility] NRBC Pct Auto 0.0 0.0 - 0.2 /100WBC [facility] Neutrophils Absolute Auto 5.7 2.0 - 8.3 x10*3/uL [facility] Imm Gran Abs Auto 0.03 0.00 - 0.03 X10*3/uL [facility] Lymphocytes Absolute Auto 2.3 1.2 - 4.9 X10*3/uL [facility] Monocytes Absolute Auto 0.6 0.1 - 1.2 X10*3/uL [facility] Eosinophils Absolute Auto 0.2 0.0 - 0.4 X10*3/uL [facility] Basophils Absolute Auto 0.1 0.0 - 0.2 X10*3/uL [facility] NRBC Abs Auto 0.000 0.0 - 0.012 X10*3/uL [facility] 03/06/2025 3:04 PM EST 03/06/2025 3:07 PM EST us Generic External Data Provider LAB BLOOD ORDERAB LES Final Result [facility] [address] [place] [address] [phone] documented in this encounter Visit Diagnoses Not on filedocumented in this encounter Additional Health Concerns Assessment Noted Time PHQ-9 Depression Total Score: 1 01/28/20 25 9:26 AM EDT documented as of this encounter Care Teams Supervisor Patching Relationship Specialty Start Date End Date Claudette Garcia MD [address] [place] [address] PCP - General Family Medicine 01/25/22 documented as of this encounter
--- OUTSIDE RECORDS SUMMARY | 2025-03-06 15:57 | XMS_ITS | Encounter Summary ---
Author Organization [employer] Address [address] [facility] [address] [place] [address] Care Team Providers Care Inside Sales Person Name Role Phone Claudette Garcia MD Primary Care Provide r Reason for Visit * Reason Onset Date Comments Med Refill 02/18/2025 Encounter Details Date Type Department Care Team (Late st Contact Info) Description 02/18/2025 Refill [facility] [address] [place], [place] [phone] Jesus Snow MD [address] [place] [address] COVID-19 Social History Tobacco Use Types Packs/Day [...] 10:15 AM EST Office Visit [facility] [address] [place] [address] Claudette Garcia MD [address] [place] [address] 04/05/2025 1:00 PM EST Office Visit [facility] OPT[facility] [address] [place] [address] TarkaKira, OD [address] [place] [address] documented as of this encounter Visit Diagnoses Diagnosis COVID-19 documented in this encounter Additional Health Concerns Assessment Noted Time PHQ-9 Depression Total Score: 1 01/28/20 25 9:26 AM EDT documented as of this encounter Care Teams Inside Sales Person Relationship Specialty Start Date End Date Claudette Garcia MD [address] [place] [phone] PCP - General Family Medicine 01/25/22 documented as of this encounter
--- OUTSIDE RECORDS SUMMARY | 2025-03-06 15:57 | XMS_ITS | Encounter Summary ---
Author Organization [employer] Address [address] [facility] [address] [place] [address] Care Team Providers Care Retort Furnace Operator Name Role Phone Claudette Garcia MD Primary Care Provide r Encounter Details Date Type Department Care Team ([facility] st Contact Info) Description 01/31/2025 Results Follow-Up [facility] [address] [place] [address] Diana Fuentes CNM [address] [place] [address] Chlamydia/N. Gonorrhoeae RNA, TMA, Vagina Social History [...] Description 03/28/2025 10:15 AM EST Office Visit [facility] [address] [place] [address] Claudette Garcia MD [address] [place] [address] 04/05/2025 1:00 PM EST Office Visit [facility] OPT[facility] [address] [place] [address] Tarka Kira, OD [address] [place] [address] documented as of this encounter Visit Diagnoses Not on filedocumented in this encounter Additional Health Concerns Assessment Noted Time PHQ-9 Depression Total Score: 1 01/28/20 25 9:26 AM EDT documented as of this encounter Care Teams Retort Furnace Operator Relationship Specialty Start Date End Date Claudette Garcia MD [address] [place] [phone] PCP - General Family Medicine 01/25/22 documented as of this encounter
--- OUTSIDE RECORDS SUMMARY | 2025-03-06 15:58 | XMS_ITS | Encounter Summary ---
Author Organization [employer] Address [address] [facility] [address] [place] [address] Care Team Providers Care Hot Frame Tender Name Role Phone Claudette Garcia MD Primary Care Provide r Reason for Visit * Reason Onset Date Comments Results 12/16/2022 PAP results Encounter Details Date Type Department Care Team (Late st Contact Info) Description 12/16/2022 Telephone [facility] [address] [place], [place] [phone] Claudette Garcia MD [address] [place], [place] [phone] Results (PAP results/) Social History Tobacco Use [...] 10:15 AM EST Office Visit [facility] [address] [place] [address] Claudette Garcia MD [address] [place] [address] 04/05/2025 1:00 PM EST Office Visit [facility] OPT[facility] [address] [place] [address] Kira Stevenson, OD [address] [place] [address] documented as of this encounter Visit Diagnoses Not on filedocumented in this encounter Additional Health Concerns Assessment Noted Time PHQ-9 Depression Total Score: 11 023 2:41 PM EDT documented as of this encounter Care Teams Hot Frame Tender Relationship Specialty Start Date End Date Claudette Garcia MD [address] [place] [address] PCP - General Family Medicine 01/25/22 documented as of this encounter
--- OUTSIDE RECORDS SUMMARY | 2025-03-06 15:58 | XMS_ITS | Encounter Summary ---
Author Organization [employer] Address [address] [facility] 7t [place] [address] Care Team Providers Care College Instructor Name Role Phone Claudette Garcia MD Primary Care Provide r Reason for Visit * Reason Onset Date Comments Med Refill 05/06/2023 Encounter Details Date Type Department Care Team (Late st Contact Info) Description 05/06/2023 Refill [facility] [address] [place], [place] [phone] Claudette Garcia MD [address] [place], [place] [phone] Pruritus of both hands Social History Tobacco [...] Description 03/28/2025 10:15 AM EST Office Visit [facility] [address] [place] [address] Claudette Garcia MD [address] [place] [address] 04/05/2025 1:00 PM EST Office Visit [facility] OPTOMETRY [address] [place] [address] TarKira michaud, OD [address] [place] [address] documented as of this encounter Visit Diagnoses Diagnosis Pruritus of both hands documented in this encounter Additional Health Concerns Assessment Noted Time PHQ-9 Depression Total Score: 11 023 2:41 PM EDT documented as of this encounter Care Teams College Instructor Relationship Specialty Start Date End Date Claudette Garcia MD [address] [place] [phone] PCP - General Family Medicine 01/25/22 documented as of this encounter
--- OUTSIDE RECORDS SUMMARY | 2025-03-06 15:58 | XMS_ITS | Clinical Summary ---
Author Organization [employer] Address [address] [facility] 7t h [address] [address] Care Team Providers Care Per Diem Nurse Name Role Phone Claudette Garcia MD Primary [...] 02/19/20 25 026 Active oxymetazoline ([facility]) 0.05 % nasal spray Administer 2 sprays [...] not trigger notification to Pharmacy)) [facility] 0.05 % nasal spray ADMINISTER 2 SPRAYS [...] adult 03/26/2022 Severe obesity (BMI >= 40) (CMS/[facility]) 03/26/2022 Arbc-qp-[id number] spots 08/28/2011 Attention deficit disorder of childhood 08/28/19 12 Encounters Date Type Department Care Team Description 03/06/2025 Orders Only GENERIC EXTERNAL DATA DEPARTMENT Provider, Generic External Data 03/03/2025 Results Follow-Up [facility] MEDICINE [address] [place] [phone] Jose Whalen MD Basic Metabolic Panel, Hemoglobin A1c, Vitamin B12/Folate, Serum Panel, TSH W/Reflex to FT4 03/02/2025 9:40 AM EST Office Visit [facility] WALK-IN CENTER [address] [place] [phone] Jose Whalen MD Paresthesia of foot, bilateral (Primary Dx); Paresthesia of upper limb 03/02/2025 Travel 02/20/2025 Refill [facility] [address] [place] [phone] Jesus Snow MD COVID-19 02/18/2025 Refill [facility] MED[facility]INE [address] [place] [phone] Molly Bryant MD 02/18/2025 Refill [facility] [address] [place] [address] [phone] Jesus Snow MD COVID-19 02/18/2025 Refill [facility] [address] [place] [address] [phone] Claudette Garcia MD Allergic rhinitis, unspecified seasonality, unspecified trigger 02/18/2025 Refill [facility] MED[facility]INE [address] [place] [phone] Claudette Garcia MD Vitamin D deficiency; Allergic rhinitis, unspecified seasonality, unspecified trigger 02/15/2025 Orders Only [facility] External Provider, [facility] 01/31/2025 Results Follow-Up [facility] MEDICINE [address] [place] [address] [phone] Juan Sawant CNM Chlamydia/N. Gonorrhoeae RNA, TMA, Vagina 01/27/2025 9:30 AM EDT Office Visit [facility] MEDICINE [address] [place] [phone] Juan Sawant CNM Screening examination for venereal disease (Primary Dx); Vaginal odor; Checking subdermal contraceptive 01/27/2025 Travel 01/26/2025 Telephone [facility] MEDICINE [address] [place] [phone] Claudette Garcia MD chartprep 12/28/2024 1:40 PM EDT Office Visit [facility] W[facility] [address] [place] [address] [phone] Johanny Lopez MD Costochondritis (Primary Dx); Chest discomfort; Witnessed episode of apnea; Daytime somnolence; BMI 50.0-59.9, adult (CMS/[facility]) 12/28/2024 Travel 12/09/[address] [address] Juan Sawant CNM No Show 12/08/[address] [address] Juan Sawant CNM chart prep from Last [...] is your housing situation today? I have indramustapha shelton 01/27/[address] you [...] Description 03/28/2025 10:15 AM EST Office Visit [facility] MEDICINE [address] [place] [address] Claudette Garcia MD [address] [place] [address] 04/05/2025 1:00 PM EST Office Visit [facility] OPTOMETRY [address] [place] [address] Kira Stevenson, OD [address] [place] [address] Health Maintenance Due Date Last Done Comments DTaP/Tdap/Td Vaccines (7 - Td or Tdap) 08/27/2021 08/28/2011, 12/15/2003, 01/25/2000, Additional history exists COVID-19 Vaccine (3 - season) 2024 01/22/2022, 07/30/2021 Influenza Vaccine (#1) 2024 3, 01/22/2022, 04/02/2013, Additional history exists Pap Smear [...] Procedure Name Priority Date/Time Associated Diagnosis Comments HCG, TOTAL, QN Routine 03/06/2025 3:04 PM EST MAGNESIUM Routine 03/06/2025 3:04 PM EST COMPREHENSIVE METABOLIC PANEL Routine 03/06/2025 3:04 PM EST CBC WITH AUTO DIFFERENTIAL Routine 03/06/2025 3:04 PM EST TSH W/REFLEX TO FT4 Routine 03/02/2025 1 0:07 AM EST Paresthesia of foot, bilateral Paresthesia of upper limb VITAMIN B12/FOLATE, SERUM PANEL Routine 03/02/2025 10:07 AM EST Paresthesia of foot, bilateral Paresthesia of upper limb HEMOGLOBIN A1C Routine 03/02/2025 10:07 AM EST Paresthesia of foot, bilateral Paresthesia of upper limb BASIC METABOLIC PANEL Routine 03/02/2025 10:07 AM EST Paresthesia of foot, bilateral Paresthesia of upper limb XR CHEST 1 VIEW Routine 02/15/2025 9:02 [...] of apnea Daytime somnolence BMI 50.0-59.9, adult (CMS/HCC) ECG 12-LEAD Routine 12/28/2024 1:31 PM EDT [...] Recently Relevant to Health Maintenance Results * CBC auto differential (03/06/2025 3:04 PM EST) White Blood Count 8.8 4.8 - 10.8 X10*3/uL [facility] Red Blood Count 4.55 4.20 - 5.50 X10*6/uL [facility] Hemoglobin 13.0 12.0 - 16.0 g/dl [facility] Hematocrit 40.2 37.0 - 47.0 % [facility] Mean Corpuscular Volume 88.4 80.0 - 98.0 fL [facility] Mean Corpuscular Hemoglobin 28.6 27.0 - 33.0 pg [facility] Mean Corpuscular HGB Conc 32.3 31.0 - 35.0 g/dl [facility] Red Cell Distribution Width 12.4 11.0 - 16.0 % [facility] Platelet Count 369 160 - 400 X10*3/uL [facility] Mean Platelet Volume 9.8 9.4 - 12.3 fL [facility] Neutrophils Percent Auto 64.0 45 - 73 % [facility] Imm Gran Pct Auto 0.3 0.0 - 0.4 % [facility] Lymphocytes Percent Auto 25.8 20 - 40 % [facility] Monocytes Percent Auto 6.8 2 - 11 % [facility] Eosinophils Percent Auto 2.3 0 - 4 % [facility] Basophils Percent Auto 0.8 0 - 2 % [facility] NRBC Pct Auto 0.0 0.0 - 0.2 /100WBC [facility] Neutrophils Absolute Auto 5.7 2.0 - 8.3 x10*3/uL [facility] Imm Gran Abs Auto 0.03 0.00 - 0.03 X10*3/uL [facility] Lymphocytes Absolute Auto 2.3 1.2 - 4.9 X10*3/uL [facility] Monocytes Absolute Auto 0.6 0.1 - 1.2 X10*3/uL [facility] Eosinophils Absolute Auto 0.2 0.0 - 0.4 X10*3/uL [facility] Basophils Absolute Auto 0.1 0.0 - 0.2 X10*3/uL [facility] NRBC Abs Auto 0.000 0.0 - 0.012 X10*3/uL [facility] 03/06/2025 3:04 PM EST 03/06/2025 3:07 PM EST us Generic External Data Provider LAB BLOOD ORDERAB LES Final Result [facility] [address] [place] [phone] * hCG, Total, Quantitative (03/06/2025 3:04 PM EST) HCG Quantitative <2 mIU/mL [facility] Comment:Weeks post LMP Appro ximate hCG(Last Menstrual Period) Range (mIU/ml)3 - 4 weeks 9 - 1304 - 5 weeks 75 - 2,6005 - 6 weeks 850 - 20,8006 - 7 weeks 4000 - 100,2007 - 12 weeks 11,500 - 289,94159 - 16 weeks 18,300 - 137,60235 - 29 weeks (2nd trimester) 1,400 - 53,57705 - 41 weeks (3rd trimester) 940 - 60,000The White B- hCG assay is used for the early detection ofpregnancy; it cannot be used to diagnose any conditionunrelated to . If a B-hCG level is not supportedby the clinical evidence, results should be confirmed by analternative method (qualitative urine hCG, for example). 03/06/2025 3:04 PM EST 03/06/2025 3:07 PM EST Generic External Data Provider LAB BLOOD ORDERAB LES Final Result Performing Organization Address [facility]/ZIP Co de Phone Number [facility] [address] [place] [address] [phone] * Magnesium (03/06/2025 3:04 PM EST) Pathologist [facility] Magnesium 1.6 1.6 - 2.6 mg/dL [facility] 03/06/2025 3:04 PM EST 03/06/2025 3:07 PM EST Generic External Data Provider LAB BLOOD ORDERAB LES Final Result Performing Organization Address [facility]/ZIP Co de Phone Number [facility] [address] [place] [phone] * (ABNORMAL) Comprehensive Metabolic Panel (03/06/2025 3:04 PM EST) Sodium 139 135 - 145 mmol/L [facility] Potassium 4.1 3.3 - 5.1 mmol/L [facility] Chloride 107 96 - 108 mmol/L [facility] Carbon Dioxide 25 22 - 29 mmol/L [facility] Anion Gap 11(L) 12 - 20 [facility] Urea Nitrogen (BUN) 13 9 - 16 mg/dL [facility] Creatinine, Serum 0.64 0.5 - 1.4 mg/dL [facility] Creatinine Clr Calc Pharmacy 218.0 [facility] Comment:Provided height and weight: 175.26 cm,160 kg.eGFR (calculated from the MDRD study equation) and eCrCl(calculated from the Cockcroft-Gault equation) are based ondifferent parameters and may not yield comparable results.If eCrCl result is absurd, please check patient'sheight/weight. Estimated Glomerular Filt Rate >60 [facility] Comment:Chronic Kidney Disea se: Estimated GFR < 60 mL/min/1.64p1Gbesnv Kidney Disease: Estimated GFR < 15 mL/min/1.73m2 Glucose 95 60 - 115 mg/dL [facility] Calcium 9.5 8.4 - 10.2 mg/dL [facility] Bilirubin, Total 0.3 0.0 - 1.0 mg/dL [facility] Aspartate Amino Transferase 30 5 - 31 U/L [facility] Alanine Aminotransferase 42(H) 0 - 31 U/L [facility] Total Protein 7.3 6.5 - 8.0 g/dL [facility] Albumin Level 4.2 3.5 - 5.0 g/dL [facility] Alkaline Phosphatase 56 39 - 117 U/L [facility] 03/06/2025 3:04 PM EST 03/06/2025 3:07 PM EST us Generic External Data Provider LAB BLOOD ORDERAB LES Final Result [facility] [address] [place] [address] [phone] * Vitamin B12/Folate, Serum Panel (03/02/2025 10:07 AM EST) Vitamin B12 388 200 - 900 pg/mL [facility] Comment:NORMAL 200-900 PG/ML INDETERMINATE 160-199 PG/ML DEFICIENT < 160 PG/ML Folate 9.3 > or = 4.0 ng/mL [facility] Comment:Reference Values:> o r = [...] ORDERABLES Final Resul t Performing Organization Address [facility] Co de Phone Number [facility] [address] [place] [address] [phone] * TSH W/Reflex to FT4 (03/02/2025 10:07 AM EST) TSH reflex Free T4 2.55 0.32 - 4.0 uIU/mL [facility] Blood Venous blood specimen / Unknown 03/02/2025 10:07 AM EST 03/02/2025 11:49 AM EST Result Scott Whalen MD LAB BLOOD ORDERABLES Final Resul t Performing Organization Address [facility] de Phone Number [facility] [address] [place] [address] [phone] * Hemoglobin A1c (03/02/2025 10:07 AM EST) Hemoglobin A1c 5.4 <6.0 % [facility] Comment:Hemoglobin A1C Refer ence Range Adults: 4.8 - 6.0 % Non diabetic: < 6.0 % Goal: < 7.0 %Additional Action Suggested: > 8.0 %Note: Hemoglobin A1c results are invalid for patients with abnormal amounts of HbF. Blood transfusions may impact the HbA1c concentration in the patient sample. Estimated Average Glucose 108 mg/dL [facility] Comment:eAG = Estimated ave rage glucose which is %A1C expressed asaverage glucose, using the formula of the Q4L-QhawtyxQqnzxcv Glucose study (ADAG), Diabetes Care, Vol.31,#8,Nov. 2007 Blood Venous blood specimen / Unknown 03/02/2025 10:07 AM EST 03/02/2025 11:58 AM EST Result Scott Whalen MD LAB BLOOD ORDERABLES Final Resul t Performing Organization Address [facility] de Phone Number [facility] [address] [place] [phone] * (ABNORMAL) Basic Metabolic Panel (03/02/2025 10:07 AM EST) Sodium 141 135 - 145 mmol/L [facility] Potassium 4.3 3.3 - 5.1 mmol/L [facility] Chloride 107 96 - 108 mmol/L [facility] Carbon Dioxide 28 22 - 29 mmol/L [facility] Anion Gap 10(L) 12 - 20 [facility] Urea Nitrogen (BUN) 13 9 - 16 mg/dL [facility] Creatinine, Serum 0.71 0.5 - 1.4 mg/dL [facility] Estimated Glomerular Filt Rate >60 [facility] Comment:Chronic Kidney Disea se: Estimated GFR < 60 mL/min/1.87s7Mskoke Kidney Disease: Estimated GFR < 15 mL/min/1.73m2 Glucose 103 60 - 115 mg/dL [facility] Calcium 9.5 8.4 - 10.2 mg/dL [facility] Blood Venous blood specimen / Unknown 03/02/2025 10:07 AM EST 03/02/2025 11:49 AM EST us Jose Whalen MD LAB BLOOD ORDERABLES Final Resul t Performing Organization Address [facility] de Phone Number [facility] [address] [place] [address] [phone] * XR Chest 1 View (02/15/2025 9:02 PM EDT) Anatomical Region Laterality Modality Chest Radiographic Makenna ging 02/15/2025 9:02 PM EDT Narrative 02/15/2025 9:03 PM EDT [address] [address] XRay Report Signed Patient: Brenda Perez MR#: [id number] : 2000 Acct:[id number] Age/Sex: 24 / F ADM Date: 02/15/25 Loc: HO.ED Attending Dr: Ordering Physician: Chris Medina Date of Service: 02/15/25 Procedure(s): XR chest 1V Accession Number(s): [id number] cc: Chris Medina; Claudette Garcia MD Reason [...] in OV> 02/15/252102 DD/ 01 TD/TT: 02/15/252101 Museum Educator: Procedure Note Donotuseinterpreter, Image - 02/15/2025 [place] [address] XRay Report Signed Patient: Brenda Perez#: M [id number] : 2000Acct:[id number] Age/Sex: 24 / FADM Date: 02/15/25 Loc: .ED Attending Dr: Ordering Physician: Chris Medina Date of Service: 02/15/25 Procedure(s): XR chest 1V Accession Number(s): [id number] cc: Chris Medina; Claudette Garcia MD Reason [...] in OV> 02/15/252102 DD/ 01 TD/TT: 02/15/252101 Museum Educator: [facility] External Provider IMG XR PROCEDURES Final Result * Influenza A B2 ID NOW (White) (02/15/2025 7:45 PM EDT) IDNOW SERIAL# [id number] [facility] Influenza A Negative Negative [facility] Influenza B2 Negative Negative [facility] Influenza A B2 Note See Note [facility] Comment:The White ID NOW In [...] LAB MICROBIOLOGY - GENERAL ORDERABLES Final Result [facility] [address] [place] [address] [phone] * Strep A Nucleic Acid (02/15/2025 7:45 PM EDT) IDNOW SERIAL# [id number] [facility] Strep A Nucleic Acid Negative Negative [facility] Comment:All test results mus t [...] LAB MICROBIOLOGY - GENERAL ORDERABLES Final Result [facility] [address] [place] [address] [phone] * COVID-19 ID NOW ([email or web address]) (02/15/2025 7:45 PM EDT) IDNOW SERIAL# [id number] [facility] COVID-19 TEST Negative Negative [facility] COVID-19 NOTE See Note [facility] Comment: Results are for the identification of SARS-CoV2 RNA. TheSARS-CoV2 RNA is generally detectable in respiratory samplesduring the acute phase of infection. Positive results areindicative of the presence of SARS-CoV-2 RNA; clinicalcorrelation with patient history and other diagnosticinformation is necessary to determine patient infectionstatus. Positive results do not rule out bacterial infectionor co- infection with other viruses.Testing facilities within the [facility] and [facility] are required to report all positive results [...] GNOSTICS ORDERABLES Final Result Performing Organization Address City/[facility]/ZIP Co de Phone Number [facility] [address] [place], [place] [phone] * POCT fern test, vaginal fluid manually resulted (01/27/2025 10:19 AM EDT) Pathologist [facility] EKATERINA Prep Positive Comment:pH 4.5, neg whiff, n eg clue, neg trich, neg wbc, pos hyphae Vaginal Fluid Vaginal structure / Unknown 01/27/2025 10:19 AM EDT Juan Moore CNM - 01/27/2025 10:19 AM EDT yeast Juan Sawant CNM POINT OF CARE TEST ENTER/ EDIT ORDERABLES Final Result * Trichomonas RNA (Urine/Vaginal) (01/27/2025 10:00 AM EDT) [facility] Trichomas vaginalis RNA, QL, TMA NOT DETECTED NOT DETECTED [facility] Comment:For additional infor mation, please refer tohttp://education.[employer]/faq/Trichomonastma(This link is being provided for informational/educational purposes only.)THIS TEST WAS PERFORMED AT:[employer] [place] [phone]-PIERRE GIL MD Swab 01/27/2025 10:0 0 AM EDT 01/27/2025 6:11 PM EDT Juan Sawant CNM LAB BODY FLUIDS AND STOOL S ORDERABLES Final Result Performing Organization Address City/[facility]/ZIP Co de Phone Number [facility] [address] [place], [place] [phone] * Chlamydia/N. Gonorrhoeae RNA, TMA, Vagina (01/27/2025 10:00 AM EDT) Pathologist [facility] CT PCR NOT DETECTED Not Detect. [facility] Comment:A not detected test result [...] psychologicalconsequences. NG PCR NOT DETECTED Not Detect. [facility] Comment:A not detected test result [...] EDT 01/27/2025 6:11 PM EDT us Juan Sawant CNM LAB MICROBIOLOGY - GENERA L ORDERABLES Final Result [facility] [address] [place] [phone] * Referral to Sleep Medicine (01/03/2025) us Johanny Lopez MD OUTPATIENT REFERRAL ORDERA BLES Final Result * ECG 12 lead (12/28/2024 1:31 PM EDT) Johanny Chandra MD - 12/28/2024 1:31 PM EDT NSR 82 bpm No evidence of ischemia or past infarction us Johanny Lopez MD ECG ORDERABLES Final Resu lt * Pap Smear (12/11/2022) 12/11/2022 12/13/2022 8:5 0 AM EDT Micheal [facility] - 12/28/2022 2:13 PM EDT ----- ------- Name: BRENDA PEREZ Age/Sex: 22/F : 2000 Unit#: [id number] Attend Dr: JUAN SAWANT CNM Re12/12/22 Status: DEP REF Location: [facility] Disch: ----- ------- SPEC : [id number] RECD: 12/13/22-50 STATUS: KELLY JAIME NUM: [id number] BERYL: 12/11/22- SUBM DR: JUAN SAWANT CNM ENTERED: 12/13/22-1001 SP TYPE: Pap [facility] DR: ORDERED: Pap Smear Interpretation Satisfactory for evaluation. Negative for intraepithelial lesion or malignancy. Clinical Information LMP: Unknown date Previous PAP test: Unknown date/findings Material Received ThinPrep-Vaginal/Cervical ----- ------- Signed (signature on file) Laura Tucker 12/28/22 1413 ----- ------- END OF REPORT us Juan Sawant [facility] LAB CYTOLOGY ORDERABLES F inal Result [facility] [address] [place] [phone] * Lipid Panel, Standard (12/02/2022 3:59 PM EDT) Triglycerides 151 mg/dL [facility] Comment:Desirable Triglyceri de: less than 150 mg/dLBorderline High Triglyceride 150-199 mg/dLHigh Triglyceride: 200-499 mg/dLVery High Triglyceride: greater than or equal to 5OO mg/dL Cholesterol 147 mg/dL [facility] Comment:Desirable Cholestero l: less than 200 mg/dLBorderline High Cholesterol: 200-239 mg/dLHigh Cholesterol: greater than 239 mg/dL LDL Cholesterol Calculated 80 mg/dl [facility] Comment:Desirable LDL: less than 100 mg/dLNear Optimal/Above Optimal LDL: 110- 129 mg/dLBorderline High LDL: 130-159 mg/dLHigh LDL: 160-189 mg/dLVery High LDL: greater than or equal to 190 mg/dL HDL Cholesterol 37 mg/dL [facility] Comment:Desirable HDL: great er than 40 mg/dL Note: This HDL assay may give artificially low results in patients with liver disease. Blood Venous blood specimen / Unknown 12/02/2022 3:59 PM EDT 12/02/2022 5:47 PM EDT Claudette Rainey MD LAB BLOOD ORDERABLES Final Result Performing Organization Address City/[facility] Co de Phone Number [facility] [address] [place] [address] [phone] * HEPATITIS C AB W/REFL TO [...] a test for HCV RNA (test code 13570) is suggested. For additional information please refer to http://education.[employer]/faq/ZZU69a3 (This link is being provided for informational/ educational purposes only.) 01/25/2022 10:1 3 AM EDT us Claudette Rainey MD HISTORICAL/NON ORDERA BLE LABS Final Result Performing Organization Address City/[facility] Co de Phone Number CONVERTED [...] purpose. For additional information please refer to http://education.[employer]/faq/FQK810 (This link is being provided for informational/ educational purposes only.) The performance of this assay has not been clinically validated in patients less than 2 years old. 01/25/2022 10:1 3 AM EDT Claudette Rainey MD LAB BLOOD ORDERABLES Final Result [facility] from Last 3 Months or Most Recently Relevant to Health Maintenance Insurance Care Teams Per Diem Nurse Relationship Specialty Start Date End Date Claudette Garcia MD [address] [place] [address] PCP - General Family Medicine 01/25/22
--- OUTSIDE RECORDS SUMMARY | 2025-03-06 15:58 | XMS_ITS | Encounter Summary ---
Author Organization [employer] Address [address] [facility] [address] [place] [address] Care Team Providers Care Assistant Front End Manager Name Role Phone Claudette Garcia MD Primary Care Provide r Encounter Details Date Type Department Care Team ([facility] st Contact Info) Description 09/01/2023 Orders Only [facility] WALK-IN CENTER [address] [place], [place] [phone] Jesus Snow MD [address] [place], [place] [phone] Social History Tobacco Use Types Packs/Day Years [...] 03/28/2025 10:15 AM EST Office Visit [facility] MEDICINE [address] [place] [address] Claudette Garcia MD [address] [place] [address] 04/05/2025 1:00 PM EST Office Visit [facility] OPTOMETRY [address] [place] [address] Tarka, Kira, OD [address] [place] [address] documented as of this encounter Visit Diagnoses Not on filedocumented in this encounter Additional Health Concerns Assessment Noted Time PHQ-9 Depression Total Score: 11 023 2:41 PM EDT documented as of this encounter Care Teams Assistant Front End Manager Relationship Specialty Start Date End Date Claudette Garcia MD [address] [place] [address] PCP - General Family Medicine 01/25/22 documented as of this encounter
--- OUTSIDE RECORDS SUMMARY | 2025-03-06 15:58 | XMS_ITS | Encounter Summary ---
Author Organization [employer] Address [address] 7t [place] [address] Care Team Providers Care Director Regulatory Compliance Name Role Phone Claudette Garcia MD Primary Care Provide r Reason for Visit * Reason Onset Date Comments Med Refill 05/06/2023 Encounter Details Date Type Department Care Team (Late st Contact Info) Description 05/06/2023 Refill [facility] [address] [place], [place] [phone] Wilman Boudreaux MD 230 [place], [place] [phone] COVID-19 Social History Tobacco Use Types Packs/Day [...] Description 03/28/2025 10:15 AM EST Office Visit [facility] MEDICINE [address] [place] [address] Claudette Garcia MD 230 [place] [address] 04/05/2025 1:00 PM EST Office Visit [facility] OPTOMETRY [address] [place] [address] TarKira michaud, OD [address] [place] [address] documented as of this encounter Visit Diagnoses Diagnosis COVID-19 documented in this encounter Additional Health Concerns Assessment Noted Time PHQ-9 Depression Total Score: 11 023 2:41 PM EDT documented as of this encounter Care Teams Director Regulatory Compliance Relationship Specialty Start Date End Date Claudette Garcia MD [address] [place] [id number] PCP - General Family Medicine 01/25/22 documented as of this encounter
--- OUTSIDE RECORDS SUMMARY | 2025-03-06 15:58 | XMS_ITS | Encounter Summary ---
Author Organization [employer] Address [address] [facility] [address] 7t [place] [address] Care Team Providers Care Metal Slitter Name Role Phone Claudette Garcia MD Primary Care Provide r Reason for Visit * Reason Onset Date Comments Med Refill 05/06/2023 Encounter Details Date Type Department Care Team (Late st Contact Info) Description 05/06/2023 Refill [facility] 230 [place], [place] [phone] Jesus Snow MD 230 [place], [place] [phone] Vitamin D deficiency Social History Tobacco Use [...] 03/28/2025 10:15 AM EST Office Visit [facility] MEDICINE 230 [place] [address] Claudette Garcia MD 230 [place] [address] 04/05/2025 1:00 PM EST Office Visit [facility] OPTOMETRY [address] [place] [address] Tarka, Kira, OD [address] [place] [address] documented as of this encounter Visit Diagnoses Diagnosis Vitamin D deficiency documented in this encounter Additional Health Concerns Assessment Noted Time PHQ-9 Depression Total Score: 11 023 2:41 PM EDT documented as of this encounter Care Teams Metal Slitter Relationship Specialty Start Date End Date Claudette Garcia MD [address] [place] [id number] PCP - General Family Medicine 01/25/22 documented as of this encounter
--- OUTSIDE RECORDS SUMMARY | 2025-03-06 15:58 | XMS_ITS | Clinical Summary ---
Author Organization [facility] ity Address [address] [place] [address] Care Team Providers Care Orthotic Aide Name Role Phone Christi Mcdaniel MD Primary [...] age to complete this topic Care Teams Orthotic Aide Relationship Specialty Start Date End Date Christi Mcdaniel MD PCP - General 08/10/10
[2025-03-06 16:48] LABS: Resp Syncy Virus RNA Qual PCR NEGATIVE (Negative); SARS COV2 PCR INHOUSE NEGATIVE (Negative)
[2025-03-06 18:14] VITALS: BP 163/86; PULSE 82; RESP 16; TEMP 36.6; O2SAT 96
== END 2025-03-06 18:14 | disposition home or self-care (01) ==
PROVIDERS: Physician Assistant Medical; Emergency Provider Student in an Organized Health Care Education/Training Program; PCP Internal Medicine
DX: R20.0 Anesthesia of skin (principal); R53.1 Weakness; R42 Dizziness and giddiness; R51.9 Headache, unspecified
CPT/HCPCS: 36415; 70450; 80053; 83735; 84702; 85025; 87637; 99284

== ENCOUNTER → 2025-03-06 14:45 | Outpatient (BNV) | payer MEDICAID, SELFPAY | PROVIDERS: PCP Internal Medicine; Visit Provider Radiology Diagnostic Radiology | DX: R42 Dizziness and giddiness (principal) | CPT/HCPCS: 70450 ==

== ENCOUNTER 2025-03-23 11:06 | Outpatient (REF) | payer MEDICAID, SELFPAY ==
--- OUTSIDE RECORDS SUMMARY | 2025-03-02 09:40 | XMS_ITS | Encounter Summary ---
Author Organization [employer] Address [address] [facility] 7t [place] [address] Care Team Providers Care Armhole Baster Jumpbasting Name Role Phone Claudette Garcia MD Primary Care Provide r Reason for Referral * Neurology (Routine) - Closed Specialty Diagnoses / Procedures Referred By Contac t Referred To Contact Diagnoses Paresthesia of foot, bilateral Paresthesia of upper limb Procedures Nerve conduction test Jose Garcia MD [address] [place] [address] Phone: tel: fax: [address] [phone] Phone: tel: fax: Referral ID Status Reason Start Date Expiration Date Visits Re quested Visits Authorized [id number] Closed 03/23/2025 03/23/2026 1 1 * Neurology (Routine) - Closed Specialty Diagnoses / Procedures Referred By Contac t Referred To Contact Diagnoses Paresthesia of foot, bilateral Paresthesia of upper limb Procedures EMG Jose Garcia MD [address] [place] [address] Phone: tel: fax: [address] [phone] Phone: tel: fax: Referral ID Status Reason Start Date Expiration Date Visits Re quested Visits Authorized [id number] Closed 03/23/2025 03/23/2026 1 1 Reason for Visit * Reason Comments Numbness Encounter Details Date Type Department Care Team ([facility] st Contact Info) Description 03/02/2025 9:40 AM EST Office Visit [facility] [address] [place] [phone] NameJose MD [address] [place] [address] Paresthesia of foot, bilateral (Primary Dx); Paresthesia [...] in this encounter Progress Notes * Jose Garcia MD - 03/02/2025 9:40 AM EST Subjective [...] low back pain, no joint pain, no joint swelling or redness, no rash. She does not [...] 03/28/2025 10:15 AM Claudette Rainey MD MEDICINE [facility] 04/05/2025 1:00 PM Kira Stevenson OD [facility] documented in this encounter Miscellaneous Notes * Addendum Note - Jose Garcia MD - 03/02/2025 9:40 AM ESTAddended by: JOSE GARCIA on: 03/23/2025 06:44 AM Modules accepted: Orders documented in this encounter Plan of Treatment Upcoming Encounters Date Type Department Care Team (Late st Contact Info) Description 03/28/2025 10:15 AM EST Office Visit [facility] MEDICINE [address] [place] [address] Claudette Garcia MD [address] [place] [address] 04/05/2025 1:00 PM EST Office Visit [facility] OPTOMETRY [address] [place], [place] [phone] Tarkeily, Kira, OD [address] [place] [address] Scheduled Orders Name Type Priority Associated Diagnoses Orde r Schedule EMG Neurology Routine Paresthesia of foot, bilateral Paresthesia of upper limb Expected: 03/23/2025 (Approximate), Expires: 03/23/2026 Nerve conduction test Neurology Routine Paresthesia of foot, bilateral Paresthesia of upper limb Expected: 03/23/2025 (Approximate), Expires: 03/23/2026 documented as of this encounter Procedures Procedure [...] Free T4 2.55 0.32 - 4.0 uIU/mL [facility] Blood Venous blood specimen / Unknown 03/02/2025 10:07 AM EST 03/02/2025 11:49 AM EST us Jose Garcia MD LAB BLOOD ORDERABLES Final Resul t Performing Organization Address [facility] Co de Phone Number [facility] [address] [place] [phone] * Vitamin B12/Folate, Serum Panel (03/02/2025 10:07 AM EST) Vitamin B12 388 200 - 900 pg/mL [facility] Comment:NORMAL 200-900 PG/ML INDETERMINATE 160-199 PG/ML DEFICIENT < 160 PG/ML Folate 9.3 > or = 4.0 ng/mL [facility] Comment:Reference Values:> o r = 4.0 ng/mL< 4.0 ng/mL suggests folate deficiency Methotrexate, aminopterin and folinic acid(leucovorin) are chemotherapeutic agents whose molecularstructures are similar to folate; therefore, the Architectfolate assay cannot be used for patients using these drugs. Blood Venous blood specimen / Unknown 03/02/2025 10:07 AM EST 03/02/2025 11:49 AM EST us Jose Garcia MD LAB BLOOD ORDERABLES Final Resul t Performing Organization Address [facility] Phone Number [facility] [address] [place] [phone] * Hemoglobin A1c (03/02/2025 10:07 AM EST) Hemoglobin A1c 5.4 <6.0 % [facility] Comment:Hemoglobin A1C Refer ence Range Adults: 4.8 - 6.0 % Non diabetic: < 6.0 % Goal: < 7.0 %Additional Action Suggested: > 8.0 %Note: Hemoglobin A1c results are invalid for patients with abnormal amounts of HbF. Blood transfusions may impact the HbA1c concentration in the patient sample. Estimated Average Glucose 108 mg/dL [facility] Comment:eAG = Estimated ave rage glucose which is %A1C expressed asaverage glucose, using the formula of the A0G-FpuisefLbfflrn Glucose study (ADAG), Diabetes Care, Vol.31,#8,2007 Blood Venous blood specimen / Unknown 03/02/2025 10:07 AM EST 03/02/2025 11:58 AM EST us Jose Garcia MD LAB BLOOD ORDERABLES Final Resul t Performing Organization Address [facility] Co de Phone Number [facility] [address] [place] [phone] * (ABNORMAL) Basic Metabolic Panel (03/02/2025 10:07 AM EST) Sodium 141 135 - 145 mmol/L [facility] Potassium 4.3 3.3 - 5.1 mmol/L [facility] Chloride 107 96 - 108 mmol/L [facility] Carbon Dioxide 28 22 - 29 mmol/L [facility] Anion Gap 10(L) 12 - 20 [facility] Urea Nitrogen (BUN) 13 9 - 16 mg/dL [facility] Creatinine, Serum 0.71 0.5 - 1.4 mg/dL [facility] Estimated Glomerular Filt Rate >60 [facility] Comment:Chronic Kidney Disea se: Estimated GFR < 60 mL/min/1.39x9Cxmzbi Kidney Disease: Estimated GFR < 15 mL/min/1.73m2 Glucose 103 60 - 115 mg/dL [facility] Calcium 9.5 8.4 - 10.2 mg/dL [facility] Blood Venous blood specimen / Unknown 03/02/2025 10:07 AM EST 03/02/2025 11:49 AM EST us Jose Garcia MD LAB BLOOD ORDERABLES Final Resul t Performing Organization Address [facility]/ZIP Co de Phone Number [facility] [address] [place] [phone] documented in this encounter Visit Diagnoses Diagnosis Paresthesia of foot, bilateral- Primary Paresthesia of upper limb documented in this encounter Additional Health Concerns Assessment Noted Time PHQ-9 Depression Total Score: 1 01/28/20 25 9:26 AM EDT documented as of this encounter Care Teams Armhole Baster Jumpbasting Relationship Specialty Start Date End Date Claudette Garcia MD [address] [place] [address] PCP - General Family Medicine 01/25/22 documented as of this encounter
--- NOTE | 2025-03-23 | EMG_ITS ---
Chief complaint: Numbness Referred by:?Jose Whalen MD Procedure done: Bilateral upper extremities and right lower extremity NCS/EMG Bilateral median and ulnar motor studies were performed. Right tibial and peroneal motor studies were performed. Bilateral median and ulnar mixed sensory and ortho sensory studies were performed. Bilateral radial sensory, right superficial peroneal and sural sensory, and bilateral median and lateral antecubital brachial sensory studies were performed. Paraspinal muscles were tested with a needle. Findings: Motor and most of the sensory studies were with a normal range. Right median and lateral mixed plantars sensory responses were absent. Impression: No significant abnormality noted in upper extremities. 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 Codin [id number] extremities MTDD
--- OUTSIDE RECORDS SUMMARY | 2025-03-23 13:14 | XMS_ITS | Encounter Summary ---
Author Organization [employer] Address [address] [facility] 7t [place] [address] Care Team Providers Care Water Team Leader Name Role Phone Claudette Garcia MD Primary Care Provide r Reason for Visit * Reason Onset Date Comments Med Refill 05/06/2023 Encounter Details Date Type Department Care Team (Late st Contact Info) Description 05/06/2023 Refill [facility] 230 [place], [place] [phone] Claudette Garcia MD 230 [place], [place] [phone] Pruritus of both hands Social History Tobacco [...] Description 03/28/2025 10:15 AM EST Office Visit [facility] MEDICINE 230 [place] [address] Claudette Garcia MD 230 [place] [address] 04/05/2025 1:00 PM EST Office Visit [facility] OPTOMETRY [address] [place] [address] TarKira michaud, OD [address] [place] [address] documented as of this encounter Visit Diagnoses Diagnosis Pruritus of both hands documented in this encounter Additional Health Concerns Assessment Noted Time PHQ-9 Depression Total Score: 11 023 2:41 PM EDT documented as of this encounter Care Teams Water Team Leader Relationship Specialty Start Date End Date Claudette Garcia MD [address] [place] [id number] PCP - General Family Medicine 01/25/22 documented as of this encounter
--- OUTSIDE RECORDS SUMMARY | 2025-03-23 13:14 | XMS_ITS | Encounter Summary ---
Author Organization [employer] Address [address] [facility] 7t [place] [address] Care Team Providers Care Residential Director Name Role Phone Claudette Garcia MD Primary Care Provide r Reason for Visit * Reason Onset Date Comments Results 12/16/2022 PAP results Encounter Details Date Type Department Care Team (Late st Contact Info) Description 12/16/2022 Telephone [facility] 230 [place], [place] [phone] Claudette Garcia MD 230 [place], [place] [phone] Results (PAP results/) Social History Tobacco Use [...] Description 03/28/2025 10:15 AM EST Office Visit [facility] MED[facility] 230 [place] [address] Claudette Garcia MD 230 [place] [address] 04/05/2025 1:00 PM EST Office Visit [facility] OPTOMETRY [address] [place] [address] Kira Stevenson, OD 267 [place] [address] documented as of this encounter Visit Diagnoses Not on filedocumented in this encounter Additional Health Concerns Assessment Noted Time PHQ-9 Depression Total Score: 11 023 2:41 PM EDT documented as of this encounter Care Teams Residential Director Relationship Specialty Start Date End Date Claudette Garcia MD 230 [place] [address] PCP - General Family Medicine 01/25/22 documented as of this encounter
--- OUTSIDE RECORDS SUMMARY | 2025-03-23 13:14 | XMS_ITS | Encounter Summary ---
Author Organization [employer] Address [address] [facility] 7t [place] [address] Care Team Providers Care Lead Php Developer Name Role Phone Claudette Garcia MD Primary Care Provide r Reason for Visit * Reason Onset Date Comments Referral 03/22/2025 Encounter Details Date Type Department Care Team (Late st Contact Info) Description 03/22/2025 Telephone [facility] 230 [place], [place] [phone] Claudette Garcia MD 230 [place], [place] [phone] Referral Social History Tobacco Use Types Packs/Day Years [...] 10:40 AM EDT Sexual Orientation Straight 08/01/2022 6 :41 PM EDT documented as of this encounter Miscellaneous Notes * Telephone Encounter - Emi Orozco RN - 03/22/2025 4:39 PM EST [facility] is requesting EMG order along with the nerve conduction order already placed (03/02/25- walk invisit). Thanks! * Telephone Encounter - Amalia Nielsen - 03/22/2025 3:27 PM EST Tc from [facility] (neurology) stateing that I need new refferial adding emg on it so then can to test. Pt appointment is 03/23 Please contact at [facility] (neurology) documented in this encounter Plan of Treatment Upcoming Encounters Date Type Department Care Team (Late st Contact Info) Description 03/28/2025 10:15 AM EST Office Visit [facility] MED[facility] 230 [place], [place] [phone] Claudette Garcia MD 230 [place], [place] [phone] 04/05/2025 1:00 PM EST Office Visit [facility] OPTOMETRY [address] [place] [address] Kira Stevenson, OD 267 [place] [address] documented as of this encounter Visit Diagnoses Not on filedocumented in this encounter Additional Health Concerns Assessment Noted Time PHQ-9 Depression Total Score: 1 01/28/20 25 9:26 AM EDT documented as of this encounter Care Teams Lead Php Developer Relationship Specialty Start Date End Date Claudette Garcia MD [address] [place] [id number] PCP - General Family Medicine 01/25/22 documented as of this encounter
--- OUTSIDE RECORDS SUMMARY | 2025-03-23 13:14 | XMS_ITS | Encounter Summary ---
Author Organization [employer] Address [address] 7[address] [place] [address] Care Team Providers Care Constitutional Law Professor Name Role Phone Claudette Garcia MD Primary Care Provide r Encounter Details Date Type Department Care Team ([facility] st Contact Info) Description 09/01/2023 Orders Only [facility] WALK[facility] 230 [place], [place] [phone] Jesus Snow MD 230 [place], [place] [phone] Social History Tobacco Use Types Packs/Day Years [...] Office Visit [facility] MEDICINE [address] [place] [address] Claudette Garcia MD 230 [place] [address] 04/05/2025 1:00 PM EST Office Visit [facility] OPTOMETRY 267 [place] [address] Tarka, Kira, OD 267 [place] [address] documented as of this encounter Visit Diagnoses Not on filedocumented in this encounter Additional Health Concerns Assessment Noted Time PHQ-9 Depression Total Score: 11 023 2:41 PM EDT documented as of this encounter Care Teams Constitutional Law Professor Relationship Specialty Start Date End Date Claudette Garcia MD 230 [place] [address] PCP - General Family Medicine 01/25/22 documented as of this encounter
--- OUTSIDE RECORDS SUMMARY | 2025-03-23 13:14 | XMS_ITS | Encounter Summary ---
Author Organization [employer] Address [address] [facility] 7t [place] [address] Care Team Providers Care Manager Scientific Name Role Phone Claudette Garcia MD Primary Care Provide r Reason for Visit * Reason Onset Date Comments Med Refill 02/18/2025 Encounter Details Date Type Department Care Team (Late st Contact Info) Description 02/18/2025 Refill [facility] [address] [place] [address] [phone] Claudette Garcia MD 230 [place], [place] [phone] Allergic rhinitis, unspecified seasonality, unspecified trigger Social [...] Description 03/28/2025 10:15 AM EST Office Visit [facility] MED[facility] 230 [place] [address] Claudette Garcia MD 230 [place] [address] 04/05/2025 1:00 PM EST Office Visit [facility] OPTOMETRY [address] [place] [address] TarkaTessKira, OD 267 [place] [address] documented as of this encounter Visit Diagnoses Diagnosis Allergic rhinitis, unspecified seasonality, unspecified trigger documented in this encounter Additional Health Concerns Assessment Noted Time PHQ-9 Depression Total Score: 1 01/28/20 25 9:26 AM EDT documented as of this encounter Care Teams Manager Scientific Relationship Specialty Start Date End Date Claudette Garcia MD 230 [place] [address] PCP - General Family Medicine 01/25/22 documented as of this encounter
--- OUTSIDE RECORDS SUMMARY | 2025-03-23 13:14 | XMS_ITS | Encounter Summary ---
Author Organization [employer] Address [address] [facility] 7t [place] [address] Care Team Providers Care Store Sales Consultant Name Role Phone Claudette Garcia MD Primary Care Provide r Encounter Details Date Type Department Care Team ([facility] st Contact Info) Description 01/31/2025 Results Follow-Up [facility] MEDICINE [address] [place] [address] Diana Fuentes CNM [address] [place] [address] Chlamydia/N. Gonorrhoeae RNA, TMA, Vagina Social History [...] 10:15 AM EST Office Visit [facility] MEDICINE [address] [place] [address] Claudette Garcia MD 230 [place] [address] 04/05/2025 1:00 PM EST Office Visit [facility] OPTOMETRY [address] [place] [address] Tarka Kira, OD 267 [place] [address] documented as of this encounter Visit Diagnoses Not on filedocumented in this encounter Additional Health Concerns Assessment Noted Time PHQ-9 Depression Total Score: 1 01/28/20 25 9:26 AM EDT documented as of this encounter Care Teams Store Sales Consultant Relationship Specialty Start Date End Date Claudette Garcia MD [address] [place] [phone] PCP - General Family Medicine 01/25/22 documented as of this encounter
--- OUTSIDE RECORDS SUMMARY | 2025-03-23 13:14 | XMS_ITS | Encounter Summary ---
Author Organization [employer] Address [address] [address] [facility] [address] 7t [place] [address] Care Team Providers Care Regulatory And Compliance Technician Name Role Phone Claudette Garcia MD Primary Care Provide r Reason for Visit * Reason Onset Date Comments Med Refill 05/06/2023 Encounter Details Date Type Department Care Team (Late st Contact Info) Description 05/06/2023 Refill [facility] 230 [place], [place] [phone] Jesus Snow MD 230 [place], [place] [phone] Vitamin D deficiency Social History Tobacco Use [...] Description 03/28/2025 10:15 AM EST Office Visit [facility] MED[facility] 230 [place] [address] Claudette Garcia MD 230 [place] [address] 04/05/2025 1:00 PM EST Office Visit [facility] OPTOMETRY 267 [place] [address] Tarka, Kira, OD 267 [place] [address] documented as of this encounter Visit Diagnoses Diagnosis Vitamin D deficiency documented in this encounter Additional Health Concerns Assessment Noted Time PHQ-9 Depression Total Score: 11 023 2:41 PM EDT documented as of this encounter Care Teams Regulatory And Compliance Technician Relationship Specialty Start Date End Date Claudette Garcia MD [address] [place] [id number] PCP - General Family Medicine 01/25/22 documented as of this encounter
--- OUTSIDE RECORDS SUMMARY | 2025-03-23 13:14 | XMS_ITS | Encounter Summary ---
Author Organization [employer] Address [address] [facility] [facility] [address] 7t [place] [address] Care Team Providers Care Deputy Juvenile Officer Name Role Phone Claudette Garcia MD Primary Care Provide r Reason for Visit * Reason Onset Date Comments Med Refill 05/06/2023 Encounter Details Date Type Department Care Team (Late st Contact Info) Description 05/06/2023 Refill [facility] WALK[facility] C[facility] 230 [place], [place] [phone] Wilman Boudreaux MD 230 [place], [place] [phone] COVID-19 Social History Tobacco Use Types Packs/Day [...] Description 03/28/2025 10:15 AM EST Office Visit [facility] MEDICINE [address] [place] [address] Claudette Garcia MD 230 [place] [address] 04/05/2025 1:00 PM EST Office Visit [facility] OPTOMETRY 267 [place] [address] TarKira michaud, OD 267 [place] [address] documented as of this encounter Visit Diagnoses Diagnosis COVID-19 documented in this encounter Additional Health Concerns Assessment Noted Time PHQ-9 Depression Total Score: 11 023 2:41 PM EDT documented as of this encounter Care Teams Deputy Juvenile Officer Relationship Specialty Start Date End Date Claudette Garcia MD [address] [place] [address] PCP - General Family Medicine 01/25/22 documented as of this encounter
--- OUTSIDE RECORDS SUMMARY | 2025-03-23 13:14 | XMS_ITS | Clinical Summary ---
Author Organization [facility] ity Address [address] [place] [address] Care Team Providers Care Transmitter Engineer Name Role Phone Christi Mcdaniel MD Primary [...] age to complete this topic Care Teams Transmitter Engineer Relationship Specialty Start Date End Date Christi Mcdaniel MD PCP - General 08/10/10
--- OUTSIDE RECORDS SUMMARY | 2025-03-23 13:14 | XMS_ITS | Encounter Summary ---
Author Organization [employer] Address [address] [facility] 7t [place] [address] Care Team Providers Care Basic Sciences Professor Name Role Phone Claudette Garcia MD Primary Care Provide r Reason for Visit * Reason Onset Date Comments Med Refill 02/18/2025 Encounter Details Date Type Department Care Team (Late st Contact Info) Description 02/18/2025 Refill [facility]ALK[facility] 230 [place], [place] [phone] Jesus Snow MD 230 [place] [address] COVID-19 Social History Tobacco Use Types Packs/Day [...] 03/28/2025 10:15 AM EST Office Visit [facility] MEDICINE 230 [place] [address] Claudette Garcia MD 230 [place] [address] 04/05/2025 1:00 PM EST Office Visit [facility] OPTOMETRY 267 [place] [address] TarkaKira, OD 267 [place] [address] documented as of this encounter Visit Diagnoses Diagnosis COVID-19 documented in this encounter Additional Health Concerns Assessment Noted Time PHQ-9 Depression Total Score: 1 01/28/20 25 9:26 AM EDT documented as of this encounter Care Teams Basic Sciences Professor Relationship Specialty Start Date End Date Claudette Garcia MD [address] [place] [address] PCP - General Family Medicine 01/25/22 documented as of this encounter
--- OUTSIDE RECORDS SUMMARY | 2025-03-23 13:14 | XMS_ITS | Encounter Summary ---
Author Organization [employer] Address [address] [facility] 7t [place] [address] Care Team Providers Care Director Title Name Role Phone Claudette Garcia MD Primary Care Provide r Reason for Visit * Reason Onset Date Comments Med Refill 02/18/2025 Encounter Details Date Type Department Care Team (Late st Contact Info) Description 02/18/2025 Refill [facility] 230 [place], [place] [phone] Molly Bryant MD 230 [place], [place] [phone] Social History Tobacco Use Types Packs/Day Years [...] 10:15 AM EST Office Visit [facility] MED[facility] 230 [place] [address] Claudette Garcia MD 230 [place] [address] 04/05/2025 1:00 PM EST Office Visit [facility] OPTOMETRY [address] [place] [address] Tarka, Kira, OD 267 [place] [address] documented as of this encounter Visit Diagnoses Not on filedocumented in this encounter Additional Health Concerns Assessment Noted Time PHQ-9 Depression Total Score: 1 01/28/20 25 9:26 AM EDT documented as of this encounter Care Teams Director Title Relationship Specialty Start Date End Date Claudette Garcia MD [address] [place] [address] PCP - General Family Medicine 01/25/22 documented as of this encounter
--- OUTSIDE RECORDS SUMMARY | 2025-03-23 13:14 | XMS_ITS | Clinical Summary ---
Author Organization [employer] Address [address] [facility] [address] [place] [address] Care Team Providers Care Manager Of Change Name Role Phone Claudette Garcia MD Primary Care Provide r Allergies No known active allergies Medications famotidine (Pepcid) 20 MG tablet Take 1 tablet by mouth. 2 Active hydrocortisone 2.5 % creamIndications :Pruritus of both hands Apply topically 2 times daily. 28 g 3 Active cetirizine (ZyrTEC) 10 MG tablet TAKE 1 TABLET BY MOUTH EVERY DAY 90 tablet 4 Active acetaminophen (Tylenol) 500 MG tablet Take 2 tablets (1,000 mg) by mouth every 6 (six) hours if needed for moderate pain or fever. 40 tablet 4 Active ibuprofen 400 MG tabletIndication s:COVID-19 TAKE 1 TABLET BY MOUTH EVERY 6 HOURS IF NEEDED FOR FEVER OR MODERATE PAIN 30 tablet 4 Active albuterol 108 (90 Base) MCG/ACT inhaler Inhale 2 puffs every 6 (six) hours if needed for wheezing. 18 g 11 5 07/28/19 26 Active cholecalciferol (Vitamin D-3) 25 MCG (1000 UT) capsuleIndicatio ns:Vitamin D deficiency TAKE 1 CAPSULE BY MOUTH EVERY DAY 90 capsule 5 Active diphenhydrAMINE (BENADryl) 25 MG capsule TAKE 1 TO 2 CAPSULES EVERY 6 HOURS IF NEEDED FOR ITCHING OR RASH 30 capsule 5 Active hydrocortisone 2.5 % cream APPLY TOPICALLY TWICE A DAY 15 g 1 5 Active cetirizine (ZyrTEC) 10 MG tabletIndication s:Allergic rhinitis, unspecified seasonality, unspecified trigger Take 1 tablet (10 mg) by mouth at bedtime. 90 tablet 5 Active fluticasone (Flonase) 50 MCG/ACT nasal sprayIndications :Allergic rhinitis, unspecified seasonality, unspecified trigger Administer 1 spray into each nostril Once per day. Shake gently. Before first use, prime pump. After use, clean tip and replace cap. 16 g 2 5 02/19/20 26 Active oxymetazoline ([facility] Nasal [place]) 0.05 % nasal spray Administer 2 sprays into each nostril 2 times daily. Do not use for more than 3 days.ADMINISTER 2 SPRAYS INTO EACH NOSTRIL EVERY 12 (TWELVE) HOURS IF NEEDED FOR CONGESTION FOR UP TO 2 DAYS. DO NOT USE FOR MORE THAN 3 DAYS. 30 mL 5 Active omeprazole OTC (PriLOSEC OTC) 20 MG EC tablet Take 1 tablet (20 mg) by mouth before breakfast. Do not crush, chew, or split. 90 tablet 5 02/19/20 26 Active naproxen (Naprosyn) 500 MG tablet TAKE 1 TABLET BY MOUTH WITH BREAKFAST AND EVENING MEAL 10 tablet 11 5 Active Active Problems Problem Noted Date Diagnosed [...] adult 03/26/2022 Severe obesity (BMI >= 40) (CMS/HCC) 03/26/2022 Dcyb-wj-sgbf spots 08/28/2011 Attention deficit disorder of childhood 08/28/19 12 Encounters Date Type Department Care Team Description 03/22/[address] [address] Claudette Garcia MD Referral 03/14/2025 Patient Outreach [address] [address] Claudette Garcia MD Pre-visit Planning (SDOH screening completed on 01/27/2025) 03/06/2025 Orders Only GENERIC EXTERNAL DATA DEPARTMENT Provider, Generic External Data 03/03/2025 Results Follow-Up [address] [address] Jose Whalen MD Basic Metabolic Panel, Hemoglobin A1c, Vitamin B12/Folate, Serum Panel, TSH W/Reflex to FT4 03/02/2025 9:40 AM EST Office Visit [facility] [address] [place] [phone] Jose Whalen MD Paresthesia of foot, bilateral (Primary Dx); Paresthesia of upper limb 03/02/2025 Travel 02/20/2025 Refill [facility] [address] [place] [phone] Jesus Snow MD COVID-19 02/18/2025 Refill [facility] [address] [place] [phone] Molly Bryant MD 02/18/2025 Refill [facility] [address] [place] [phone] Jesus Snow MD COVID-19 02/18/2025 Refill [facility] [address] [place] [phone] Claudette Garcia MD Allergic rhinitis, unspecified seasonality, unspecified trigger 02/18/2025 Refill [facility] [address] [place] [address] Claudette Garcia MD Vitamin D deficiency; Allergic rhinitis, unspecified seasonality, unspecified trigger 02/15/2025 Orders Only [facility] External Provider, [facility] 01/31/2025 Results Follow-Up [facility] [address] [place] [phone] Juan Sawant CNM Chlamydia/N. Gonorrhoeae RNA, TMA, Vagina 01/27/2025 9:30 AM EDT Office Visit [address] [address] Juan Sawant CNM Screening examination for venereal disease (Primary Dx); Vaginal odor; Checking subdermal contraceptive 01/27/2025 Travel 01/26/[address] [address] Claudette Garcia MD chartprep 12/28/2024 1:40 PM EDT Office Visit [facility] [address] [place] [phone] Johanny Lopez MD Costochondritis (Primary Dx); Chest discomfort; Witnessed episode of apnea; Daytime somnolence; BMI 50.0-59.9, adult ([facility]) 12/28/2024 Travel from Last 3 Months Immunizations Immunization Administration [...] kg (350 lb 9.6 oz) 03/02/2025 9:31 A M EST Height 175.3 cm (5' 9 ) 03/02/2025 9:31 AM EST Body Mass Index 51.77 03/02/2025 9:31 AM EST Plan of Treatment Upcoming Encounters Date Type Department Care Team (Late st Contact Info) Description 03/28/2025 10:15 AM EST Office Visit [facility] [address] [place] [address] Claudette Garcia MD [address] [place] [address] 04/05/2025 1:00 PM EST Office Visit [facility] [address] [place] [address] Kira Stevenson, OD [address] [place] [address] Health Maintenance Due Date Last Done Comments Hepatitis A Vaccines (1 of 2 - Risk 2-dose series) 2017 DTaP/Tdap/Td Vaccines (7 - Td or Tdap) [...] Completed 01/25/2022 Hepatitis C Screening Completed 01/25/2022 Meningococcal B Vaccine Aged Out No l [...] Procedure Name Priority Date/Time Associated Diagnosis Comments CT HEAD WO CONTRAST Routine 03/06/2025 4 :20 PM EST SARS COV2/INFLUENZA A/B AND RSV RNA QL NAAT Routine 03/06/2025 4:05 PM EST HCG, TOTAL, QN Routine 03/06/2025 [...] Recently Relevant to Health Maintenance Results * CT Head w/o Contrast (03/06/2025 4:20 PM EST) Anatomical Region Laterality Modality Head, Neck Computed Tomogra phy 03/06/2025 4:20 PM EST Narrative 03/06/2025 4:22 PM EST [place] [address] CT Scan Report Signed Patient: Brenda Perez MR#: [id number] : 2000 Acct:[id number] Age/Sex: 24 / F ADM Date: 03/06/25 Loc: HO.ED Attending Dr: Ordering Physician: Shobha Walls Date of Service: 03/06/25 Procedure(s): CT head/brain wo IV con Accession Number(s): [id number] cc: Claudette Garcia MD; Shobha Walls Report Number: [id number]: Total DLP = 803.00 mGy-cm Reason for Exam: dizziness HAs CLINICAL HISTORY: dizziness HAs CT Head Without Contrast: Comparison: 11/27/2023 Findings: Cortical sulci are symmetric Basal ganglia are unremarkable No shift in midline structures No intraparenchymal bleeding or abnormal extra axial blood fluid collections Normal pituitary size. Cerebellar pontine angles and internal auditory canals are unremarkable. Clear paranasal sinuses Unremarkable orbital structures No depressed fractures. The right parotid gland is not visualized and is normal location posterior to the sternocleidomastoid on limited field of view. An island of 2.5 cm diameter parotid tissue is located anterior to the right masseter , indenting the buccal space. Correlate with surgical history. Impression: Mastoid air cells and middle ear cavities are clear. Unremarkable CT of the head, no signs of acute trauma This document has been electronically signed by: Andi Farfan MD on 03/06/2025 16:20:51 Dictated By: Andi Farfan MD Signed By: <Electronically signed by Andi Farfan MD in OV> 03/06/25 162 DD/ 162 TD/TT: 03/06/25 1620 College Tutor: Procedure Note Donotuseinterpreter, Image - 03/06/[address] [place] [address] [address] Scan Report Signed Patient: Brenda Perez#: M [id number] : 2000Acct:[id number] Age/Sex: 24 / FADM Date: 03/06/25 Loc: HO.ED Attending Dr: Ordering Physician: Shobha Walls Date of Service: 03/06/25 Procedure(s): CT head/brain wo IV con Accession Number(s): [id number] cc: Claudette Garcia MD; Shobha Walls Report Number: [id number]: Total DLP = 803.00 mGy-cm Reason for Exam: dizziness HAs CLINICAL HISTORY: dizziness HAs CT Head Without Contrast: Comparison: 11/27/2023 Findings: Cortical sulci are symmetric Basal ganglia are unremarkable No shift in midline structures No intraparenchymal bleeding or abnormal extra axial blood fluid collections Normal pituitary size. Cerebellar pontine angles and internal auditory canals are unremarkable. Clear paranasal sinuses Unremarkable orbital structures No depressed fractures. The right parotid gland is not visualized and is normal location posterior to the sternocleidomastoid on limited field of view. An island of 2.5 cm diameter parotid tissue is located anterior to the right masseter , indenting the buccal space. Correlate with surgical history. Impression: Mastoid air cells and middle ear cavities are clear. Unremarkable CT of the head, no signs of acute trauma This document has been electronically signed by: Andi Farfan MD on 03/06/2025 16:20:51 Dictated By: Andi Farfan MD Signed By: <Electronically signed by Andi Farfan MD in OV> 03/06/25 1622 DD/ 162 TD/TT: 03/06/251619 College Tutor: [facility] External Provider IMG CT PROCEDURES Edited Result - Final * SARS-CoV-2 RNA, Influenza A/B, and RSV RNA, Ql NAAT (03/06/2025 4:05 PM EST) Influenza A PCR NEGATIVE Negative [facility] Influenza B PCR NEGATIVE Negative [facility] Resp Syncy Virus RNA Qual PCR NEGATIVE Negative [facility] SARS COV2 PCR NEGATIVE Negative [facility] Comment:All test results mus t be correlated with clinical findings.Negative results do not preclude SARS-CoV2, influenza Avirus, influenza B virus and/or RSV infectionand should not be used as the sole basis for treatment orother patient management decisions. Negative results must becombined with clinical observations, patient history, andepidemiological information.This test has not been evaluated for monitoring treatment ofinfection.This test has been authorized by the FDA under an EmergencyUse Authorization (EUA) for use by authorized laboratories.Testing performed on the [employer] GeneXpert utilizingreal-time RT-PCR.All SARS CoV2 and positive influenza A/B results arereported to [facility]. 03/06/2025 4:05 PM EST 03/06/2025 4:09 PM EST us Generic External Data Provider LAB MICROBIOLOGY - GENERAL ORDERABLES Final Result [facility] [address] [place], [place] [phone] * CBC auto differential (03/06/2025 3:04 PM EST) White Blood Count 8.8 4.8 - 10.8 X10*3/uL [facility] Red Blood Count 4.55 4.20 - 5.50 X10*6/uL [facility] Hemoglobin 13.0 12.0 - 16.0 g/dl [facility] Hematocrit 40.2 37.0 - 47.0 % [facility] Mean Corpuscular Volume 88.4 80.0 - 98.0 fL [facility] Mean Corpuscular Hemoglobin 28.6 27.0 - 33.0 pg [facility] Mean Corpuscular HGB Conc 32.3 31.0 - 35.0 g/dl [facility] Red Cell Distribution Width 12.4 11.0 - 16.0 % [facility] Platelet Count 369 160 - 400 X10*3/uL [facility] Mean Platelet Volume 9.8 9.4 - 12.3 fL [facility] Neutrophils Percent Auto 64.0 45 - 73 % [facility] Imm Gran Pct Auto 0.3 0.0 - 0.4 % [facility] Lymphocytes Percent Auto 25.8 20 - 40 % [facility] Monocytes Percent Auto 6.8 2 - 11 % [facility] Eosinophils Percent Auto 2.3 0 - 4 % [facility] Basophils Percent Auto 0.8 0 - 2 % [facility] NRBC Pct Auto 0.0 0.0 - 0.2 /100WBC [facility] Neutrophils Absolute Auto 5.7 2.0 - 8.3 x10*3/uL [facility] Imm Gran Abs Auto 0.03 0.00 - 0.03 X10*3/uL [facility] Lymphocytes Absolute Auto 2.3 1.2 - 4.9 X10*3/uL [facility] Monocytes Absolute Auto 0.6 0.1 - 1.2 X10*3/uL [facility] Eosinophils Absolute Auto 0.2 0.0 - 0.4 X10*3/uL [facility] Basophils Absolute Auto 0.1 0.0 - 0.2 X10*3/uL [facility] NRBC Abs Auto 0.000 0.0 - 0.012 X10*3/uL [facility] 03/06/2025 3:04 PM EST 03/06/2025 3:07 PM EST Generic External Data Provider LAB BLOOD ORDERAB LES Final Result Performing Organization Address [facility] de Phone Number [facility] [address] [place] [phone] * hCG, Total, Quantitative (03/06/2025 3:04 PM EST) HCG Quantitative <2 mIU/mL [facility] Comment:Weeks post LMP Appro ximate hCG(Last Menstrual Period) Range (mIU/ml)3 - 4 weeks 9 - 1304 - 5 weeks 75 - 2,6005 - 6 weeks 850 - 20,8006 - 7 weeks 4000 - 100,2007 - 12 weeks 11,500 - 289,06558 - 16 weeks 18,300 - 137,75195 - 29 weeks (2nd trimester) 1,400 - 53,62438 - 41 weeks (3rd trimester) 940 - [...] ORDERAB LES Final Result Performing Organization Address [facility] Co de Phone Number [facility] [address] [place] [address] [phone] * Magnesium (03/06/2025 3:04 PM EST) Magnesium 1.6 1.6 - 2.6 mg/dL [facility] 03/06/2025 3:04 PM EST 03/06/2025 3:07 PM EST us Generic External Data Provider LAB BLOOD ORDERAB LES Final Result [facility] [address] [place] [phone] * (ABNORMAL) Comprehensive Metabolic Panel (03/06/2025 3:04 PM EST) Sodium 139 135 - 145 mmol/L [facility] Potassium 4.1 3.3 - 5.1 mmol/L [facility] Chloride 107 96 - 108 mmol/L [facility] Carbon Dioxide 25 22 - 29 mmol/L [facility] Anion Gap 11(L) 12 - 20 [facility] Urea Nitrogen (BUN) 13 9 - 16 mg/dL [facility] Creatinine, Serum 0.64 0.5 - 1.4 mg/dL [facility] Creatinine Clr Calc Pharmacy 218.0 [facility] Comment:Provided height and weight: 175.26 cm,160 kg.eGFR (calculated from the MDRD study equation) and eCrCl(calculated from the Cockcroft-Gault equation) are based ondifferent parameters and may not yield comparable results.If eCrCl result is absurd, please check patient'sheight/weight. Estimated Glomerular Filt Rate >60 [facility] Comment:Chronic Kidney Disea se: Estimated GFR < 60 mL/min/1.04v4Caaebp Kidney Disease: Estimated GFR < 15 mL/min/1.73m2 Glucose 95 60 - 115 mg/dL [facility] Calcium 9.5 8.4 - 10.2 mg/dL [facility] Bilirubin, Total 0.3 0.0 - 1.0 mg/dL [facility] Aspartate Amino Transferase 30 5 - 31 U/L [facility] Alanine Aminotransferase 42(H) 0 - 31 U/L [facility] Total Protein 7.3 6.5 - 8.0 g/dL [facility] Albumin Level 4.2 3.5 - 5.0 g/dL [facility] Alkaline Phosphatase 56 39 - 117 U/L [facility] 03/06/2025 3:04 PM EST 03/06/2025 3:07 PM EST us Generic External Data Provider LAB BLOOD ORDERAB LES Final Result Performing Organization Address [facility] Co de Phone Number [facility] [address] [place] [phone] * Vitamin B12/Folate, Serum Panel (03/02/2025 10:07 AM EST) Vitamin B12 388 200 - 900 pg/mL [facility] Comment:NORMAL 200-900 PG/ML INDETERMINATE 160-199 PG/ML DEFICIENT < 160 PG/ML Folate 9.3 > or = 4.0 ng/mL [facility] Comment:Reference Values:> o r = 4.0 [...] ORDERABLES Final Resul t Performing Organization Address [facility] Co de Phone Number [facility] [address] [place] [phone] * TSH W/Reflex to FT4 (03/02/2025 10:07 AM EST) TSH reflex Free T4 2.55 0.32 - 4.0 uIU/mL [facility] Blood Venous blood specimen / Unknown 03/02/2025 10:07 AM EST 03/02/2025 11:49 AM EST us Jose Whalen MD LAB BLOOD ORDERABLES Final Resul t Performing Organization Address [facility] Phone Number [facility] [address] [place] [phone] * Hemoglobin A1c (03/02/2025 10:07 AM EST) Hemoglobin A1c 5.4 <6.0 % [facility] Comment:Hemoglobin A1C Refer ence Range Adults: 4.8 - 6.0 % Non diabetic: < 6.0 % Goal: < 7.0 %Additional Action Suggested: > 8.0 %Note: Hemoglobin A1c results are invalid for patients with abnormal amounts of HbF. Blood transfusions may impact the HbA1c concentration in the patient sample. Estimated Average Glucose 108 mg/dL [facility] Comment:eAG = Estimated ave rage glucose which is %A1C expressed asaverage glucose, using the formula of the I3U-HudxnjcShbssuc Glucose study (ADAG), Diabetes Care, Vol.31,#8,Nov. 2007 Blood Venous blood specimen / Unknown 03/02/2025 10:07 AM EST 03/02/2025 11:58 AM EST us Jose Whalen MD LAB BLOOD ORDERABLES Final Resul t Performing Organization Address [facility] de Phone Number [facility] [address] [place] [phone] * (ABNORMAL) Basic Metabolic Panel (03/02/2025 10:07 AM EST) Sodium 141 135 - 145 mmol/L [facility] Potassium 4.3 3.3 - 5.1 mmol/L [facility] Chloride 107 96 - 108 mmol/L [facility] Carbon Dioxide 28 22 - 29 mmol/L [facility] Anion Gap 10(L) 12 - 20 [facility] Urea Nitrogen (BUN) 13 9 - 16 mg/dL [facility] Creatinine, Serum 0.71 0.5 - 1.4 mg/dL [facility] Estimated Glomerular Filt Rate >60 [facility] Comment:Chronic Kidney Disea se: Estimated GFR < 60 mL/min/1.89u8Nlnqua Kidney Disease: Estimated GFR < 15 mL/min/1.73m2 Glucose 103 60 - 115 mg/dL [facility] Calcium 9.5 8.4 - 10.2 mg/dL [facility] Blood Venous blood specimen / Unknown 03/02/2025 10:07 AM EST 03/02/2025 11:49 AM EST us Jose Whalen MD LAB BLOOD ORDERABLES Final Resul t Performing Organization Address City/State/[facility] Co de Phone Number [facility] [address] [place] [phone] * XR Chest 1 View (02/15/2025 9:02 PM EDT) Anatomical Region Laterality Modality Chest Radiographic Makenna ging 02/15/2025 9:02 PM EDT Narrative 02/15/2025 9:03 PM EDT [address] [address] XRay Report Signed Patient: Brenda Perez MR#: [id number] : 2000 Acct:[id number] Age/Sex: 24 / F ADM Date: 02/15/25 Loc: HO.ED Attending Dr: Ordering Physician: Chris Medina Date of Service: 02/15/25 Procedure(s): XR chest 1V Accession Number(s): [id number] cc: Chris Medina; Claudette Garcia MD Reason [...] in OV> 02/15/252102 DD/ 01 TD/TT: 02/15/252101 College Tutor: Procedure Note Donotuseinterpreter, Image - 02/15/[address] [address] XRay Report Signed Patient: Brenda Perez#: M [id number] : 2000Acct:[id number] Age/Sex: 24 / FADM Date: 02/15/25 Loc: .ED Attending Dr: Ordering Physician: Chris Medina Date of Service: 02/15/25 Procedure(s): XR chest 1V Accession Number(s): [id number] cc: Chris Medina; Claudette Garcia MD Reason [...] in OV> 02/15/252102 DD/ 01 TD/TT: 02/15/252101 College Tutor: [facility] External Provider IMG XR PROCEDURES Final Result * Influenza A B2 ID NOW (White) (02/15/2025 7:45 PM EDT) IDNOW SERIAL# [id number] [facility] Influenza A Negative Negative [facility] Influenza B2 Negative Negative [facility] Influenza A B2 Note See Note [facility] Comment:The White ID NOW In fluenza [...] GENERAL ORDERABLES Final Result Performing Organization Address [facility]/ZIP Co de Phone Number [facility] [address] [place] [phone] * Strep A Nucleic Acid (02/15/2025 7:45 PM EDT) IDNOW SERIAL# [id number] [facility] Strep A Nucleic Acid Negative Negative [facility] Comment:All test results mus t be [...] GENERAL ORDERABLES Final Result Performing Organization Address [facility]/ZIP Co de Phone Number [facility] [address] [place] [phone] * COVID-19 ID NOW (WHITE) (02/15/2025 7:45 PM EDT) IDNOW SERIAL# [id number] [facility] COVID-19 TEST Negative Negative [facility] COVID-19 NOTE See Note [facility] Comment: Results are for the identification [...] viruses.Testing facilities within the [facility] and itsterritories are required to report all positive results [...] use by authorized laboratories.Testing performed on the [employer] NOW utilizing NAAT. 02/15/2025 7:45 PM EDT 02/15/2025 7:51 PM EDT Generic External Data Provider LAB MOLECULAR MORALES GNOSTICS ORDERABLES Final Result [facility] [address] [place] [phone] * POCT fern test, vaginal fluid manually resulted (01/27/2025 10:19 AM EDT) [facility] Prep Positive Comment:pH 4.5, neg whiff, n eg clue, neg trich, neg wbc, pos hyphae Vaginal Fluid Vaginal structure / Unknown 01/27/2025 10:19 AM EDT Impressions Gina JuanEMMANUEL toth - 01/27/2025 10:19 AM EDT yeast Juan Torresgarryscott [facility] POINT OF CARE TEST ENTER/ EDIT ORDERABLES Final Result * Trichomonas RNA (Urine/Vaginal) (01/27/2025 10:00 AM EDT) Trichomas vaginalis RNA, QL, TMA NOT DETECTED NOT DETECTED [facility] Comment:For additional infor josephsaeed, please refer [email or web address]/faq/Trichomonastma(This link is being provided for informational/educational purposes only.)THIS TEST WAS PERFORMED AT:[facility] [place] [phone]-PIERRE GIL MD Swab 01/27/2025 10:0 0 AM EDT 01/27/2025 6:11 PM EDT Juan Sawant [facility] BODY FLUIDS AND STOOL S ORDERABLES Final Result [facility] [address] [place] [phone] * Chlamydia/N. Gonorrhoeae RNA, TMA, Vagina (01/27/2025 10:00 AM EDT) CT PCR NOT DETECTED Not Detect. [facility] Comment:A not detected test result does [...] psychologicalconsequences. NG PCR NOT DETECTED Not Detect. [facility] Comment:A not detected test result does [...] EDT 01/27/2025 6:11 PM EDT Juan Sawant [facility] MICROBIOLOGY - GENERA L ORDERABLES Final Result [facility] [address] [place] [phone] * Referral to Sleep Medicine (01/03/2025) Johanny Lopez MD OUTPATIENT REFERRAL ORDERA BLES Final Result * ECG 12 lead (12/28/2024 1:31 PM EDT) Narrative Johanny Lopez MD - 12/28/2024 1:31 PM EDT NSR 82 bpm No evidence of ischemia or past infarction Johanny Lopez MD ECG ORDERABLES Final Resu lt * Pap Smear (12/11/2022) 12/11/2022 12/13/2022 8:5 0 AM EDT Narrative [facility] - 12/28/2022 2:13 PM EDT ----- ------- Name: BRENDA PEREZ Age/Sex: 22/F : 2000 Unit#: [id number] Attend Dr: JUAN SAWANT [facility] Re12/12/22 Status: DEP REF Location: [facility] Disch: ----- ------- SPEC : [id number] RECD: 12/13/22-50 STATUS: KELLY ADDISON NUM: [id number] BERYL: 12/11/22- SUBM DR: JUAN SAWANT [facility] ENTERED: 12/13/22-1001 SP TYPE: Pap Smr [facility] DR: ORDERED: Pap Smear Interpretation Satisfactory for evaluation. Negative for intraepithelial lesion or malignancy. Clinical Information LMP: Unknown date Previous PAP test: Unknown date/findings Material Received ThinPrep-Vaginal/Cervical ----- ------- Signed (signature on file) Laura Tucker 12/28/22 1413 ----- ------- END OF REPORT Juan Sawant CNM LAB CYTOLOGY ORDERABLES F inal Result Performing Organization Address City/[facility]/ZIP Co de Phone Number [facility] [address] [place] [phone] * Lipid Panel, Standard (12/02/2022 3:59 PM EDT) Triglycerides 151 mg/dL [facility] Comment:Desirable Triglyceri de: less than 150 mg/dLBorderline High Triglyceride 150-199 mg/dLHigh Triglyceride: 200-499 mg/dLVery High Triglyceride: greater than or equal to 5OO mg/dL Cholesterol 147 mg/dL [facility] Comment:Desirable Cholestero l: less than 200 mg/dLBorderline High Cholesterol: 200-239 mg/dLHigh Cholesterol: greater than 239 mg/dL LDL Cholesterol Calculated 80 mg/dl [facility] Comment:Desirable LDL: less than 100 mg/dLNear Optimal/Above Optimal LDL: 110- 129 mg/dLBorderline High LDL: 130-159 mg/dLHigh LDL: 160-189 mg/dLVery High LDL: greater than or equal to 190 mg/dL HDL Cholesterol 37 mg/dL [facility] Comment:Desirable HDL: great er than 40 mg/dL Note: This HDL assay may give artificially low results in patients with liver disease. Blood Venous blood specimen / Unknown 12/02/2022 3:59 PM EDT 12/02/2022 5:47 PM EDT us Claudette Rainey MD LAB BLOOD ORDERABLES Final Result Performing Organization Address [facility]/ZIP Co de Phone Number [facility] [address] [place] [phone] * HEPATITIS C AB W/REFL TO [...] a test for HCV RNA (test code 11794) is suggested. For additional information please refer to http://[employer]/faq/HYJ39s0 (This link is being provided for informational/ educational purposes only.) 01/25/2022 10:1 3 AM EDT us Claudette Rainey MD HISTORICAL/NON ORDERA BLE LABS Final Result CONVERTED LEGACY LABS * HIV 1/2 ANTIGEN/ANTIBODY,FOURTH [...] purpose. For additional information please refer to http://[employer]/faq/MZY779 (This link is being provided for informational/ educational purposes only.) The performance of this assay has not been clinically validated in patients less than 2 years old. 01/25/2022 10:1 3 AM EDT Claudette Rainey MD LAB BLOOD ORDERABLES Final Result CONVERTED LEGACY LABS from Last 3 Months or Most Recently Relevant to Health Maintenance Insurance Care Teams Manager Of Change Relationship Specialty Start Date End Date Claudette aGrcia MD [address] [place] [phone] PCP - General Family Medicine 01/25/22
== END 2025-03-23 11:07 | disposition home or self-care (01) ==
LOC: HO.NEURO 11:06
PROVIDERS: PCP Internal Medicine; Visit Provider Internal Medicine Geriatric Medicine
DX: R20.0 Anesthesia of skin (principal); R20.2 Paresthesia of skin
CPT/HCPCS: 95886; 95913

== ENCOUNTER → 2025-03-23 11:15 | Outpatient (BNV) | payer MEDICAID, SELFPAY | PROVIDERS: PCP Internal Medicine; Visit Provider Psychiatry & Neurology Neurology | DX: R20.2 Paresthesia of skin (principal) | CPT/HCPCS: 95886; 95913 ==

== ENCOUNTER 2025-04-01 08:51 | Outpatient (REF) | payer MEDICAID, SELFPAY | END 2025-04-01 08:52 | disposition home or self-care (01) | LOC: HO.HHCL 08:51 | PROVIDERS: PCP Internal Medicine; Visit Provider Internal Medicine | DX: Z11.3 Encounter for screening for infections with a predominantly sexual mode of transmission (principal); G62.9 Polyneuropathy, unspecified | CPT/HCPCS: 36415; 83090; 83921; 86592 ==